=== PATIENT | male | born 1965 | race Caucasian/White ===

== ENCOUNTER 2019-11-02 19:34 | Inpatient (IN) ==
[2019-11-02] MEDS ORDERED: D50W SYRINGE IV PRN (21:13)
[2019-11-02] MEDS ORDERED: POTASSIUM CHLORIDE 20% LIQUID PO PRN (21:13)
[2019-11-02] MEDS ORDERED: POTASSIUM CHLORIDE 40 MEQ/SWI 40 MEQ/100 ML IVPB IV PRN (21:13)
[2019-11-02] MEDS ORDERED: HUMULIN R IV ONE (21:13)
[2019-11-02] MEDS ORDERED: D5 NS 1,000 ML IV PRN (21:13)
[2019-11-02] MEDS ORDERED: POTASSIUM CHLORIDE 20 MEQ/SWI 20 MEQ/100 ML IVPB IV PRN (21:13)
[2019-11-02] MEDS ORDERED: TYLENOL PO PRN (21:13)
[2019-11-02] MEDS ORDERED: MAGNESIUM SULFATE 2 GM/S.W.I. 2 GM/50 ML IVPB IV PRN (21:13)
[2019-11-02] MEDS ORDERED: HUMULIN R 100 UNIT in NS 100 ML IV SCH (21:15)
[2019-11-02] MEDS: NS 1,000 ML IV SCH ×2 (21:42)
[2019-11-02 22:00] LABS: HEMATOCRIT 44.1 % (42.0-52.0); HEMOGLOBIN 14.9 g/dL (14.0-18.0); MCH 27.4 PG (27-31); MCHC 33.8 g/dL (33-37); MCV 81.2 FL (81-99); RBC 5.43 XMIL (4.7-6.1); RDW 13.2 % (11.5-14.5); WBC 18.73 X1000 (4.8-10.8)
[2019-11-02] MEDS ORDERED: VANCOMYCIN IV PER PHARMACY MISC SCH (22:00)
--- NOTE | 2019-11-02 22:21 | HISTORY AND PHYSICAL ---
PRIMARY CARE PHYSICIAN: None. CHIEF COMPLAINT: Nausea and vomiting x3 days. HISTORY OF PRESENTING ILLNESS: A 54-year-old male with a history of diabetes mellitus type 2 and hepatitis C, initially presented to [facility] with complaint of nausea and vomiting for the past 3 days. He states that he was feeling weak. He was evaluated there. He was found to be in DKA and it was thought that he would need admission; however, due to lack of ICU beds he was transferred to [facility] for further evaluation and management. At the time of my examination the patient denied any headache, fever, chills, chest pain or any weight changes, but complained of nausea, vomiting, having some shortness of breath and not feeling well. The patient also admitted to IV drug use with methamphetamine. PAST MEDICAL HISTORY: Includes diabetes mellitus type 2, hepatitis C. PAST SURGICAL HISTORY: None. ALLERGIES: No known drug allergies. MEDICATIONS: Current medications include Novolin 70/30. SOCIAL HISTORY: A [id number] history of smoking, history of alcohol use, history of injecting IV methamphetamine. FAMILY HISTORY: No history of coronary disease. REVIEW OF SYSTEMS: Fourteen-point review of systems is as in HPI. Other systems negative. PHYSICAL EXAMINATION: GENERAL: The patient is resting comfortably, but he is somewhat tremulous. VITAL SIGNS: Temperature 98.1 degrees, pulse 116, respiration 19, blood pressure 148/104. HEENT: Atraumatic, normocephalic. Extraocular movements intact. PERRLA. NECK: No masses. CHEST: Clear to auscultation. CARDIOVASCULAR: Regular rate and rhythm. ABDOMEN: Soft. Positive bowel sounds. EXTREMITIES: No edema. NEUROLOGIC: He is awake, alert and oriented x2. GENITOURINARY: No bladder distention. SKIN: Warm. LABORATORY DATA: WBC 21.6, hemoglobin 13.8, hematocrit 42.5, platelets 523,000. Sodium 118, potassium 5.9, chloride 76, CO2 is 4, BUN is 73, creatinine is 2.6, glucose is 859. ASSESSMENT: This is a 54-year-old male with a history of diabetes mellitus type 2, who initially presented to [facility] with complaint of nausea and vomiting for the past 3 days. He was evaluated there and he was found to be in diabetic ketoacidosis; however, due to lack of intensive care unit beds he was transferred to [facility] for further evaluation and management. 1. Diabetic ketoacidosis. 2. Leukocytosis. 3. Intravenous drug use with methamphetamine. 4. Acute kidney injury. PLAN: 1. We will admit the patient to ICU. 2. We will continue with insulin drip per DKA protocol. 3. We will check blood cultures, urine culture and start the patient on IV antibiotics. 4. We will continue with IV fluids and monitor his renal function. 5. Put patient on DVT prophylaxis with SCDs. 6. We will continue to follow and reassess, and make further recommendations based on the patient's clinical course. cc: Tunde Madrid MD
[2019-11-02 22:26] LABS: ALLEN TEST YES; BE -17.9 mmoll (-3.0-3.0); BLOOD TYPE ARTERIAL; METHB 1.4 % (0.0-1.5); O2(CT) 18.7 mL/dL (15.0-23.0); O2HB 95.7 % (95.0-99.0); PCO2(98.6) 23 mmHg (35-45); PO2(98.6) 97 mmHg (60-100); SAMPLE BLOOD; SAO2 98.7 % (95.0-100.0); THB 13.8 g/dL (11.5-17.4)
[2019-11-02 22:27] LABS: ACETONE SERUM MODERATE (NEGATIVE)
[2019-11-02 22:27] LABS: pH(98.6) 7.18 (7.35-7.45)
[2019-11-02 22:28] LABS: HCO3-(ACT) 10.9 mmoll (20.0-26.0); MODALITY ROOM AIR
[2019-11-02 22:49] LABS: CREATININE 2.3 mg/dL (0.7-1.2); MAGNESIUM 2.5 mg/dL (1.5-2.7); PHOSPHORUS 5.8 mg/dL (2.7-4.5); POTASSIUM 5.9 mmol/L (3.5-5.1)
[2019-11-02 23:08] LABS: HEMOGLOBIN A1C 11.5 % (4.8-6.0)
[2019-11-02 23:28] LABS: AMYLASE 211 U/L (20-200); LIPASE 956 U/L (13-60)
[2019-11-03] MEDS: NS 1,000 ML IV SCH ×4 (00:09→12:25)
[2019-11-03] MEDS: ZOSYN 3.375 GM in NS 50 ML IV SCH ×5 (00:09→23:03)
[2019-11-03 00:56] LABS: UR AMPHETAMINES QUAL NONE DETECTED (NONE DETECT); UR BARBITUATES QUAL NONE DETECTED (NONE DETECT); UR BENZODIAZEPIN QUAL NONE DETECTED (NONE DETECT); UR CANNABINOIDS QUAL NONE DETECTED (NONE DETECT); UR COCAINE QUAL NONE DETECTED (NONE DETECT); UR METHADONE QUAL NONE DETECTED (NONE DETECT); UR OPIATES QUAL NONE DETECTED (NONE DETECT); UR OXYCODONE QUAL NONE DETECTED (NONE DETECT); UR PCP QUAL NONE DETECTED (NONE DETECT)
[2019-11-03] MEDS ORDERED: VANCOMYCIN 1,650 MG in NS 250 ML IV ONE (01:00)
[2019-11-03 01:39] LABS: CALCIUM 7.7 mg/dL (8.8-10.2); CREATININE 1.9 mg/dL (0.7-1.2); MAGNESIUM 2.2 mg/dL (1.5-2.7); PHOSPHORUS 2.4 mg/dL (2.7-4.5); POTASSIUM 5.1 mmol/L (3.5-5.1)
[2019-11-03] MEDS ORDERED: APRESOLINE IV PRN (04:28)
[2019-11-03 05:00] LABS: ALLEN TEST YES; BE -9.9 mmoll (-3.0-3.0); BLOOD TYPE ARTERIAL; HCO3-(ACT) 17.1 mmoll (20.0-26.0); METHB 1.4 % (0.0-1.5); O2(CT) 19.1 mL/dL (15.0-23.0); O2HB 94.1 % (95.0-99.0); PCO2(98.6) 35 mmHg (35-45); PO2(98.6) 78 mmHg (60-100); SAMPLE BLOOD; SAO2 97.3 % (95.0-100.0); THB 14.4 g/dL (11.5-17.4); pH(98.6) 7.27 (7.35-7.45)
[2019-11-03 05:01] LABS: MODALITY ROOM AIR
[2019-11-03 06:46] LABS: URINE SOURCE CATH
[2019-11-03 06:49] LABS: BILIRUBIN URINE NEGATIVE (NEGATIVE); BLOOD URINE MODERATE (NEGATIVE); COLOR YELLOW; GLUCOSE URINE >1000 mg/dL (NEGATIVE); KETONE URINE 40 mg/dL (NEGATIVE); LEUKOCYTES URINE NEGATIVE (NEGATIVE); NITRITE URINE NEGATIVE (NEGATIVE); PROTEIN URINE 50 mg/dL (NEGATIVE); SP GRAVITY URINE 1.022; TURBIDITY URINE CLEAR (CLEAR); UR EPITHELIAL CELLS <10 /HPF (<10); URINE BACTERIA NEGATIVE /HPF; URINE RBC TNTC /HPF (<10); URINE WBC <10 /HPF (<10); UROBILINOGEN URINE NORMAL (NORMAL)
[2019-11-03 07:11] LABS: CALCIUM 7.7 mg/dL (8.8-10.2); CREATININE 1.6 mg/dL (0.7-1.2); MAGNESIUM 2.1 mg/dL (1.5-2.7); PHOSPHORUS 2.1 mg/dL (2.7-4.5); POTASSIUM 4.6 mmol/L (3.5-5.1)
[2019-11-03] MEDS ORDERED: TORADOL IV PRN (09:27)
[2019-11-03] MEDS: APRESOLINE IV PRN ×2 (09:34→16:24)
--- NOTE | 2019-11-03 09:46 | PROGRESS NOTE ---
DATE: 11/03/2019 Mr. Wallace just came in yesterday with nausea and vomiting, came in with DKA. A 54-year-old with a history of diabetes mellitus type 2, hepatitis C. Initially presented to [facility] with a history of nausea and vomiting for the past 3 days, feeling weak. He was found to be in DKA and so was sent here to [facility] for admission. He admits to IV drug use with methamphetamines. PAST MEDICAL HISTORY: Hepatitis C, diabetes mellitus type 2. SOCIAL HISTORY: Thirty year pack history, history of alcohol use, and history of IV methamphetamine. Today, still feels pretty rough. He is on a DKA protocol. PHYSICAL EXAMINATION: Temperature 97.9 degrees, pulse 100, respirations 15, blood pressure 199/104. Pupils are equal and round. Lungs are clear in all lung magallanes. No distended neck veins. Cardiovascular Examination: Regular rhythm and rate without murmur or S3. Urine output was 4700 mL. LABORATORY DATA: On review of his labs from yesterday, white count was elevated at 18,730, hematocrit 44, platelet count 398,000. Sodium 129, potassium 4.6, chloride 99, BUN 52, creatinine 1.6. When he presented, it was 2.3 so it has improved. Blood sugar is still running in the 300s. They are starting to go down below 300 today. Continue DKA protocol. We can give him clear liquids. Renal function is improving. We probably ought to check his transaminases at some point. His lipase was elevated and amylase a little elevated, so he may have a little bit of pancreatitis going on as well. cc: Edvin Shields MD
[2019-11-03 09:53] LABS: CALCIUM 7.6 mg/dL (8.8-10.2); CREATININE 1.4 mg/dL (0.7-1.2); MAGNESIUM 2.1 mg/dL (1.5-2.7); POTASSIUM 3.9 mmol/L (3.5-5.1)
--- NOTE | 2019-11-03 10:36 | EKG Report ---
Test Performed on : 11/03/2019 08:24:33 AM Test Reason : CP Blood Pressure : / mmHG Vent. Rate : 101 BPM Atrial Rate : 101 BPM P-R Int : 130 ms QRS Dur : 088 ms QT Int : 330 ms P-R-T Axes : 066 045 065 degrees QTc Int : 427 ms Sinus tachycardia. Minimal voltage criteria for LVH, may be normal variant Borderline ECG No previous ECGs available Confirmed by Bishnu HECK, Festus Wright ([id number]) on 11/07/2019 9:25:07 AM
[2019-11-03 13:52] LABS: ESTIMATED GFR > 60
[2019-11-03 13:53] LABS: AGAP 12; BUN 37 mg/dL (8-22); CALCIUM 7.4 mg/dL (8.8-10.2); CHLORIDE 99 mmol/L (98-107); COSMO 269; CREATININE 1.1 mg/dL (0.7-1.2); GLUCOSE 230 mg/dL (70-104); MAGNESIUM 2.1 mg/dL (1.5-2.7); PHOSPHORUS 1.2 mg/dL (2.7-4.5); POTASSIUM 3.8 mmol/L (3.5-5.1); SODIUM 126 mmol/L (136-145); TCO2 15 mmol/L (25-35)
[2019-11-03] MEDS ORDERED: POTASSIUM CHLORIDE 10% LIQUID PO PRN (15:42)
[2019-11-03] MEDS: LANTUS INSULIN SUBQ SCH (17:03)
[2019-11-03] MEDS: TORADOL IV PRN ×2 (17:03→23:03)
[2019-11-03 18:06] LABS: ESTIMATED GFR > 60
[2019-11-03 18:11] LABS: AGAP 14; BUN 30 mg/dL (8-22); CALCIUM 7.9 mg/dL (8.8-10.2); CHLORIDE 99 mmol/L (98-107); COSMO 271; CREATININE 1.1 mg/dL (0.7-1.2); GLUCOSE 200 mg/dL (70-104); POTASSIUM 4.1 mmol/L (3.5-5.1); SODIUM 129 mmol/L (136-145); TCO2 16 mmol/L (25-35)
[2019-11-03] MEDS ORDERED: POTASSIUM PHOSPHATE 40 MEQ in NS 250 ML IV ONE (18:16)
[2019-11-03] MEDS: HUMULIN R SUBQ SCH (20:17)
[2019-11-04] MEDS: VANCOMYCIN 1,350 MG in NS 250 ML IV SCH (00:03)
[2019-11-04] MEDS: ZOFRAN IV PRN (04:44)
[2019-11-04] MEDS: ZOSYN 3.375 GM in NS 50 ML IV SCH ×3 (05:09→17:29)
[2019-11-04 06:07] LABS: AGAP 12; ALB/GLOB RATIO 0.8; ALBUMIN 2.4 g/dL (3.5-5.0); ALKALINE PHOSPHATASE 95 U/L (32-122); AMYLASE 64 U/L (20-200); BUN 24 mg/dL (8-22); CALCIUM 7.4 mg/dL (8.8-10.2); CHLORIDE 98 mmol/L (98-107); COSMO 270; ESTIMATED GFR > 60; GLUCOSE 219 mg/dL (70-104); GOT 13 U/L (10-34); GPT 10 U/L (10-44); LIPASE 51 U/L (13-60); POTASSIUM 3.7 mmol/L (3.5-5.1); SODIUM 129 mmol/L (136-145); TCO2 19 mmol/L (25-35); TOTAL BILIRUBIN 0.28 mg/dL (0.20-1.00); TOTAL PROTEIN 5.6 g/dL (6.3-8.3)
[2019-11-04] MEDS: HUMULIN R SUBQ SCH ×4 (06:24→20:22)
[2019-11-04] MEDS: LANTUS INSULIN SUBQ SCH (08:29)
--- NOTE | 2019-11-04 13:50 | PROGRESS NOTE ---
DATE: 11/04/2019 Mr. Wallace says he still do not feel very good and complained of some pain in the left upper quadrant. See if we can advance into maybe some soft food. Temperature 98.1 degrees, pulse 87, respirations 12, blood pressure 159/80. Pupils are equal and round. Lungs are clear in all lung magallanes. Cardiovascular exam regular rhythm, rate without murmur or S3. Abdomen is soft, is tenderness in the left upper quadrant. Positive bowel sounds though. No pedal edema. Urine output was 8200 mL. ASSESSMENT AND PLAN: Diabetic ketoacidosis. It appears he has some pancreatitis as well. He does have a history of hepatitis C and I believe his hepatitis C not sure his status and whether he has been treated or not. Blood sugars doing better. He is on subcu insulin and giving him some long-acting Lantus insulin and we have him on vancomycin and piperacillin. He is on a diabetic diet at this time. We will check some electrolytes tomorrow, phosphorus again tomorrow and a CBC, if white count is back to normal will stop his antibiotics. Also we checked amylase and lipase and they were unremarkable so does not appear he has any active pancreatic irritation. When he presented he did have lipase of 956. cc: Edvin Shields MD
[2019-11-04 15:26] LABS: AGAP 12; ALB/GLOB RATIO 0.9; ALBUMIN 2.5 g/dL (3.5-5.0); ALKALINE PHOSPHATASE 95 U/L (32-122); BUN 20 mg/dL (8-22); CALCIUM 7.3 mg/dL (8.8-10.2); CHLORIDE 96 mmol/L (98-107); COSMO 273; CREATININE 0.9 mg/dL (0.7-1.2); ESTIMATED GFR > 60; GLUCOSE 237 mg/dL (70-104); GOT 14 U/L (10-34); GPT 10 U/L (10-44); MAGNESIUM 2.1 mg/dL (1.5-2.7); PHOSPHORUS 2.2 mg/dL (2.7-4.5); POTASSIUM 3.7 mmol/L (3.5-5.1); SODIUM 131 mmol/L (136-145); TCO2 23 mmol/L (25-35); TOTAL BILIRUBIN 0.22 mg/dL (0.20-1.00); TOTAL PROTEIN 5.3 g/dL (6.3-8.3)
[2019-11-04] MEDS: TORADOL IV PRN (20:09)
[2019-11-05] MEDS: ZOSYN 3.375 GM in NS 50 ML IV SCH ×3 (00:34→12:14)
[2019-11-05] MEDS: VANCOMYCIN 1,350 MG in NS 250 ML IV SCH (01:14)
[2019-11-05] MEDS: HUMULIN R SUBQ SCH ×4 (06:11→20:50)
[2019-11-05 07:09] LABS: AGAP 13; BUN 15 mg/dL (8-22); CALCIUM 8.1 mg/dL (8.8-10.2); CHLORIDE 96 mmol/L (98-107); COSMO 269; CREATININE 0.8 mg/dL (0.7-1.2); ESTIMATED GFR > 60; GLUCOSE 135 mg/dL (70-104); MAGNESIUM 2.3 mg/dL (1.5-2.7); PHOSPHORUS 2.3 mg/dL (2.7-4.5); POTASSIUM 4.1 mmol/L (3.5-5.1); SODIUM 133 mmol/L (136-145); TCO2 24 mmol/L (25-35)
[2019-11-05] MEDS: LANTUS INSULIN SUBQ SCH (09:17)
--- NOTE | 2019-11-05 12:02 | PROGRESS NOTE ---
DATE: 11/05/2019 SUBJECTIVE: Mr. Alen Wallace is doing better. He remains afebrile. We will let him move to regular floor. OBJECTIVE: Vital Signs: Temperature 98.5 degrees, pulse 94, respirations 16, blood pressure 152/84. Eyes: Pupils are equal and round. Lungs: Lungs are clear in all lung magallanes. Cardiovascular exam: Regular rhythm and rate without murmur or S3. : Urine output is 9200 mL. Blood sugar 290, 204 and 284. ASSESSMENT AND PLAN: Diabetic ketoacidosis. Maybe some mild pancreatitis when he first presented, which is improving. Advanced him to a diabetic diet. Does have a history of hepatitis C; not sure whether he has had treatment or not. He is on sliding scale. His electrolytes look like they are doing well. We will check another complete blood count tomorrow, but electrolytes this morning are sodium 133, potassium 4.1, chloride 96, BUN 15, creatinine 0.8. Blood sugars down to 280, 204, 295 and 284, his last several ones, so we will move him to the floor. Hopefully can be discharged home soon. cc: Edvin Shields MD
[2019-11-05] MEDS: ZOFRAN IV PRN (21:50)
[2019-11-06] MEDS: TORADOL IV PRN ×2 (01:36→14:48)
[2019-11-06] MEDS: HUMULIN R SUBQ SCH ×5 (07:02→21:55)
[2019-11-06] MEDS: LANTUS INSULIN SUBQ SCH (08:40)
--- NOTE | 2019-11-06 16:01 | PROGRESS NOTE ---
DATE: 11/06/2019 SUBJECTIVE: Mr. Wallace was sleeping. Appeared to be comfortable. He was easy to arouse. He remains afebrile. OBJECTIVE: Temperature 97.9 degrees, pulse 109, respirations 18, blood pressure 158/92. Pupils are equal and round. Lungs are clear in all lung magallanes. Cardiovascular Examination: Regular rhythm and rate without murmur or S3. Urine output was about 1150 mL. Blood sugars 204, 209, 329, and 463. ASSESSMENT/PLAN: Diabetic ketoacidosis on presentation. He is doing better. He is tolerating his diabetic diet. LABORATORY DATA: Blood sugars have been down, still up in the 400 range, so I am going to add 70/30 to his regimen twice a day at 12 units and I will recheck his electrolytes and CBC in the morning. cc: Edvin Shields MD
[2019-11-06] MEDS: NOVOLOG MIX 70/30 SUBQ SCH (17:10)
[2019-11-07 04:44] VITALS: BP 156/87
[2019-11-07] MEDS: NOVOLOG MIX 70/30 SUBQ SCH (06:29)
[2019-11-07] MEDS: HUMULIN R SUBQ SCH (06:30)
[2019-11-07] MEDS ORDERED: INSULIN PEN NEEDLES ONE (06:30)
[2019-11-07 08:13] LABS: BASO# 0.02 X1000 (0.0-0.2); BASO% 0.2 % (0.0-0.8); EOS# 0.23 X1000 (0.0-0.7); EOS% 1.8 % (0.0-10.0); HEMATOCRIT 36.5 % (42.0-52.0); HEMOGLOBIN 12.4 g/dL (14.0-18.0); IMM GRAN# 0.07 X1000 (0.0-0.04); IMM GRAN% 0.5 % (0.0-0.5); LYMPH# 1.23 X1000 (1.2-3.4); LYMPH% 9.6 % (20.5-51.1); MCH 27.3 PG (27-31); MCV 80.2 FL (81-99); MONO# 0.54 X1000 (0.11-0.59); MONO% 4.2 % (1.7-9.3); MPV 9.2 FL (7.4-10.4); NEUT# 10.66 X1000 (1.4-6.5); NEUT% 83.7 % (42.2-75.2); PLT 305 X1000 (130-400); RBC 4.55 XMIL (4.7-6.1); RDW 12.9 % (11.5-14.5); WBC 12.75 X1000 (4.8-10.8)
[2019-11-07 08:29] LABS: AGAP 9; BUN 17 mg/dL (8-22); CALCIUM 7.9 mg/dL (8.8-10.2); CHLORIDE 96 mmol/L (98-107); COSMO 268; CREATININE 0.8 mg/dL (0.7-1.2); ESTIMATED GFR > 60; GLUCOSE 202 mg/dL (70-104); MAGNESIUM 2.1 mg/dL (1.5-2.7); PHOSPHORUS 2.6 mg/dL (2.7-4.5); POTASSIUM 4.1 mmol/L (3.5-5.1); SODIUM 130 mmol/L (136-145); TCO2 25 mmol/L (25-35)
--- NOTE | 2019-11-07 08:29 | DISCHARGE SUMMARY ---
ADMISSION DATE: 11/02/2019 DISCHARGE DATE: 11/07/2019 PRIMARY CARE PHYSICIAN: He has no primary care physician. HISTORY OF PRESENT ILLNESS: He presented on 11/02/2019 with nausea and vomiting for 3 days. A 54- year-old with a history of diabetes mellitus type 2 and hepatitis C. Initially presented to [facility]. Complained of nausea and vomiting. States that he was feeling weak. On evaluation there, found to be in diabetic ketoacidosis and was sent over here to the ICU. HOSPITAL COURSE: He was put on the diabetic protocol. Given fluids. Thought initially he might have some pancreatitis but his enzymes cleared pretty quickly. He showed steady progress. His acidosis diminished and we were able to advance his diet and put him on sliding scale. PHYSICAL EXAMINATION: On 11/07/2019, afebrile, temperature 98 degrees, pulse has been below 100, blood pressures 140-156/75-87. His pupils are equal and round. Lungs are clear in all lung magallanes. Cardiovascular Examination: Regular rhythm and rate without murmur or S3. Abdomen is soft. Skin is warm and dry. PLAN: He will be discharged. He is supposed to get Novolin 70/30 which he gets 25 units twice a day. We will put him back on that regimen. He was getting his Suboxone and he will need to go back and get Suboxone from the clinic. That will be all of his medications. cc: Edvin Shields MD
[2019-11-07] MEDS: LANTUS INSULIN SUBQ SCH (08:41)
[2019-11-07] MEDS ORDERED: FLU VACCINE IM ONE (08:43)
[2019-11-07] MEDS ORDERED: PNEUMOVAX 23 IM ONE (08:44)
== END 2019-11-07 11:08 | disposition home or self-care (01) | DRG 638 ==
LOC: ICU 19:34 → SUATTDRO 19:34 → 3N 11-05 15:22
PROVIDERS: ATTEND Emergency Medicine

== ENCOUNTER 2019-11-28 13:22 | Inpatient (IN) ==
--- NOTE | 2019-11-28 13:45 | EKG Report ---
Test Performed on : 11/28/2019 1:43:20 PM Test Reason : hyperglycemia Blood Pressure : / mmHG Vent. Rate : 096 BPM Atrial Rate : 096 BPM P-R Int : 138 ms QRS Dur : 076 ms QT Int : 356 ms P-R-T Axes : 063 057 060 degrees QTc Int : 449 ms Normal sinus rhythm. Minimal voltage criteria for LVH, may be normal variant Borderline ECG When compared with ECG of 03-NOV-2019 08:24, No significant change was found Unconfirmed Result
[2019-11-28 14:34] LABS: URINE SOURCE CLEAN CATCH
[2019-11-28] MEDS ORDERED: ZOFRAN ODT PO ONE (14:34)
[2019-11-28] MEDS ORDERED: NS 1,000 ML IV ONE ×2 (14:35→15:31)
[2019-11-28] MEDS ORDERED: HUMULIN R SUBQ ONE (14:35)
[2019-11-28 14:42] LABS: BILIRUBIN URINE NEGATIVE (NEGATIVE); BLOOD URINE NEGATIVE (NEGATIVE); COLOR STRAW; GLUCOSE URINE >1000 mg/dL (NEGATIVE); KETONE URINE NEGATIVE (NEGATIVE); LEUKOCYTES URINE NEGATIVE (NEGATIVE); NITRITE URINE NEGATIVE (NEGATIVE); PROTEIN URINE TRACE mg/dL (NEGATIVE); TURBIDITY URINE CLEAR (CLEAR); UROBILINOGEN URINE NORMAL (NORMAL)
[2019-11-28 14:43] LABS: UR EPITHELIAL CELLS <10 /HPF (<10); URINE BACTERIA NEGATIVE /HPF; URINE RBC <10 /HPF (<10); URINE WBC <10 /HPF (<10)
[2019-11-28] MEDS ORDERED: REGLAN IV ONE (15:03)
[2019-11-28 15:11] LABS: ALLEN TEST YES; BE 1.9 mmoll (-3.0-3.0); BLOOD TYPE ARTERIAL; HCO3-(ACT) 26.3 mmoll (20.0-26.0); METHB 1.2 % (0.0-1.5); O2(CT) 20.6 mL/dL (15.0-23.0); O2HB 94.9 % (95.0-99.0); PCO2(98.6) 29 mmHg (35-45); PO2(98.6) 100 mmHg (60-100); SAMPLE BLOOD; SAO2 98.5 % (95.0-100.0); THB 15.4 g/dL (11.5-17.4); pH(98.6) 7.52 (7.35-7.45)
[2019-11-28 15:13] LABS: BASO# 0.02 X1000 (0.0-0.2); BASO% 0.3 % (0.0-0.8); EOS# 0.02 X1000 (0.0-0.7); EOS% 0.3 % (0.0-10.0); HEMATOCRIT 30.1 % (42.0-52.0); HEMOGLOBIN 9.7 g/dL (14.0-18.0); IMM GRAN# 0.03 X1000 (0.0-0.04); IMM GRAN% 0.4 % (0.0-0.5); LYMPH# 1.31 X1000 (1.2-3.4); LYMPH% 19.4 % (20.5-51.1); MCH 27.3 PG (27-31); MCHC 32.2 g/dL (33-37); MCV 84.8 FL (81-99); MONO% 7.4 % (1.7-9.3); MPV 8.6 FL (7.4-10.4); NEUT# 4.89 X1000 (1.4-6.5); NEUT% 72.2 % (42.2-75.2); PLT 350 X1000 (130-400); RBC 3.55 XMIL (4.7-6.1); RDW 15.6 % (11.5-14.5); WBC 6.77 X1000 (4.8-10.8)
[2019-11-28 15:13] LABS: MODALITY ROOM AIR
[2019-11-28] MEDS ORDERED: TYLENOL PO ONE (15:13)
[2019-11-28] MEDS ORDERED: MAXIPIME 2 GM/NS 2 GM/100 ML IVPB IV ONE (15:31)
[2019-11-28 15:42] LABS: ACETONE SERUM NEGATIVE (NEGATIVE)
--- NOTE | 2019-11-28 15:52 | Diag Imaging Result Doc PS360 ---
EXAM: CHEST-PORTABLE 11/28/2019 HISTORY: nausea and vomiting TECHNIQUE: AP portable upright at 1540 COMMENT: There is no evidence of acute cardiac or pulmonary disease. Compared to 08/19/2014 there has been no significant change in the appearance the chest. IMPRESSION: No evidence of acute disease. Electronically signed by Anil Gilliam 11/28/2019 3:49 PM
[2019-11-28 16:12] LABS: AGAP 10; ALB/GLOB RATIO 0.8; ALBUMIN 2.8 g/dL (3.5-5.0); ALKALINE PHOSPHATASE 109 U/L (32-122); BUN 18 mg/dL (8-22); CALCIUM 8.6 mg/dL (8.8-10.2); CHLORIDE 91 mmol/L (98-107); COSMO 283; CREATININE 1.1 mg/dL (0.7-1.2); ESTIMATED GFR > 60; GLUCOSE 512 mg/dL (70-104); GOT 18 U/L (10-34); GPT 16 U/L (10-44); LIPASE 77 U/L (13-60); POTASSIUM 4.5 mmol/L (3.5-5.1); SODIUM 129 mmol/L (136-145); TCO2 28 mmol/L (25-35); TOTAL BILIRUBIN < 0.15 mg/dL (0.20-1.00); TOTAL PROTEIN 6.4 g/dL (6.3-8.3)
[2019-11-28] MEDS ORDERED: ZOFRAN IV PRN (16:36)
[2019-11-28] MEDS ORDERED: TYLENOL PO PRN (16:36)
--- NOTE | 2019-11-28 16:55 | PROVIDER DOCUMENTATION ---
HPI-Abdominal Pain/GI Problem - General Chief Complaint: Vomiting Stated Complaint: CHOKING Time Seen by Provider: 11/28/19 14:18 Source: patient Allergies/Adverse Reactions: Patient Allergies Allergy/AdvReac Type Severity Reaction Status Date / Time No Known Allergies Allergy Verified 08/15/14 12:04 Home Medications: Home Medication List Medication Instructions Recorded Confirmed Last Taken Type Buprenorphine/Naloxone S.l. 1 each SL BID 11/12/18 11/28/19 Unknown History [Suboxone 8 mg/2 mg Film] Insulin Novolog 70/30 [Novolog Mix 25 unit SUBQ BID AC 30 Days #1 11/07/19 11/28/19 Unknown Rx 70/30] [email or web address].pen - History of Present Illness-ABD Nature of Presenting Problems: 54 yo male presents to [facility] ED c/o trouble swallowing with nausea and vomiting everytime he tries to eat x 2 days. He has more problems with solids versus liquids. He states he chokes while eating. He has no PCP and denies current drug use. he has noted substance abuse history on suboxone currently. No drugs. Smoker. Denies alcohol use. He has type 2 diabetes mellitus on insulin. No abdominal pain. No fevers. No constipation or diarrhea. No dysuria. Quality of Pain: reports: none Severity in ED: reports: moderate Onset/Duration: reports: abrupt Timing: reports: still present Activities at Onset: reports: none Exposure to sick contacts?: No Modifying Factors: worse with: coughing, eating Associated Symptoms: reports: loss of appetite. denies: constipation, fatigue, fever/chills, genitourinary problems Dark Stools Present?: reports: none noticed Rectal Bleeding: reports: none Rectal Pain: reports: none # of Vomiting Episodes: 5 Emesis Description: reports: other (food contents) Bruising or Bleeding Gums?: No Similar Symptoms Previously?: No Recently seen or treated by another doctor?: Yes (last admission for DKA months ago) Review of Systems - Adult - REVIEW OF SYSTEMS - ADULT Constitutional: reports: no symptoms reported. denies: fever Eyes: reports: no symptoms reported Ears, Nose, Mouth & Throat: reports: no symptoms reported Cardiovascular: reports: no symptoms reported Respiratory: reports: no symptoms reported Gastrointestinal: reports: difficulty swallowing, nausea, vomiting. denies: abdominal pain, diarrhea, frequent heartburn, rectal bleeding Genitourinary: reports: no symptoms reported. denies: dysuria, discharge, frequency, flank pain, frequent UTI's, hematuria Musculoskeletal: reports: no symptoms reported Integumentary: reports: no symptoms reported Neurological: reports: no symptoms reported. denies: dizziness/vertigo, loss of balance Psychiatric: reports: no symptoms reported Endocrine: reports: no symptoms reported. denies: goiter, increased thirst, polyuria Hematologic/Lymphatic: reports: no symptoms reported Allergic/Immunologic: reports: no symptoms reported All Other Systems: Reviewed and Negative Past History - Adult - PAST MEDICAL HISTORY-ADULT Review of Records: reports: Old Records Reviewed Major Childhood Illnesses: reports: denies history Cardiovascular: reports: denies history Respiratory: reports: sleep apnea Gastrointestinal: reports: GERD Obstetrical/Gynecological: reports: denies history Genitourinary: reports: kidney disease (renal failure) Musculoskeletal: reports: denies history Neurological: reports: denies history Psychiatric: reports: denies history Endocrine/Immune: reports: Diabetes, other (hx of hepatitis C) Other Conditions: reports: denies history - PRIOR SURGERIES/PROCEDURES Surgical/Procedure History: reports: tonsillectomy - IMMUNIZATION STATUS Childhood Immunizations: See Nurse Assessment Flu Vaccine: See Nurse Assessment - FAMILY HISTORY Family History: reviewed, not pertinent - SOCIAL HISTORY Smoking: greater than 1 pack/day Substance Use: none presently/history of abuse (on suboxone) Alcohol Use Frequency: never Living Situation: alone Physical Exam-General - PHYSICAL EXAM-ADULT Initial Vital Signs Reviewed: Yes - CONSTITUTIONAL General Appearance: alert - EYES Eyes: PERRL/EOMI - HEAD, EARS, NOSE, MOUTH & THROAT HENMT: normocephalic/atraumatic - NECK Neck: non-tender - RESPIRATORY Respiratory: chest non-tender, lungs clear, normal breath sounds - CARDIOVASCULAR Cardiovascular: normal peripheral pulses, no edema, tachycardia - GASTROINTESTINAL (ABDOMEN) Abdominal Exam: non tender - LYMPHATIC Lymphatic: no adenopathy - MUSCULOSKELETAL Back Exam: normal inspection Extremity: normal range of motion Peripheral Pulses: radial (R): 2+, radial (L): 2+ - SKIN Integumentary: normal color - NEUROLOGIC Neurologic: check embosser II-XII nml as tested, grossly normal - PSYCHIATRIC Psych/Mental Status: normal mood/affect Progress - PLAN OF CARE/RESULTS Progress/Plan/Lab Results: Vital Signs - 8 hr 11/28/19 13:25 11/28/19 14:47 Temperature 98 F 98.3 F Pulse Rate 105 H 114 H Respiratory Rate 20 18 Blood Pressure 150/83 137/115 O2 Sat by Pulse Oximetry 100 100 Laboratory Results - last 24 hr 11/28/19 11/28/19 11/28/19 13:35 14:16 15:00 WBC 6.77 RBC 3.55 L Hgb 9.7 L Hct 30.1 L MCV 84.8 MCH 27.3 MCHC 32.2 L RDW Std Deviation 15.6 H Plt Count 350 MPV 8.6 Immature Gran % (Auto) 0.4 Neut % (Auto) 72.2 Lymph % (Auto) 19.4 L [place] % (Auto) 7.4 Eos % (Auto) 0.3 Baso % (Auto) 0.3 Immature Gran # (Auto) 0.03 Neut # (Auto) 4.89 Lymph # (Auto) 1.31 [place] # (Auto) 0.50 Eos # (Auto) 0.02 Baso # (Auto) 0.02 Specimen Type Sample Site pH pCO2 pO2 HCO3 Base Excess Oxyhemoglobin ABG O2 Sat (Calculated) ABG O2 Saturation ABG Carboxyhemoglobin ABG Methemoglobin Edvin Test A-a O2 Difference Total Hemoglobin Lactate Blood Gas Modality FiO2 % Sodium Potassium Chloride Carbon Dioxide Anion Gap BUN Creatinine Estimated GFR/1.73 m2 BUN/Creatinine Ratio Glucose POC Glucose 489 H D Calculated Osmolality Calcium Total Bilirubin AST ALT Alkaline Phosphatase Total Protein Albumin Globulin Albumin/Globulin Ratio Lipase Urine Source CLEAN CATCH Urine Color STRAW Urine Turbidity CLEAR Urine pH 7.0 Ur Specific [place] 1.030 Urine Protein TRACE A Ur Glucose (Stick) >1000 A Ur Ketones (Stick) NEGATIVE Urine Blood NEGATIVE Urine Nitrite NEGATIVE Urine Bilirubin NEGATIVE Urobilinogen Dipstick NORMAL Urine Leukocytes NEGATIVE Urine WBC (Auto) <10 Urine RBC (Auto) <10 U Epithel Cells (Auto) <10 Urine Bacteria (Auto) NEGATIVE Acetone Level 11/28/19 11/28/19 15:00 15:02 WBC RBC Hgb Hct MCV MCH MCHC RDW Std Deviation Plt Count MPV Immature Gran % (Auto) Neut % (Auto) Lymph % (Auto) [place] % (Auto) Eos % (Auto) Baso % (Auto) Immature Gran # (Auto) Neut # (Auto) Lymph # (Auto) [place] # (Auto) Eos # (Auto) Baso # (Auto) Specimen Type ARTERIAL Sample Site L RADIAL pH 7.52 H pCO2 29 L pO2 100 HCO3 26.3 H Base Excess 1.9 Oxyhemoglobin 94.9 L ABG O2 Sat (Calculated) 20.6 ABG O2 Saturation 98.5 ABG Carboxyhemoglobin 2.50 ABG Methemoglobin 1.2 Edvin Test YES A-a O2 Difference 13.0 Total Hemoglobin 15.4 Lactate 2.50 H Blood Gas Modality ROOM AIR FiO2 % 21.0 Sodium 129 L Potassium 4.5 Chloride 91 L Carbon Dioxide 28 Anion Gap 10 BUN 18 Creatinine 1.1 Estimated GFR/1.73 m2 > 60 BUN/Creatinine Ratio 16 Glucose 512 H* POC Glucose Calculated Osmolality 283 Calcium 8.6 L Total Bilirubin < 0.15 L AST 18 ALT 16 Alkaline Phosphatase 109 Total Protein 6.4 Albumin 2.8 L Globulin 3.6 Albumin/Globulin Ratio 0.8 Lipase 77 H Urine Source Urine Color Urine Turbidity Urine pH Ur Specific [place] Urine Protein Ur Glucose (Stick) Ur Ketones (Stick) Urine Blood Urine Nitrite Urine Bilirubin Urobilinogen Dipstick Urine Leukocytes Urine WBC (Auto) Urine RBC (Auto) U Epithel Cells (Auto) Urine Bacteria (Auto) Acetone Level NEGATIVE Orders Category Date Time Status Admit - [facility] Routine AdmDCTranf 11/28/19 16:36 Active Activity - Up with Assistance ORDERED Care 11/28/19 16:36 Active FSBS/Accucheck Result AC + HS Care 11/28/19 16:36 Active Diabetic Diet Diet 11/28/19 16:36 Active CHEST-PORTABLE [RAD] Stat Exams 11/28/19 15:31 Completed ABG [RESP] Routine Lab 11/28/19 15:02 Completed BLOOD CULTURE [BLDCUL] Stat Lab 11/28/19 15:32 Ordered CBC WITH ELECTRONIC DIFF [HEME] Stat Lab 11/28/19 15:00 Completed COMPREHENSIVE METABOLIC PANEL [CHEM] Stat Lab 11/28/19 15:00 Completed Ketone [ACETONE SERUM] [CHEM] Stat Lab 11/28/19 15:00 Completed LACTATE, PLASMA [CHEM] Stat Lab 11/28/19 15:00 Received LIPASE [CHEM] Stat Lab 11/28/19 15:00 Completed URINALYSIS [URINALYSIS] Stat Lab 11/28/19 14:16 Completed 0.9% Sodium Chloride Inj [Ns] 1,000 ml Med 11/28/19 16:45 Active IV 125 mls/hr 0.9% Sodium Chloride Inj [Ns] 1,000 ml Med 11/28/19 14:35 Discontinued IV 999 mls/hr 0.9% Sodium Chloride Inj [Ns] 1,000 ml Med 11/28/19 15:31 Discontinued IV 999 mls/hr Acetaminophen [Tylenol] Med 11/28/19 15:13 Discontinued 1,000 mg PO NOW ONE Acetaminophen [Tylenol] Med 11/28/19 16:36 Active 650 mg PO Q6H PRN PRN Buprenorphine/Naloxone S.l. [Suboxone 8 mg/2 mg Film] Med 11/28/19 21:00 Ordered 1 each SL BID CefEPIME 2 GM/NS [Maxipime 2 gm/Ns] Med 11/28/19 15:31 Discontinued 2 gm in 100 ml IV NOW Insulin Human Regular [Humulin R] Med 11/28/19 14:35 Discontinued 10 unit SUBQ NOW ONE Insulin Human Regular [Humulin R] Med 11/28/19 21:00 Active See Protocol SUBQ 0700,1100,1600,2100 Metoclopramide [Reglan] Med 11/28/19 15:03 Discontinued 10 mg IV NOW ONE Omeprazole [Prilosec] Med 11/28/19 21:00 Active 40 mg PO BID Ondansetron Odt [Zofran Odt] Med 11/28/19 14:34 Discontinued 4 mg PO NOW ONE Ondansetron [Zofran] Med 11/28/19 16:36 Active 4 mg IV Q4H PRN PRN Generalized Adult Illness >60 Stat Oth 11/28/19 13:35 Ordered EKG [EKG] Stat Ther 11/28/19 13:37 Draft Transfer/Admit Order [TRANSFER] Routine Transfer 11/28/19 16:32 Ordered No evidence of DKA currently. Given regular insulin. Also given zofran and reglan due to intractable nausea and vomiting. Noted elevated lactic acid and given cefepime and IV fluids x 3 L with normal saline. Patient HD stable. Admit to Dr. Shivani banks for IDDM with hyperglycemia. Patient aware and agrees with plan of care. No PCP. No infectious source at this time. Result Diagrams: 11/28/19 15:00 11/28/19 15:00 - XRAY 1 XRAY Study: Chest Impression: Normal, See EMR Report (EXAM: CHEST-PORTABLE 11/28/2019 HISTORY: nausea and vomiting TECHNIQUE: AP portable upright at 1540 COMMENT: There is no evidence of acute cardiac or pulmonary disease. Compared to 08/19/2014 there has been no significant change in the appearance the chest. IMPRESSION: No evidence of acute disease. Electronically signed by Anil Gilliam 11/28/2019 3:49 PM) Departure - Departure Date of Disposition Decision: 11/28/19 Time of Disposition Decision: 17:09 DIAGNOSIS: Diabetes mellitus, insulin dependent (IDDM), uncontrolled, Nausea and vomiting, Lactic acidosis Disposition: HOME 01 Certified Medical Emergency: Emergent Condition: Fair - Critical Care Note This patient required my direct & personal management of CC.: No Attestation - Physician/ SUSI Attestation Patient care was provided by Advanced Practice Provider:: No The physician spent face to face time with patient:: Yes Advanced Practice Provider documentation review:: Supervising physician onsite and consulted in the evaluation and care of this patient. The physician did have a face to face encounter with the patient.
[2019-11-28] MEDS ORDERED: SODIUM CHLORIDE 0.9% INJ PRN (17:31)
[2019-11-28] MEDS ORDERED: PHENERGAN IV PRN (17:31)
[2019-11-28 18:20] LABS: UR AMPHETAMINES QUAL NONE DETECTED (NONE DETECT); UR BARBITUATES QUAL NONE DETECTED (NONE DETECT); UR BENZODIAZEPIN QUAL NONE DETECTED (NONE DETECT); UR CANNABINOIDS QUAL NONE DETECTED (NONE DETECT); UR COCAINE QUAL NONE DETECTED (NONE DETECT); UR METHADONE QUAL NONE DETECTED (NONE DETECT); UR OPIATES QUAL NONE DETECTED (NONE DETECT); UR OXYCODONE QUAL NONE DETECTED (NONE DETECT); UR PCP QUAL NONE DETECTED (NONE DETECT)
--- NOTE | 2019-11-28 18:38 | ED EKG INTERP ---
This chart was entered by Rebekah Spence Scribe, acting as scribe for Ariadna Shelton MD. EKG Interpretation - EKG Time of EKG reading by physician:: 13:47 EKG Read and Signed by:: Ariadna Shelton EKG Interpretation (*Must complete 3 of following elements*): Abnormal Rate: 96 Rhythm: nsr [place]: normal QRS: LVH (minimal voltage criteria, may be normal variant) [place] Interval: normal ST Wave: normal Attestation - Physician/ SUSI Attestation Patient care was provided by Advanced Practice Provider:: No The physician spent face to face time with patient:: No Advanced Practice Provider documentation review:: Supervising physician onsite and consulted in the evaluation and care of this patient. The physician did not have a face to face encounter with the patient. This chart was documented by the indicated scribe, (Rebekah Spence Scribe) and accurately reflects the services I performed and decisions made by me, Ariadna Shelton MD, as attested by the provider's signature.
[2019-11-28] MEDS: PROTONIX IV SCH (18:47)
--- NOTE | 2019-11-28 18:55 | HISTORY AND PHYSICAL ---
ADDENDUM: This is a diabetic gentleman who is here fairly frequently unfortunately for hyperglycemia, but he has not been taking his regular insulin for the last 24 hours because he has not been eating. I think he has issues with compliance but he has had intractable nausea, vomiting, he got a diabetic tray when I examined him around 5 and he started throwing that up after just eating everything almost on the plate. In any case patient was admitted. He did qualify for sepsis but there is no clear source. He did not have a white count. He did not have evidence of end-organ damage so I am not entirely sure this is truly sepsis. His lactate was elevated but that could be related to multiple things, his lactate was 3.1 but then the blood gas shows it is only 2.5. I do not think he has sepsis. I am going to hold off on other antibiotics. I do believe possibly he has gastroparesis so will get a gastric emptying study on him tomorrow. DISPOSITION: Pending his clinical status and tolerance of p.o. medicines. Diabetes. He has got uncontrolled diabetes with a sugar over 500 and hyponatremia is likely pseudo. He is not acidotic if anything he is alkalotic which may be a contraction alkalosis. He has no gap and his acetone is normal so we will continue with a tight sliding scale and follow. This is a face-to- face encounter note with Amy Mahoney. His abdominal exam, lung exam is clear, did not appreciate any significant issues there. cc: Felix Parrish MD
--- NOTE | 2019-11-28 19:36 | HISTORY AND PHYSICAL ---
PRIMARY CARE PROVIDER: No one. CHIEF COMPLAINT: Difficulty swallowing with vomiting. HISTORY OF PRESENT ILLNESS: Mr. Alen Wallace is a 54-year-old male with a medical history of uncontrolled diabetes mellitus type 2, who was recently admitted for DKA earlier this month, also with history of hepatitis C and CKD. He states that pretty much since his discharge he started having issues with swallowing, easily choked and easily vomits. He is hyperglycemic as well. He states that there is nausea but mostly because of swallowing. His white count is normal. He is little hyponatremic. Albumin is low, dehydrated with an elevated lactate. No signs or symptoms of infection at this time. PAST MEDICAL HISTORY: 1. Diabetes mellitus type 2 uncontrolled. 2. Hepatitis C. 3. CKD stage 2, but this looks like it has resolved. SURGICAL HISTORY: He thinks he has had an EGD done before. SOCIAL HISTORY: He is a 1-pack per day smoker, started at the age of 18 but unable to smoke very much for the past month. He quit drinking alcohol about a year ago, prior to that was a weekend drinker. He smokes marijuana about once a month and last time was 1 month ago. He uses IV methamphetamines. Last time was about a month ago. He states that is about every 2 months that he does that. He does have 3 daughters. He has a common-law . He is currently not working. FAMILY HISTORY: Mother of COPD. His father when the patient was young. ALLERGIES: No known drug allergies. HOME MEDICATIONS: 1. He is on Suboxone 8 mg sublingual twice a day. 2. Insulin 70/30, 25 units subcutaneous b.i.d. before meals REVIEW OF SYSTEMS: Fourteen-point review of systems are complete, and all were negative except for those mentioned above in HPI. PHYSICAL EXAMINATION: VITAL SIGNS: Temperature 98.3 degrees, heart rate 114, respiratory rate 18, blood pressure 150/83, O2 saturation 100% on room air. GENERAL: Mr. Alen Wallace is a 54-year-old male. He is in no acute distress, but he is very anxious, and he is having some emesis episodes. He is able to answer questions appropriately. HEENT: Atraumatic, normocephalic. Pupils equal, round, reactive to light. Extraocular movements intact. Mucous membranes are moist. NECK: Trachea midline. CARDIOVASCULAR: S1, S2. Tachycardic rate and rhythm. No rubs, gallops, murmurs. No lower extremity edema. +2 dorsalis and radial pulses. Negative for JVD or carotid bruits. PULMONARY: Clear to auscultate bilateral breath sounds. No accessory muscle use or work of breathing noted. GASTROINTESTINAL: Soft, nontender. Hypoactive bowel sounds. Positive bowel sounds x4. EXTREMITIES: Moves all extremities equally. Full range of motion. NEUROLOGIC: A and O x3. Follows commands. Sensory is intact. SKIN: Warm, dry, intact. LABORATORY DATA: White blood cells 6000, hemoglobin 9, hematocrit 30, platelet count 350,000. ABGs on room air: pH 7.52, pCO2 29, pO2 100, bicarb 26, base excess 1.9, saturation 95%. Lactate 2.5. Sodium 129, potassium 4.5, BUN 18, creatinine is 1.1, glucose 512, calcium 8.6, bilirubin is less than 0.15, AST 18, ALT 16, albumin is 2.8. Lipase is 77. Serum lactate is 3.1. Urinalysis: Trace protein, over a 1000 glucose. Acetone negative. IMAGING: Chest x-ray: No acute disease. EKG: Sinus rhythm, rate 96. QTc was 449. ASSESSMENT AND PLAN: 1. Diabetes mellitus type 2, currently uncontrolled with hyperglycemia. We will start him on a sliding scale insulin, pattern blood glucoses, diabetic diet. 2. Intractable nausea and vomiting with complaints of dysphagia. We will get a swallow evaluation, and we can do Phenergan and Zofran p.r.n. We can even add Ativan to help with the nausea and the anxiety. 3. Anxiety. P.r.n. Ativan IV, which can have a secondary assistance with anxiety. 4. Polysubstance abuse. We will get a urine drug screen. He admits to marijuana and intravenous methamphetamines. 5. History of hepatitis C. Liver enzymes are good. 6. Reported chronic kidney disease, but it looks like he had some acute kidney injury earlier this month, and that is resolved. 7. Tobacco abuse. Cessation discussed. 8. Protein calorie malnutrition. He has been started on diabetic diet. It may be an issue that he is not swallowing well so swallow will be tested. May have to consult Nutrition if we need to. 9. Deep venous thrombosis prophylaxis. Lovenox. Dictated by COURTNEY Hassan for Felix Parrish MD cc: COURTNEY Hassan MD
[2019-11-28] MEDS ORDERED: PRILOSEC PO SCH (21:00)
[2019-11-28] MEDS: NS 1,000 ML IV SCH (21:58)
[2019-11-28] MEDS: SUBOXONE 8 MG/2 MG FILM SL SCH (21:59)
[2019-11-28] MEDS: ATIVAN IV PRN (22:21)
[2019-11-28] MEDS: HUMULIN R SUBQ SCH (23:42)
[2019-11-29] MEDS ORDERED: D50W SYRINGE IV STA (06:57)
[2019-11-29] MEDS: PROTONIX IV SCH ×2 (07:15→17:02)
[2019-11-29] MEDS: HUMULIN R SUBQ SCH ×4 (07:17→18:18)
[2019-11-29 07:49] LABS: AGAP 10; ALBUMIN 2.6 g/dL (3.5-5.0); ALKALINE PHOSPHATASE 91 U/L (32-122); BUN 13 mg/dL (8-22); CALCIUM 7.9 mg/dL (8.8-10.2); CHLORIDE 104 mmol/L (98-107); COSMO 269; CREATININE 0.9 mg/dL (0.7-1.2); ESTIMATED GFR > 60; GLUCOSE 48 mg/dL (70-104); GOT 16 U/L (10-34); GPT 13 U/L (10-44); MAGNESIUM 1.6 mg/dL (1.5-2.7); POTASSIUM 4.1 mmol/L (3.5-5.1); SODIUM 136 mmol/L (136-145); TCO2 22 mmol/L (25-35); TOTAL BILIRUBIN < 0.15 mg/dL (0.20-1.00); TOTAL PROTEIN 5.2 g/dL (6.3-8.3)
[2019-11-29 08:51] LABS: BASO# 0.05 X1000 (0.0-0.2); BASO% 1.1 % (0.0-0.8); EOS# 0.08 X1000 (0.0-0.7); EOS% 1.8 % (0.0-10.0); HEMATOCRIT 25.6 % (42.0-52.0); HEMOGLOBIN 8.1 g/dL (14.0-18.0); IMM GRAN# 0.02 X1000 (0.0-0.04); IMM GRAN% 0.4 % (0.0-0.5); LYMPH# 1.15 X1000 (1.2-3.4); LYMPH% 25.3 % (20.5-51.1); MCH 27.4 PG (27-31); MCHC 31.6 g/dL (33-37); MCV 86.5 FL (81-99); MONO# 0.39 X1000 (0.11-0.59); MONO% 8.6 % (1.7-9.3); MPV 8.4 FL (7.4-10.4); NEUT# 2.85 X1000 (1.4-6.5); NEUT% 62.8 % (42.2-75.2); PLT 259 X1000 (130-400); RBC 2.96 XMIL (4.7-6.1); RDW 16.1 % (11.5-14.5); WBC 4.54 X1000 (4.8-10.8)
[2019-11-29] MEDS: NS 1,000 ML IV SCH ×3 (08:53→15:50)
[2019-11-29] MEDS: ATIVAN IV PRN ×2 (11:51→16:40)
[2019-11-29] MEDS: SUBOXONE 8 MG/2 MG FILM SL SCH ×2 (12:12→22:22)
--- NOTE | 2019-11-29 12:20 | Diag Imaging Result Doc PS360 ---
GASTRIC EMPTYING - 11/29/2019 INDICATION: nausea/emesis in a diabetic TECHNIQUE: 630 uCi of labeled solid food was ingested COMPARISON: None FINDINGS: The T1 half of gastric emptying is 54 minutes. This is a normal value. IMPRESSION: Negative exam. Electronically signed by Alejandro Izquierdo 11/29/2019 12:18 PM
[2019-11-29] MEDS: SODIUM CHLORIDE 0.9% INJ SCH (17:02)
[2019-11-29] MEDS ORDERED: D50W SYRINGE IV ONE (23:50)
[2019-11-30] MEDS: HUMULIN R SUBQ SCH ×5 (01:56→22:10)
[2019-11-30] MEDS: NS 1,000 ML IV SCH ×5 (02:01→17:39)
[2019-11-30] MEDS: PROTONIX IV SCH ×2 (06:13→18:30)
[2019-11-30] MEDS ORDERED: HUMULIN R SUBQ SCH (07:00)
[2019-11-30 07:06] LABS: BASO# 0.02 X1000 (0.0-0.2); BASO% 0.3 % (0.0-0.8); EOS# 0.12 X1000 (0.0-0.7); HEMATOCRIT 26.9 % (42.0-52.0); HEMOGLOBIN 8.6 g/dL (14.0-18.0); LYMPH# 1.04 X1000 (1.2-3.4); LYMPH% 17.7 % (20.5-51.1); MCH 27.7 PG (27-31); MCV 86.8 FL (81-99); MONO# 0.57 X1000 (0.11-0.59); MONO% 9.7 % (1.7-9.3); MPV 8.8 FL (7.4-10.4); NEUT# 4.11 X1000 (1.4-6.5); NEUT% 70.3 % (42.2-75.2); PLT 245 X1000 (130-400); RDW 15.6 % (11.5-14.5); WBC 5.86 X1000 (4.8-10.8)
[2019-11-30] MEDS: ATIVAN IV PRN ×2 (07:18→22:11)
[2019-11-30 07:35] LABS: AGAP 11; ALB/GLOB RATIO 0.7; ALBUMIN 2.2 g/dL (3.5-5.0); ALKALINE PHOSPHATASE 91 U/L (32-122); BUN 11 mg/dL (8-22); CALCIUM 7.7 mg/dL (8.8-10.2); CHLORIDE 98 mmol/L (98-107); COSMO 276; CREATININE 0.8 mg/dL (0.7-1.2); ESTIMATED GFR > 60; GLUCOSE 385 mg/dL (70-104); GOT 15 U/L (10-34); GPT 11 U/L (10-44); MAGNESIUM 1.7 mg/dL (1.5-2.7); SODIUM 130 mmol/L (136-145); TCO2 21 mmol/L (25-35); TOTAL BILIRUBIN 0.22 mg/dL (0.20-1.00); TOTAL PROTEIN 5.4 g/dL (6.3-8.3)
[2019-11-30 07:38] LABS: POTASSIUM 5.2 mmol/L (3.5-5.1)
[2019-11-30] MEDS: SUBOXONE 8 MG/2 MG FILM SL SCH ×2 (10:04→22:32)
--- NOTE | 2019-11-30 13:44 | Diag Imaging Result Doc PS360 ---
EXAM: GI SERIES WITH BA SWALLOW INDICATION: odynophagia TECHNIQUE: Oral barium contrast was administered and the bolus was followed under fluoroscopy. Spot images were obtained. COMPARISON: None. FINDINGS: The mucosa of the esophagus exhibits vague granularity or a reticular pattern that is more prominent distally. This can be seen with reflux esophagitis. Upon swallowing, there is very poor dilation of the mid and distal esophagus which remains fairly narrow throughout the swallowing over a long segment. Lam's esophagus should be considered. No focal masslike filling defect can be identified. There was a mild delay delay of barium passage through the gastroesophageal junction and into the stomach. Reflux was witnessed during the study. There are thickened mucosal folds seen at the greater curvature of the stomach suggesting gastritis. There is some mild barium pooling in the same region which could represent small ulcerations. Barium passes through the pylorus and into the small bowel. The visualized portion of the duodenal sweep is grossly unremarkable. IMPRESSION: 1.Slight granular appearing esophageal mucosa, which can often be associated with reflux esophagitis as well as poor dilation of a long segment of the mid and distal esophagus upon swallowing. Lam's esophagus should be considered. An EGD would probably be helpful. 2.Thickened gastric folds at the greater curvature of the stomach suggesting gastritis with possible small ulcerations in the same region. Electronically signed by Sedrick Neil 11/30/2019 1:42 PM
[2019-11-30] MEDS: LANTUS INSULIN SUBQ SCH (18:29)
[2019-11-30] MEDS: SODIUM CHLORIDE 0.9% INJ SCH (18:30)
--- NOTE | 2019-11-30 21:06 | GASTROENTEROLOGY CONSULTATION ---
DATE: 11/30/2019 REASON FOR CONSULTATION: Dysphagia, nausea, vomiting and uncontrolled diabetes, with recent DKA. HISTORY OF PRESENT ILLNESS: This is a 54-year-old male who reports problems with swallowing, getting choked and having episodes of vomiting after he eats. He also has a history of diabetes and DKA, and has uncontrolled diabetes. The patient does report some abdominal pain. He is sleepy during the time of my evaluation, and kept falling asleep so I was not fully able to get the review of systems. During his admission he has had some workup including gastric emptying study. Some of his symptoms seem consistent with possible gastroparesis, but his gastric emptying study was normal. He then had an upper GI barium swallow study this morning that showed slight granular-appearing esophageal mucosa, possibly related to reflux esophagitis. There was dilation of a long segment of the mid and distal esophagus upon swallowing. Lam esophagus should be considered, and also noted thickened gastric folds at the greater curvature of the stomach, suggesting gastritis with possible ulcers. The patient does report alcohol use. He has not been drinking as much as he had. He states he had 1 shot of whiskey about a week ago. He does have a history of IV drug use with amphetamines, reported last use a month ago. The patient reports abdominal pain and tenderness, and then dysphagia along with nausea and vomiting. PAST MEDICAL HISTORY: 1. Diabetes type 2, uncontrolled. 2. Hepatitis C. I am not sure of his treatment status. In 2013 he had a positive viral load. 3. Chronic kidney disease stage 2. PAST SURGICAL HISTORY: EGD reported. ALLERGIES: No known drug allergies. HOME MEDICATIONS: Suboxone twice daily, NovoLog 70/30 subcutaneous twice daily. SOCIAL HISTORY: Positive for tobacco use. History of alcohol use. He still drinks on occasion. Positive for marijuana use and IV drug use. He has 3 daughters. REVIEW OF SYSTEMS: Per history of present illness. PHYSICAL EXAMINATION: Vital signs: Temperature 98.4 degrees, pulse 104, respirations 16, blood pressure 160/86. Generally the patient was asleep at the time of my evaluation. He did wake up but he kept falling asleep during my review of systems, so I was not fully able to get full details of information.Respiratory: Lung sounds essentially clear. Cardiovascular: Regular rate and rhythm. Abdomen: Soft. Some mild tenderness with palpation. Extremities: No lower extremity edema noted. Neurologic: The patient did wake up and was alert, but he kept falling asleep during my visit. He states he did not sleep well last night. LABORATORY DATA: Hematology: WBC 5.86, hemoglobin 8.6, hematocrit 26.9, MCV 86.8, platelets 245,000. Chemistry: Sodium 130, potassium 5.2, chloride 98, CO2 is 21, BUN 11, creatinine 0.8, glucose 385. Calcium 7.7, magnesium 1.7. Total bilirubin 0.22, AST 15, ALT 11, alkaline phosphatase 91, lipase 77. DIAGNOSTIC DATA: Gastric emptying study and upper GI barium swallow results as dictated above. ASSESSMENT AND PLAN: 1. Dysphagia. 2. Nausea and vomiting. 3. Anemia. 4. Diabetes, uncontrolled. 5. History of hepatitis C. Unsure of treatment status. I will order HCV RNA while in the hospital. Due to his gastrointestinal complaints of dysphagia, nausea, vomiting and findings on upper gastrointestinal series, we will proceed with an esophagogastroduodenoscopy on . I have discussed the procedure along with benefits and risks with the patient, and he wishes to proceed. Further plans will be made according to findings. I have strongly encouraged smoking cessation, alcohol cessation and cessation of IV drug use. I have discussed this case with Dr. Joseph. Thank you for this consultation. Dictated by COURTNEY Hahn for Cristian Joseph MD cc: COURTNEY Campos MD [facility]
[2019-12-01] MEDS: NS 1,000 ML IV SCH ×2 (01:22→09:44)
[2019-12-01] MEDS: PROTONIX IV SCH (06:43)
[2019-12-01] MEDS: SODIUM CHLORIDE 0.9% INJ SCH (06:44)
[2019-12-01] MEDS ORDERED: D50W SYRINGE IV ONE (07:03)
[2019-12-01] MEDS: HUMULIN R SUBQ SCH ×4 (07:04→21:56)
[2019-12-01 07:40] LABS: BASO# 0.02 X1000 (0.0-0.2); BASO% 0.3 % (0.0-0.8); EOS# 0.31 X1000 (0.0-0.7); EOS% 4.1 % (0.0-10.0); HEMATOCRIT 26.7 % (42.0-52.0); HEMOGLOBIN 8.3 g/dL (14.0-18.0); IMM GRAN# 0.02 X1000 (0.0-0.04); IMM GRAN% 0.3 % (0.0-0.5); LYMPH# 1.43 X1000 (1.2-3.4); LYMPH% 18.9 % (20.5-51.1); MCH 26.9 PG (27-31); MCHC 31.1 g/dL (33-37); MCV 86.7 FL (81-99); MONO# 0.61 X1000 (0.11-0.59); MONO% 8.1 % (1.7-9.3); MPV 8.5 FL (7.4-10.4); NEUT# 5.16 X1000 (1.4-6.5); NEUT% 68.3 % (42.2-75.2); PLT 263 X1000 (130-400); RBC 3.08 XMIL (4.7-6.1); RDW 15.6 % (11.5-14.5); WBC 7.55 X1000 (4.8-10.8)
[2019-12-01 07:42] LABS: AGAP 7; ALB/GLOB RATIO 0.7; ALBUMIN 2.2 g/dL (3.5-5.0); ALKALINE PHOSPHATASE 84 U/L (32-122); BUN 6 mg/dL (8-22); CALCIUM 8.1 mg/dL (8.8-10.2); CHLORIDE 101 mmol/L (98-107); COSMO 265; CREATININE 0.7 mg/dL (0.7-1.2); ESTIMATED GFR > 60; GLUCOSE 48 mg/dL (70-104); GOT 12 U/L (10-34); GPT 10 U/L (10-44); MAGNESIUM 1.7 mg/dL (1.5-2.7); POTASSIUM 3.7 mmol/L (3.5-5.1); SODIUM 135 mmol/L (136-145); TCO2 27 mmol/L (25-35); TOTAL BILIRUBIN 0.21 mg/dL (0.20-1.00); TOTAL PROTEIN 5.3 g/dL (6.3-8.3)
[2019-12-01] MEDS: LANTUS INSULIN SUBQ SCH (09:31)
[2019-12-01] MEDS: ATIVAN IV PRN ×2 (09:42→22:10)
[2019-12-01] MEDS ORDERED: SUBOXONE 8 MG/2 MG SL ONE (09:45)
[2019-12-01] MEDS ORDERED: XYLOCAINE-MPF 2% ONE (12:21)
[2019-12-01] MEDS ORDERED: DIPRIVAN 1% ONE ×2 (12:21→13:11)
--- NOTE | 2019-12-01 13:36 | ENDOSCOPY OPERATIVE NOTE ---
[facility] ENDOSCOPY OPERATIVE NOTE , EGD PROCEDURE REPORT PATIENT: Alen Wallace ADMISSION DATE: 12/01/2019 MR#: [id number] : 1965 PROCEDURE DATE: 12/01/2019 SURGEON: Cristian Joseph MD STATUS: inpatient RESIDENT DOCTOR: Gia Tucker and Jean Fernandez PREOPERATIVE DIAGNOSIS: The patient is a 54 yr old male here for an EGD due to dysphagia, pharyngeal -esophageal . PROCEDURE PERFORMED: EGD w/ dilation of esophagus via guidewire EGD w/ biopsy MEDICATIONS: Per Anesthesia TOPICAL ANESTHETIC: none CONSENT: The patient understands the risks and benefits of the procedure and understands that these r isks include, but are not limited to: sedation, allergic reaction, infection, perforation and/or bleeding. Alternative means of evaluation and treatment include, among others: physical exam, x-rays, and/or surgical intervention. The patient elects to proceed with this endoscopic procedure. HISORY AND PHYSICAL: 12/01/2019 DESCRIPTION OF PROCEDURE: During intra-op preparation period all mechanical and medical equipment was checked for proper function. Hand hygiene and appropriate measures for infection prevention was taken. After the risks, benefits and alternatives of the procedure were thoroughly explained, Informed consent was verified, confirmed and timeout was successfully executed by the treatment team. The patient was anesthetized with topical anesthesia and the CA21-m04 ([id number]) endoscope was introduced through the mouth and advanced to the second portion of the duoden um. Retroflexion was performed in the stomach and revealed no abnormalities. The gastroscope was then slowly withdraw n and removed. ESOPHAGUS: There was a long fibrotic, ulcerated, peptic and severe stricture in the distal esophagus. The stricture was not traversable. The stricture was dilated using a 11mm (33Fr) savary dilator over guidewire. Follo wing this dilation, there was a medium sized mucosal rent. Dilation was performed under fluoroscopy. Severe reflux esophagitis was found in the entire esophagus. Esophagitis was LA Class D: Mucosal breaks involving more than 75 % of esophageal circumference. Multiple biopsies were performed using cold forceps. Sample sent for histology. STOMACH: The mucosa of the stomach appeared normal. DUODENUM: A single non-bleeding, round, deep and clean-based ulcer measuring 12 x 15mm in size was fo und in the duodenal bulb. Biopsies were taken at edge of the ulcer. Mild duodenal inflammation was found in the 2nd pa rt of the duodenum. A medium sized diverticulum was found in the 2nd part of the duodenum. SPECIMENS REMOVED: No ADVERSE EVENTS: There were no complications. POSTOPERATIVE DIAGNOSIS: 1. There was a long stricture in the distal esophagus; The stricture wa s dilated using a 11mm (33Fr) savary dilator over guidewire.; Following this dilation, there was a medium sized mucosal rent 2. Reflux esophagitis in the entire esophagus; multiple biopsies were performed 3. The mucosa of the stomach appeared normal 4. Single ulcer measuring 12 x 15mm in size was found in the duodenal bulb; biopsies were taken 5. Duodenal inflammation was found in the 2nd part of the duodenum RECOMMENDATIONS: 1. Start taking the following medications as prescribed: Carafate. 2. Start Proton pump inhibitor twice daily - 30 minutes before a meal 3. Follow-up biopsy results in 2 weeks 4. Start Full liquid diet for 1 Week(s) 5. Return to floor when standard parameters are met REPEAT EXAM: Cristian Joseph MD eSigned: Cristian Joseph MD 12/01/2019 1:35 PM cc: Alvarez Parrish MD PATIENT NAME: Alen Wallace MR#: [id number]
[2019-12-01] MEDS: CARAFATE LIQUID PO SCH ×2 (13:57→20:08)
[2019-12-01] MEDS ORDERED: NS 1,000 ML IV SCH (17:29)
[2019-12-01] MEDS ORDERED: LABETALOL IV ONE (18:22)
[2019-12-01] MEDS ORDERED: OFIRMEV 1000 MG/ISOTONIC SOLN 1,000 MG/100 ML BOTTLE IV ONE (18:24)
--- NOTE | 2019-12-01 18:51 | Diag Imaging Result Doc PS360 ---
EXAM: CHEST-PORTABLE - 12/01/2019 HISTORY: tachycardia TECHNIQUE: Portable chest COMPARISON: 11/28/2019 FINDINGS: Heart size appears within normal limits. There has been development of ill-defined infiltrates at bilateral lung bases. There is no substantial pleural effusion or pneumothorax identified. IMPRESSION: Ill-defined infiltrates at bilateral lung bases. Electronically signed by Shawn Lopez 12/01/2019 6:48 PM
[2019-12-01 18:52] LABS: URINE SOURCE CLEAN CATCH
[2019-12-01 18:55] LABS: BILIRUBIN URINE NEGATIVE (NEGATIVE); BLOOD URINE NEGATIVE (NEGATIVE); COLOR STRAW; GLUCOSE URINE 70 mg/dL (NEGATIVE); KETONE URINE NEGATIVE (NEGATIVE); LEUKOCYTES URINE NEGATIVE (NEGATIVE); NITRITE URINE NEGATIVE (NEGATIVE); PH URINE 6.5; PROTEIN URINE 30 mg/dL (NEGATIVE); TURBIDITY URINE CLEAR (CLEAR); UROBILINOGEN URINE NORMAL (NORMAL)
[2019-12-01 18:56] LABS: UR EPITHELIAL CELLS <10 /HPF (<10); URINE BACTERIA NEGATIVE /HPF; URINE RBC <10 /HPF (<10); URINE WBC <10 /HPF (<10)
[2019-12-01 19:59] LABS: BASO# 0.02 X1000 (0.0-0.2); BASO% 0.3 % (0.0-0.8); EOS# 0.15 X1000 (0.0-0.7); EOS% 1.9 % (0.0-10.0); HEMOGLOBIN 8.6 g/dL (14.0-18.0); LYMPH% 7.8 % (20.5-51.1); MCH 27.3 PG (27-31); MCHC 31.9 g/dL (33-37); MCV 85.7 FL (81-99); MONO% 6.5 % (1.7-9.3); MPV 8.8 FL (7.4-10.4); NEUT# 6.47 X1000 (1.4-6.5); NEUT% 83.5 % (42.2-75.2); PLT 233 X1000 (130-400); RBC 3.15 XMIL (4.7-6.1); RDW 14.9 % (11.5-14.5); WBC 7.74 X1000 (4.8-10.8)
[2019-12-01] MEDS: ZOSYN 3.375 GM in NS 50 ML IV SCH (20:06)
[2019-12-01] MEDS ORDERED: NS 1,000 ML IV ONE (21:36)
[2019-12-01] MEDS: SUBOXONE 8 MG/2 MG SL SCH (21:55)
[2019-12-01] MEDS: PRILOSEC PO SCH (21:56)
[2019-12-02] MEDS: CARAFATE LIQUID PO SCH ×4 (01:16→19:44)
[2019-12-02] MEDS: ZOSYN 3.375 GM in NS 50 ML IV SCH ×4 (01:16→17:59)
[2019-12-02] MEDS: HUMULIN R SUBQ SCH ×4 (06:31→20:31)
[2019-12-02] MEDS: PRILOSEC PO SCH ×3 (06:31→21:35)
--- NOTE | 2019-12-02 07:04 | EKG Report ---
Test Performed on : 12/01/2019 6:23:31 PM Test Reason : TACHYCARDIC Blood Pressure : / mmHG Vent. Rate : 136 BPM Atrial Rate : 136 BPM P-R Int : 124 ms QRS Dur : 068 ms QT Int : 278 ms P-R-T Axes : 057 039 050 degrees QTc Int : 418 ms Sinus tachycardia. Nonspecific ST and T wave abnormality Abnormal ECG When compared with ECG of 28-NOV-2019 13:43, (Unconfirmed) ST no longer elevated in Lateral leads Nonspecific T wave abnormality now evident in Lateral leads Confirmed by Bishnu HECK, Festus Wright ([id number]) on 12/04/2019 9:22:28 AM
[2019-12-02 07:07] LABS: BASO# 0.01 X1000 (0.0-0.2); BASO% 0.1 % (0.0-0.8); EOS# 0.15 X1000 (0.0-0.7); EOS% 1.6 % (0.0-10.0); HEMATOCRIT 27.3 % (42.0-52.0); HEMOGLOBIN 8.5 g/dL (14.0-18.0); IMM GRAN# 0.02 X1000 (0.0-0.04); IMM GRAN% 0.2 % (0.0-0.5); LYMPH# 1.09 X1000 (1.2-3.4); LYMPH% 11.6 % (20.5-51.1); MCH 26.9 PG (27-31); MCHC 31.1 g/dL (33-37); MCV 86.4 FL (81-99); MONO# 0.57 X1000 (0.11-0.59); MONO% 6.1 % (1.7-9.3); NEUT# 7.58 X1000 (1.4-6.5); NEUT% 80.4 % (42.2-75.2); PLT 227 X1000 (130-400); RBC 3.16 XMIL (4.7-6.1); WBC 9.42 X1000 (4.8-10.8)
[2019-12-02] MEDS: ATIVAN IV PRN ×3 (07:55→19:46)
[2019-12-02] MEDS: SUBOXONE 8 MG/2 MG SL SCH ×3 (08:24→21:35)
[2019-12-02] MEDS: LANTUS INSULIN SUBQ SCH (08:25)
[2019-12-02 08:49] LABS: AGAP 11; ALB/GLOB RATIO 0.9; ALBUMIN 2.3 g/dL (3.5-5.0); ALKALINE PHOSPHATASE 89 U/L (32-122); BUN 7 mg/dL (8-22); CALCIUM 7.6 mg/dL (8.8-10.2); CHLORIDE 101 mmol/L (98-107); COSMO 274; CREATININE 0.9 mg/dL (0.7-1.2); ESTIMATED GFR > 60; GLUCOSE 276 mg/dL (70-104); GOT 13 U/L (10-34); GPT 9 U/L (10-44); MAGNESIUM 1.7 mg/dL (1.5-2.7); SODIUM 133 mmol/L (136-145); TCO2 21 mmol/L (25-35); TOTAL BILIRUBIN 0.29 mg/dL (0.20-1.00)
[2019-12-02 08:50] LABS: POTASSIUM 5.2 mmol/L (3.5-5.1)
--- NOTE | 2019-12-02 14:22 | PROGRESS NOTE ---
DATE: 12/02/2019 SUBJECTIVE: The patient has no major complaints. OBJECTIVE: Vital Signs: Blood pressure 156/82, heart rate 94, respiratory rate 20, temperature afebrile since last night Cardiovascular: Regular rate and rhythm. Pulmonary: Bilateral breath sounds clear to auscultation. GI: Soft, nontender, nondistended. Bowel sounds are positive. LABORATORY DATA: White count 9, hemoglobin and hematocrit 8 and 27, platelets 227,000, platelets normal. Blood sugar is 323, potassium 5.2, sodium 133. PROBLEM LIST: 1. Esophageal stricture. He has had dilation. Continue proton pump inhibitor. Appreciate Gastroenterology input. He will be on full liquids for a week. 2. Type 2 diabetes. We will adjust his insulin. 3. New onset fever, really unclear etiology. We started Zosyn empirically for pneumonia, but his blood cultures and urine, all of that is negative. He just kind of had a transient fever. It is possible it was just related to the surgery or atelectasis. We will continue to monitor. Decide about antibiotics at discharge, but I anticipate discharge tomorrow if he is afebrile. cc: Felix Parrish MD [facility]
--- NOTE | 2019-12-02 17:41 | Diag Imaging Result Doc PS360 ---
EXAM: CT THORAX W/CONTRAST - 12/02/2019 HISTORY: pneumonia TECHNIQUE: CT thorax with intravenous contrast COMPARISON: 12/01/2019 chest radiograph FINDINGS: There are mild emphysematous changes. There is a right midlung calcified granuloma from old granulomatous disease. There are ill-defined infiltrates which are most prominent at the right middle lobe, perihilar left upper lobe, and bilateral inferior lower lobes. There are small bilateral pleural effusions. There is no evidence of pneumothorax. There are small to borderline mediastinal lymph nodes. Although this does not represent a dedicated CT angiographic pulmonary arteries, there are apparent filling defects into pulmonary branches at the right lower lobe. There are no other pulmonary artery filling defects identified. There maria of the esophagus appear diffusely thickened, particularly at the mid and distal esophagus. This is suspicious for esophagitis. IMPRESSION: Mild emphysematous changes. Ill-defined bilateral infiltrates which are suspicious for pneumonia or atypical infection/inflammation. Small bilateral pleural effusions. Two apparent small pulmonary emboli at right lower lobe pulmonary artery branches. Diffuse thickening of maria of the esophagus, particularly at the mid and distal esophagus. This is suspicious for esophagitis. This exam was performed using automated exposure control, adjustment of mA or kV according to patient size, and/or use of iterative reconstruction technique. Electronically signed by Shawn Lopez 12/02/2019 5:39 PM
[2019-12-02] MEDS ORDERED: HEPARIN 25,000 UNIT in NS 250 ML IV SCH ×2 (18:00→23:29)
--- NOTE | 2019-12-02 18:23 | GASTROENTEROLOGY PROGRESS NOTE ---
DATE: 12/02/2019 SUBJECTIVE: Patient was awake and alert. He is feeling better. He has tolerated a full liquid diet. He had an EGD on 12/01/2019 for dysphagia. Findings showed a long fibrotic ulcerated peptic and severe stricture in the distal esophagus. Stricture was dilated. Also noted severe esophagitis in the entire esophagus, normal stomach. A single nonbleeding deep clean based ulcer measuring 12 x 15 mm in the duodenal bulb was noted. Biopsies were taken. Inflammation was noted and a medium sized diverticulum in the second portion of the duodenum was noted. Pathology is pending. OBJECTIVE: Vital Signs: Temperature 98 degrees, pulse 94, respirations 20, blood pressure 156/82. General: Patient was awake and alert in no acute distress. LABORATORY: Hematology WBC 9.42, hemoglobin 8.5, hematocrit 27.3, MCV 86.4. Chemistry: Sodium 133, potassium 5.2, chloride 101, CO2 21, BUN 7, creatinine 0.9, glucose 276. ASSESSMENT AND PLAN: 1. Dysphagia. 2. Esophageal stricture and duodenal ulcer. Continue PPI twice daily and Carafate. Awaiting biopsy results. History of hepatitis C waiting on hepatitis C quantitative results. 1. Diabetes type 2, uncontrolled. Patient is currently on medication. He states during his last hospitalization he was sent home with a NovoLog pen instead of injection and he does not know how to use the pen. I have asked the nurse to help with training. PLAN: Continue PPI and Carafate. Awaiting biopsy results and waiting on HCV quantitative result. Recommend patient follow up with us as an outpatient. Will continue to follow during this hospital course and further plans to be made as needed. I have discussed this case with Dr. Joseph. Dictated by COURTNEY Hahn for Cristian Joseph MD cc: COURTNEY Campos MD
[2019-12-02] MEDS: SUBOXONE 2 MG/0.5 MG SL SCH (20:04)
[2019-12-02 21:37] LABS: INR 1.06; PROTIME 13.9 Seconds (11.0-16.0)
[2019-12-02 21:48] LABS: PTT HEPARIN PROTOCOL 25.7 Seconds
[2019-12-02] MEDS ORDERED: HEPARIN IV ONE (22:53)
[2019-12-02] MEDS ORDERED: HEPARIN 25,000 UNITS/D5W 25,000 UNIT/250 ML IV.SOLN IV SCH (23:15)
[2019-12-03] MEDS ORDERED: HEPARIN 25,000 UNITS/1/2NS 25,000 UNIT/250 ML IV.SOLN IV SCH (02:15)
[2019-12-03] MEDS: CARAFATE LIQUID PO SCH ×4 (02:34→21:20)
[2019-12-03] MEDS: ZOSYN 3.375 GM in NS 50 ML IV SCH ×4 (03:28→17:58)
[2019-12-03] MEDS ORDERED: HEPARIN 25,000 UNIT in NS 250 ML IV SCH (05:30)
[2019-12-03] MEDS: PRILOSEC PO SCH ×2 (06:34→21:20)
[2019-12-03] MEDS: HUMULIN R SUBQ SCH ×4 (06:35→21:21)
[2019-12-03] MEDS: HEPARIN 25,000 UNITS/1/2NS 25,000 UNIT/250 ML IV.SOLN IV SCH (06:49)
[2019-12-03 07:20] LABS: BASO# 0.01 X1000 (0.0-0.2); BASO% 0.2 % (0.0-0.8); EOS# 0.42 X1000 (0.0-0.7); EOS% 7.1 % (0.0-10.0); HEMATOCRIT 28.7 % (42.0-52.0); HEMOGLOBIN 9.1 g/dL (14.0-18.0); LYMPH% 18.7 % (20.5-51.1); MCHC 31.7 g/dL (33-37); MCV 85.2 FL (81-99); MONO# 0.44 X1000 (0.11-0.59); MONO% 7.5 % (1.7-9.3); NEUT# 3.91 X1000 (1.4-6.5); NEUT% 66.5 % (42.2-75.2); PLT 244 X1000 (130-400); RBC 3.37 XMIL (4.7-6.1); RDW 14.8 % (11.5-14.5); WBC 5.88 X1000 (4.8-10.8)
[2019-12-03 08:26] LABS: AGAP 9; ALB/GLOB RATIO 0.7; ALBUMIN 2.5 g/dL (3.5-5.0); ALKALINE PHOSPHATASE 100 U/L (32-122); BUN 4 mg/dL (8-22); CALCIUM 8.1 mg/dL (8.8-10.2); CHLORIDE 99 mmol/L (98-107); COSMO 264; CREATININE 0.8 mg/dL (0.7-1.2); ESTIMATED GFR > 60; GLUCOSE 103 mg/dL (70-104); GOT 15 U/L (10-34); GPT 10 U/L (10-44); MAGNESIUM 1.6 mg/dL (1.5-2.7); POTASSIUM 4.1 mmol/L (3.5-5.1); SODIUM 133 mmol/L (136-145); TCO2 25 mmol/L (25-35); TOTAL BILIRUBIN 0.21 mg/dL (0.20-1.00); TOTAL PROTEIN 6.1 g/dL (6.3-8.3)
[2019-12-03] MEDS: LANTUS INSULIN SUBQ SCH (08:49)
[2019-12-03] MEDS: SUBOXONE 2 MG/0.5 MG SL SCH (08:49)
[2019-12-03] MEDS: ATIVAN IV PRN ×3 (08:49→21:28)
[2019-12-03] MEDS: HEPARIN IV PRN ×2 (09:23→16:00)
[2019-12-03] MEDS ORDERED: HALDOL IM ONE (12:00)
[2019-12-03] MEDS ORDERED: NS 250 ML ONE (13:16)
[2019-12-03] MEDS ORDERED: NICODERM PATCH TD PRN (14:43)
[2019-12-03] MEDS ORDERED: ZYPREXA ZYDIS PO PRN (14:43)
[2019-12-03] MEDS ORDERED: ZYPREXA ZYDIS PO ONE (14:43)
[2019-12-03 14:55] LABS: UR AMPHETAMINES QUAL NONE DETECTED (NONE DETECT); UR BARBITUATES QUAL NONE DETECTED (NONE DETECT); UR BENZODIAZEPIN QUAL NONE DETECTED (NONE DETECT); UR CANNABINOIDS QUAL NONE DETECTED (NONE DETECT); UR COCAINE QUAL NONE DETECTED (NONE DETECT); UR METHADONE QUAL NONE DETECTED (NONE DETECT); UR OPIATES QUAL NONE DETECTED (NONE DETECT); UR OXYCODONE QUAL NONE DETECTED (NONE DETECT); UR PCP QUAL NONE DETECTED (NONE DETECT)
[2019-12-03 15:28] LABS: ALLEN TEST NO; BE 1.1 mmoll (-3.0-3.0); BLOOD TYPE ARTERIAL; HCO3-(ACT) 25.8 mmoll (20.0-26.0); METHB 1.2 % (0.0-1.5); MODALITY ROOM AIR; O2(CT) 13.1 mL/dL (15.0-23.0); PCO2(98.6) 36 mmHg (35-45); PO2(98.6) 81 mmHg (60-100); SAMPLE BLOOD; SAO2 98.2 % (95.0-100.0); THB 9.7 g/dL (11.5-17.4); pH(98.6) 7.45 (7.35-7.45)
--- NOTE | 2019-12-03 15:29 | PROGRESS NOTE ---
DATE: 12/03/2019 SUBJECTIVE: The patient has no major complaints. He is very altered today, much more than usual. He is very confused. He has tried Aleve numerous times. He has taken his IV out. He really wants to dip or smoke a cigarette and does not want a NicoDerm patch, but he is confused. He is asking to go to the store, but I think he is asking because he truly wants tobacco, but does not realize that there is a major issue with him at this point. OBJECTIVE: Blood pressure is 151/71, heart rate 113, respiratory rate 12, temperature 98.1 degrees.Cardiovascular: Regular rate and rhythm. Pulmonary: Bilateral breath sounds clear to auscultation. GI: Soft, nontender, nondistended. Bowel sounds are positive. LABORATORY DATA: 5.8, hemoglobin and hematocrit 9 and 28, platelets 244,000. Sodium 133, glucose 403, albumin 2.5. PROBLEM LIST: 1. Esophageal stricture status post dilation. He is still on clear liquids, PPI, and we will continue to follow. 2. Type 2 diabetes relatively under control, although his glucose is starting to trend upwards again but I think he has been refusing some of his medications. 3. Small PEs that have appeared suddenly. I am still waiting on his venous Dopplers. He is on anticoagulation for the time being. I am not sure if this is something that has developed, although he had an acute event a couple days ago so it is certainly possible. We have not been able to anticoagulate him because of the concern over GI bleed initially and then the subsequent dilation, which is still tenuous, but we will anticoagulate him and Lovenox may be an option. I have used heparin just in case there is any bleeding associated with it. 4. Encephalopathy, unclear source. He does have a history of drug use. I did decrease his Suboxone yesterday. It is possible he may be hallucinating from that. We will check an ammonia level, head CT, and follow closely. He is not ready for discharge at this point. cc: Felix Parrish MD
--- NOTE | 2019-12-03 16:15 | Diag Imaging Result Doc PS360 ---
EXAM: CT HEAD W/O CONTRAST INDICATION: encephalopathy TECHNIQUE: This exam was performed using automated exposure control, adjustment of mA or kV according to patient size, and/or use of iterative reconstruction technique. COMPARISON: None. FINDINGS: There is no definite acute infarct given the limited sensitivity of CT versus MRI. There is no discrete intracranial mass, mass effect, or intracranial hemorrhage. There is mild left maxillary sinus mucosal disease. Surrounding soft tissues and bony structures are essentially unremarkable, otherwise. IMPRESSION: No evidence of acute intracranial pathology. Electronically signed by Sedrick Neil 12/03/2019 4:12 PM
[2019-12-03] MEDS ORDERED: HALDOL IV PRN (16:47)
[2019-12-03] MEDS: SUBOXONE 8 MG/2 MG FILM SL SCH (21:21)
[2019-12-04] MEDS: CARAFATE LIQUID PO SCH ×4 (01:03→19:34)
[2019-12-04] MEDS: ZOSYN 3.375 GM in NS 50 ML IV SCH ×5 (01:04→23:32)
[2019-12-04] MEDS: HUMULIN R SUBQ SCH ×4 (06:16→21:31)
[2019-12-04] MEDS: PRILOSEC PO SCH ×2 (06:17→21:35)
[2019-12-04 06:37] LABS: BASO# 0.01 X1000 (0.0-0.2); BASO% 0.1 % (0.0-0.8); EOS# 0.28 X1000 (0.0-0.7); EOS% 3.5 % (0.0-10.0); HEMATOCRIT 29.6 % (42.0-52.0); HEMOGLOBIN 9.4 g/dL (14.0-18.0); LYMPH# 0.92 X1000 (1.2-3.4); LYMPH% 11.5 % (20.5-51.1); MCH 26.6 PG (27-31); MCHC 31.8 g/dL (33-37); MCV 83.6 FL (81-99); MONO# 0.55 X1000 (0.11-0.59); MONO% 6.8 % (1.7-9.3); MPV 8.7 FL (7.4-10.4); NEUT# 6.27 X1000 (1.4-6.5); NEUT% 78.1 % (42.2-75.2); PLT 287 X1000 (130-400); RBC 3.54 XMIL (4.7-6.1); WBC 8.03 X1000 (4.8-10.8)
[2019-12-04 07:06] LABS: AGAP 10; ALB/GLOB RATIO 0.6; ALBUMIN 2.4 g/dL (3.5-5.0); ALKALINE PHOSPHATASE 109 U/L (32-122); BUN 4 mg/dL (8-22); CALCIUM 8.6 mg/dL (8.8-10.2); CHLORIDE 100 mmol/L (98-107); COSMO 268; CREATININE 0.9 mg/dL (0.7-1.2); ESTIMATED GFR > 60; GLUCOSE 125 mg/dL (70-104); GOT 17 U/L (10-34); GPT 10 U/L (10-44); MAGNESIUM 1.8 mg/dL (1.5-2.7); POTASSIUM 4.5 mmol/L (3.5-5.1); SODIUM 135 mmol/L (136-145); TCO2 25 mmol/L (25-35); TOTAL BILIRUBIN 0.25 mg/dL (0.20-1.00); TOTAL PROTEIN 6.2 g/dL (6.3-8.3)
[2019-12-04] MEDS: SUBOXONE 8 MG/2 MG FILM SL SCH ×2 (08:07→21:35)
[2019-12-04] MEDS: LANTUS INSULIN SUBQ SCH (08:09)
[2019-12-04] MEDS: HEPARIN 25,000 UNITS/1/2NS 25,000 UNIT/250 ML IV.SOLN IV SCH (11:38)
--- NOTE | 2019-12-04 14:22 | GASTROENTEROLOGY PROGRESS NOTE ---
DATE: 12/04/2019 SUBJECTIVE: At the time of my visit the patient was awake and alert. He was having a venous Doppler study done at the time of my visit. Patient states he has tolerated a full liquid diet. Per nurse report, he has had some confusion and irritation over the last several days. His ammonia level was normal. OBJECTIVE: Vital Signs: Temperature 100.1 degrees, pulse 109, respirations 17, blood pressure 160/78. LABORATORY: Hematology. WBC 8.03, hemoglobin 9.4, hematocrit 29.6, MCV 83.6. Chemistry. Sodium 135, potassium 4.5, chloride 100, CO2 25, BUN 4, creatinine 0.9, glucose 125. ASSESSMENT AND PLAN: 1. Esophageal stricture status post dilation. Biopsies are pending. Continue PPI and continue Carafate. Continue full liquid diet for now. Have added some mashed potatoes to be sent with his lunch tray. We will see how he does with that and possibly advance his diet later. 2. Apparent small pulmonary embolus. The patient has just had Doppler studies. Per tech report there was no evidence of lower extremity blood clots. 3. Confusion/encephalopathy. Patient has history of drug use. Patient has had workup including CT scan of the head. His ammonia level was actually low. 4. Continue to follow. We will slowly advance his diet. Allow mashed potatoes today with his lunch and see how he does. Further plans to be made as needed. I have discussed this case with Dr. Joseph. Dictated by COURTNEY Hahn for Cristian Joseph MD cc: COURTNEY Campos MD
--- NOTE | 2019-12-04 16:11 | PROGRESS NOTE ---
DATE: 12/04/2019 SUBJECTIVE: Patient has no major complaints. OBJECTIVE: Blood pressure is 120/66, heart rate 92, respiratory 17, temperature 97.2 degrees, 98% on room air. He had a temperature of 100.1 degrees.Cardiovascular: Regular rate and rhythm. Pulmonary: Bilateral breath sounds clear to auscultation. GI: Soft, nontender, nondistended. Bowel sounds were positive. LABORATORY DATA: White count is 8, hemoglobin and hematocrit 9, 29, platelets 287,000. PTT therapeutic. Basic was normal. UDS was normal. Hepatitis C RNA is positive. Head CT was negative. Ammonia level was low. PROBLEM LIST: 1. Esophageal stricture status post dilation. He is still on clears, PPI. Will continue to monitor closely. 2. Type 2 diabetes. He is stable currently. Sugars have been doing okay. 3. Small pulmonary embolisms. I am not sure how clinically relevant they are. He did have this acute episode of tachycardia and fever and hypertension. His venous Dopplers are negative. I am going to get a V/Q scan kind of get a sense if these are symptomatic ones, he is on heparin, I will switch him to Lovenox and will see how he does. 4. Encephalopathy in the setting of drug use. I am not sure if it is related to the medications he is getting versus something else very difficult but today he is much less confused but he is much more somnolent so I am going to try to lighten up a little bit. The Suboxone is something he has been taking previously so this should not be a new medication but I cannot tell if it is something he has been on before. 5. Fever, possible pneumonia. Will repeat his chest x-ray tomorrow and follow, anticipate discharge soon. His initial issues were hyperglycemia and esophageal stricture and those seem to have resolved. cc: Felix Parrish MD
[2019-12-04] MEDS: ZYPREXA ZYDIS PO SCH (21:35)
[2019-12-04] MEDS: LOVENOX SUBQ SCH (21:35)
[2019-12-05] MEDS: CARAFATE LIQUID PO SCH ×4 (02:54→21:02)
[2019-12-05] MEDS: PRILOSEC PO SCH ×2 (06:06→21:01)
[2019-12-05] MEDS: ZOSYN 3.375 GM in NS 50 ML IV SCH ×3 (06:06→17:39)
[2019-12-05] MEDS: HUMULIN R SUBQ SCH ×4 (06:46→22:30)
[2019-12-05 07:18] LABS: BASO# 0.01 X1000 (0.0-0.2); BASO% 0.3 % (0.0-0.8); EOS% 5.9 % (0.0-10.0); HEMATOCRIT 29.7 % (42.0-52.0); HEMOGLOBIN 9.2 g/dL (14.0-18.0); LYMPH# 1.07 X1000 (1.2-3.4); LYMPH% 31.7 % (20.5-51.1); MCH 26.2 PG (27-31); MCV 84.6 FL (81-99); MONO# 0.16 X1000 (0.11-0.59); MONO% 4.7 % (1.7-9.3); NEUT# 1.94 X1000 (1.4-6.5); NEUT% 57.4 % (42.2-75.2); PLT 249 X1000 (130-400); RBC 3.51 XMIL (4.7-6.1); RDW 15.5 % (11.5-14.5); WBC 3.38 X1000 (4.8-10.8)
[2019-12-05 07:49] LABS: AGAP 12; ALB/GLOB RATIO 0.5; ALKALINE PHOSPHATASE 101 U/L (32-122); BUN 4 mg/dL (8-22); CALCIUM 8.5 mg/dL (8.8-10.2); CHLORIDE 103 mmol/L (98-107); COSMO 276; ESTIMATED GFR > 60; GLUCOSE 96 mg/dL (70-104); GOT 12 U/L (10-34); GPT 9 U/L (10-44); MAGNESIUM 1.8 mg/dL (1.5-2.7); POTASSIUM 4.3 mmol/L (3.5-5.1); SODIUM 140 mmol/L (136-145); TCO2 25 mmol/L (25-35); TOTAL BILIRUBIN 0.18 mg/dL (0.20-1.00); TOTAL PROTEIN 5.7 g/dL (6.3-8.3)
--- NOTE | 2019-12-05 07:52 | Diag Imaging Result Doc PS360 ---
EXAM: CHEST-2 VIEWS 12/05/2019 HISTORY: hypoxia TECHNIQUE: PA and lateral chest COMMENT: Compared to 12/01/2019 there has been near complete resolution of the bibasilar alveolar opacities present previously. The heart size and primary vascularity are within normal limits. There is a PICC line on the left with its tip just above the right atrium. IMPRESSION: Improved pulmonary edema and/or pneumonia. Electronically signed by Anil Gilliam 12/05/2019 7:50 AM
--- NOTE | 2019-12-05 08:47 | Diag Imaging Result Doc PS360 ---
EXAM: LUNG SCAN / VQ HISTORY: hypoxia TECHNIQUE: Nuclear medicine ventilation/perfusion lung scan COMPARISON: Chest X-ray taken earlier in the morning FINDINGS: 14.5 mCi DTPA used for the ventilation images. 6.1 mCi MAA given intravenously for the perfusion images. Ventilation perfusion images obtained in multiple projections. There are faint matching ventilation and perfusion defects. No large wedged shaped perfusion defects. No ventilation perfusion mismatches. IMPRESSION: Low probability for pulmonary embolus. Electronically signed by Antonio Acevedo 12/05/2019 8:45 AM
[2019-12-05] MEDS: LANTUS INSULIN SUBQ SCH (09:27)
[2019-12-05] MEDS: LOVENOX SUBQ SCH ×2 (09:28→21:01)
[2019-12-05] MEDS: SUBOXONE 8 MG/2 MG FILM SL SCH ×2 (09:28→21:01)
--- NOTE | 2019-12-05 14:08 | PROGRESS NOTE ---
DATE: 12/05/2019 SUBJECTIVE: The patient has no major complaints. He seems much better today, not confused and not sedated. We will continue to monitor in any case. OBJECTIVE: Vital Signs: Blood pressure 160/76, heart rate of 117, respiratory rate of 14, temperature 99.1 degrees, saturating 97% on room air. I do not think he has had any more fever. He had 100.1 yesterday morning, but since then none. Cardiovascular: Regular rate and rhythm. Pulmonary: He has got some rales at the bases. GI: Soft, nontender, nondistended. Bowel sounds are positive. IMAGING AND LABORATORY DATA: White count is 3, hemoglobin and hematocrit 9 and 29, platelets 249,000. Glucose up to 342. His V/Q scan did not show any perfusion defects. PROBLEM LIST: 1. Esophageal stricture, status post dilation. We will continue proton pump inhibitor. He is on clears. Advance to gastrointestinal soft diet per Gastroenterology. 2. Type 2 diabetes, overall stable currently. 3. Very small pulmonary embolisms, almost a coincidental finding. V/Q is negative. I am really not sure, I guess we are obligated to treat, but will get a Pulmonary opinion to see what they think about treating this for a shorter course, and we will follow closely, but I anticipate we should be able to get discharged soon. Anticoagulation will be difficult because he is uninsured, but [facility]. Will start Coumadin, and monitor. 4. Active hepatitis C. He has chronic active hepatitis C. He will need treatment once he stabilizes and gets out of here. I think he is stable enough for the floor at this point. cc: Felix Parrish MD
--- NOTE | 2019-12-05 14:14 | GASTROENTEROLOGY PROGRESS NOTE ---
DATE: 12/05/2019 SUBJECTIVE: The patient still reports some trouble swallowing. He is wanting to try solid foods. At the time of my visit, I noticed that the patient was using oral tobacco. I recommended he stop that. Patient did spit the oral tobacco out while I was in the room. OBJECTIVE: Vital Signs: Temperature 99.1 degrees, pulse 117, respirations 14, blood pressure 168/76. General: Patient is awake and alert. He is sitting up on the side of the bed. He is in no acute distress. LABORATORY: Hematology: WBC 3.38, hemoglobin 9.2, hematocrit 29.7, MCV 84.6, platelet 249,000. Chemistry: Sodium 140, potassium 4.3, chloride 103, CO2 25, BUN 4, creatinine 1.0, glucose 96. ASSESSMENT AND PLAN: 1. Dysphagia with esophagogastroduodenoscopy showing esophageal stricture with dilation performed and findings of duodenal ulcer. Continue proton pump inhibitors. 2. Oral tobacco use. The patient was instructed to stop all tobacco use. 3. Questionable pulmonary embolus with recent V/Q lung scan showing low probability for pulmonary embolus. 4. Confusion has improved. Patient is awake and alert today. 5. We will advance to a GI soft diet. Continue proton pump inhibitors and Carafate. Instructed patient to stopped using oral tobacco. Further plans to be made as needed. I have given patient contact card to make a followup appointment after discharge. His pathology from his esophagogastroduodenoscopy is pending. I have discussed this case with Dr. Joseph. Dictated by COURTNEY Hahn for Cristian Joseph MD cc: COURTNEY Campos MD [facility]
[2019-12-05] MEDS: ATIVAN PO PRN ×2 (14:19→21:01)
[2019-12-05] MEDS ORDERED: COUMADIN PO SCH (21:00)
[2019-12-05] MEDS: ZYPREXA ZYDIS PO SCH (21:01)
[2019-12-06] MEDS: ZOSYN 3.375 GM in NS 50 ML IV SCH ×5 (00:59→22:02)
[2019-12-06] MEDS: CARAFATE LIQUID PO SCH ×4 (04:00→22:02)
[2019-12-06] MEDS: HUMULIN R SUBQ SCH ×3 (06:41→16:50)
[2019-12-06] MEDS: PRILOSEC PO SCH ×2 (06:41→22:03)
[2019-12-06 08:27] LABS: BASO# 0.02 X1000 (0.0-0.2); BASO% 0.6 % (0.0-0.8); EOS# 0.15 X1000 (0.0-0.7); EOS% 4.4 % (0.0-10.0); HEMATOCRIT 26.2 % (42.0-52.0); HEMOGLOBIN 8.1 g/dL (14.0-18.0); LYMPH# 0.85 X1000 (1.2-3.4); LYMPH% 25.1 % (20.5-51.1); MCH 25.9 PG (27-31); MCHC 30.9 g/dL (33-37); MCV 83.7 FL (81-99); MONO# 0.16 X1000 (0.11-0.59); MONO% 4.7 % (1.7-9.3); MPV 9.1 FL (7.4-10.4); NEUT% 65.2 % (42.2-75.2); PLT 233 X1000 (130-400); RBC 3.13 XMIL (4.7-6.1); RDW 15.1 % (11.5-14.5); WBC 3.38 X1000 (4.8-10.8)
[2019-12-06 08:33] LABS: AGAP 7; BUN 8 mg/dL (8-22); CHLORIDE 100 mmol/L (98-107); COSMO 269; ESTIMATED GFR > 60; GLUCOSE 180 mg/dL (70-104); POTASSIUM 3.8 mmol/L (3.5-5.1); SODIUM 133 mmol/L (136-145); TCO2 26 mmol/L (25-35)
[2019-12-06] MEDS: LOVENOX SUBQ SCH ×2 (09:30→22:02)
[2019-12-06] MEDS: SUBOXONE 8 MG/2 MG FILM SL SCH ×2 (09:30→22:03)
[2019-12-06] MEDS: LANTUS INSULIN SUBQ SCH (09:32)
[2019-12-06] MEDS: ATIVAN PO PRN ×3 (09:39→22:02)
--- NOTE | 2019-12-06 12:59 | GASTROENTEROLOGY PROGRESS NOTE ---
DATE: 12/06/2019 SUBJECTIVE: The patient was moved to a regular floor. He is awake and alert. No acute distress. He has tolerated his diet. Hepatitis C viral load came back detectable, 5,090,000. Patient states he has never been treated for hepatitis C. OBJECTIVE: Vital Signs: Temperature 98.4 degrees, pulse 104, respirations 18, blood pressure 146/73. General: The patient is awake and alert, in no acute distress. His dysphagia has improved. He had findings of small pulmonary embolisms. I believe they will be starting the patient on anticoagulation. Laboratory: Hematology: WBC 3.38, hemoglobin 8.1, hematocrit 26.2, MCV 83.7, platelets 233,000. Coagulation: Prothrombin time 13.9, INR 1.06. Chemistry: Sodium 133, potassium 3.8, chloride 100, CO2 of 26, BUN 8, creatinine 1.0, glucose 180. ASSESSMENT AND PLAN: 1. Dysphagia with esophagogastroduodenoscopy showing esophageal stricture, with dilation performed, and duodenal ulcer. Continue proton pump inhibitor. 2. Pulmonary embolism with V/Q scan showing low probability for pulmonary embolus. Continue recommendations per hospitalists regarding anticoagulation. 3. Oral tobacco use. The patient was counseled regarding tobacco cessation. 4. Hepatitis C with reactive viral load. Patient has never been treated for hepatitis C. I have given him contact information to follow up with us in the office for possible treatment. We will have to try and get patient assistance for hepatitis C medication due to his lack of insurance. 5. Further plans to be made as needed. Again, I have given patient information to make an office visit for further evaluation regarding hepatitis C treatment. I have discussed this case with Dr. Joseph. Dictated by COURTNEY Hahn for Cristian Joseph MD cc: COURTNEY Campos MD
[2019-12-06] MEDS ORDERED: COUMADIN PO ONE (18:44)
--- NOTE | 2019-12-06 19:14 | PROVIDER PROGRESS NOTE ---
Progress Note Patient has been seen and examined. A full dictation to follow.
--- NOTE | 2019-12-06 20:37 | PROGRESS NOTE ---
DATE: 12/06/2019 SUBJECTIVE: Patient has no major complaints. OBJECTIVE: Vital signs: Blood pressure is fairly stable 146/68, heart rate of 105, respiratory rate of 18, temperature 98.5 degrees. Cardiovascular: Regular rate and rhythm. Pulmonary: Bilateral breath sounds clear to auscultation. Gastrointestinal: Soft, nontender, nondistended. Bowel sounds are positive. PROBLEM LIST: 1. We will start off from why he was admitted, which was uncontrolled sugars. That has improved, and he seems to be doing okay. 2. Dysphagia, which was related to esophageal stricture, which has since been dilated, and he is tolerating a soft diet somewhat. 3. Pulmonary embolus, very small pulmonary emboli. They did not even show up on V/Q. Pulmonary, however, is recommending 3 months of anticoagulation. He is self-pay so we will have to do Coumadin and follow from that standpoint. His INR is subtherapeutic unless we can somehow secure anticoagulation and with Lovenox either by donation from the hospital or setting up a outpatient scholarship dosing, he will need some to go home with as well to bridge him until therapeutic on the coumadin. 4. Altered mental status that may have been related to his drug use. 5. Hepatitis C. He has got chronic active hepatitis C, so he will need follow up and treatment for that. DISPOSITION: At this point is pending therapeutic INR, and we will continue to follow. cc: Felix Parrish MD MTDD
--- NOTE | 2019-12-06 20:37 | PULMONOLOGY CONSULTATION ---
DATE: 12/06/2019 REQUESTING PROVIDER: Dr. Alvarez Parrish. REASON FOR CONSULTATION: Small pulmonary embolism. HISTORY OF PRESENT ILLNESS: This is a 54-year-old male with a medical history of diabetes mellitus type 2, hepatitis C, chronic kidney disease stage 2, dysphagia, probable left side DVT and IV drug abuse, daily tobacco abuse. He has been admitted since 11/28/2019 with uncontrolled diabetes mellitus type 2, with hypoglycemia, intractable nausea and vomiting, with complaints of dysphagia. He did undergo EGD with dilation of esophagus with guidewire and biopsy on 12/01/2019. CT thorax with contrast on 12/02/2019 revealed mild emphysematous change, ill- defined bilateral infiltrates which are suspicious for pneumonia or atypical infection or inflammation, small bilateral pleural effusions, two apparent small pulmonary emboli at right lower lobe pulmonary artery branch, diffuse thickening of maria of the esophagus, particularly at the mid and distal esophagus, suspicious for esophagitis. However, lung scan VQ on 12/05/2019 initially showed low probability for pulmonary embolus, with no ventilation and perfusion defects, No large wedge shaped perfusion defects and no ventilation perfusion mismatch. Patient currently is sitting in bed with no acute distress noted. He is on room air and tolerates well with no acute respiratory distress or shortness of breath with any activities noted. He got some agitated when his bedside phone kept ringing. He also is complaining that so far he still cannot swallow very well. He reports no family history of blood clot. He does smoke, although he has been cutting down significantly recently. He did smoke regularly before with about 1 pack per day for a long time. He reports that he had right leg pain recently, but he does not remember how long it had already been, which has been resolved at this time. He denies any recent long drive or flying. He denied any recent trauma or surgical procedure. He has no chest pain or palpitation, bowel habit change, urination discomfort, pedal edema. PAST MEDICAL AND SURGICAL HISTORY: 1. Diabetes mellitus type 2, uncontrolled. 2. Hepatitis C. 3. Chronic kidney disease, stage II. 4. Dysphagia with esophageal stricture and esophagitis, status post EGD with dilation of esophagus over a guidewire and biopsy on 12/01/2019. He had another EGD done on 08/18/2014. 5. History of probable left side DVT in August 2014. 6. IV drug abuse. 7. Tobacco abuse, ongoing. SOCIAL HISTORY: Patient smokes 1 pack per day since age of 18, and has been cutting significantly in last month secondary to severe illness. He has history of alcohol use and quit drinking about a year ago. He smokes marijuana once a month and last time was 1 month ago. He uses IV methamphetamines and last use was about a month ago. He has 3 daughters. He lives at home with a common-law . Currently, he is jobless. FAMILY HISTORY: Positive for COPD, diabetes mellitus, and coronary artery disease. ALLERGIES: No known drug allergies. REVIEW OF SYSTEMS: A 10-point review of systems was conducted and the pertinents are listed within the HPI, otherwise noncontributory. PHYSICAL EXAMINATION: Vital Signs: Temperature 98.4 degrees, blood pressure 146/73, pulse 104, respiratory rate 18, oxygen saturation 97 on room air. General: Chronically ill appearing, easy to get agitated, sitting in bed with no acute cardiac or pulmonary distress noted. HEENT: Atraumatic, normocephalic. Trachea midline. Mucosa pink and moist. Respiratory: Even and unlabored. Symmetrical excursion. Clear to auscultation bilaterally. Cardiovascular: Regular rate and rhythm with S1, S2 appreciated. Gastrointestinal: Soft, nontender, nondistended. Bowel sounds present in all 4 quadrants. Extremities: No pedal edema. No cyanosis. No clubbing. Neurologic: Alert and oriented x3. Speech fluent. Follows commands. Mildly anxious currently. LAB DATA: White blood cells 3.38, hemoglobin 8.1, hematocrit 26.2, platelet 233,000. Sodium 133, potassium 3.8, chloride 100, carbon dioxide 26, BUN 8, creatinine 1.0, glucose 180. IMAGING DATA: See [facility] for lung scan V/Q on 12/05/[address] on 12/02/2019. ASSESSMENT: This is a 54-year-old male with a medical history of uncontrolled diabetes mellitus type 2, hepatitis C, chronic kidney disease stage 2, dysphagia with esophageal stricture and esophagitis, probable left-sided deep venous thrombosis, intravenous drug abuse, and tobacco abuse. He has been admitted since 11/28/2019 with uncontrolled diabetes mellitus type 2 with hyperglycemia and intractable nausea and vomiting with dysphagia. Chest CT on 12/02/2019 revealed 2 apparent small pulmonary emboli at the right lower lobe pulmonary artery branches, and ill- defined bilateral infiltrates suspicious for pneumonia or atypical infection or inflammation, with small bilateral pleural effusions which is not shown on lung scan V/Q. 1. Two apparent small pulmonary emboli at right lower lobe pulmonary artery branches, identified by CT thorax with contrast on 12/02/2019, but not identified by lung scan V/Q. 2. Ill-defined bilateral infiltrates suspicious for pneumonia or atypical infection or inflammation, with small bilateral pleural effusions. 3. Dysphagia, with esophageal stricture and esophagitis, status post esophagogastroduodenoscopy with dilation of esophagus and biopsy on 12/01/2019, per Dr. Joseph. 4. Tobacco and marijuana use. PLAN: 1. Continue antibiotics. 2. Continue Lovenox and warfarin. Treat pulmonary embolism for 3 months. 3. Recommend Hematology followup outpatient. 4. Tobacco cessation education. 5. Further recommendations pending hospital course. Thank you for the courtesy of this consult. Dr. Camp did the evaluation, examination and management. Nurse practitioner did the scribing/dictation for Dr. Camp according to his directions. Dictated by COURTNEY Werner for Wong Camp MD cc: COURTNEY Werner MD [facility]
[2019-12-06] MEDS: ZYPREXA ZYDIS PO SCH (22:03)
[2019-12-07] MEDS: HUMULIN R SUBQ SCH ×5 (01:54→21:42)
[2019-12-07] MEDS: ZOSYN 3.375 GM in NS 50 ML IV SCH ×4 (01:54→17:40)
[2019-12-07] MEDS: CARAFATE LIQUID PO SCH ×4 (01:56→21:41)
[2019-12-07] MEDS: PRILOSEC PO SCH ×2 (06:21→21:41)
[2019-12-07 08:41] LABS: BASO# 0.01 X1000 (0.0-0.2); BASO% 0.2 % (0.0-0.8); EOS# 0.13 X1000 (0.0-0.7); EOS% 2.1 % (0.0-10.0); HEMATOCRIT 29.7 % (42.0-52.0); HEMOGLOBIN 9.2 g/dL (14.0-18.0); LYMPH# 1.01 X1000 (1.2-3.4); LYMPH% 16.6 % (20.5-51.1); MCH 25.6 PG (27-31); MCV 82.7 FL (81-99); MONO# 0.36 X1000 (0.11-0.59); MONO% 5.9 % (1.7-9.3); MPV 8.7 FL (7.4-10.4); NEUT# 4.59 X1000 (1.4-6.5); NEUT% 75.2 % (42.2-75.2); PLT 251 X1000 (130-400); RBC 3.59 XMIL (4.7-6.1); RDW 15.5 % (11.5-14.5)
[2019-12-07 08:46] LABS: INR 1.1; PROTIME 14.4 Seconds (11.0-16.0)
[2019-12-07 08:57] LABS: AGAP 8; ALB/GLOB RATIO 0.6; ALBUMIN 2.3 g/dL (3.5-5.0); ALKALINE PHOSPHATASE 96 U/L (32-122); BUN 8 mg/dL (8-22); CALCIUM 8.4 mg/dL (8.8-10.2); CHLORIDE 101 mmol/L (98-107); COSMO 273; ESTIMATED GFR > 60; GLUCOSE 147 mg/dL (70-104); GOT 25 U/L (10-34); GPT 12 U/L (10-44); POTASSIUM 3.8 mmol/L (3.5-5.1); SODIUM 136 mmol/L (136-145); TCO2 27 mmol/L (25-35); TOTAL BILIRUBIN 0.16 mg/dL (0.20-1.00); TOTAL PROTEIN 6.1 g/dL (6.3-8.3)
[2019-12-07] MEDS: SUBOXONE 8 MG/2 MG FILM SL SCH ×2 (10:19→21:42)
--- NOTE | 2019-12-07 11:10 | PROGRESS NOTE ---
DATE: 12/07/2019 SUBJECTIVE: The patient reports feeling okay. He is feeling very hungry. He is n.p.o. for an abdominal ultrasound. OBJECTIVE: Vital Signs: Temperature 98.7, heart rate 96, respiratory rate 18, blood pressure 158/79, O2 saturation 96% on room air. General: This is a 54-year-old, male, lying in bed in no acute distress. Cardiovascular: S1, S2 heard. No murmurs, gallops, or rubs. Regular rate and rhythm. Respiratory: Clear bilaterally to auscultation. No work of breathing or using accessory muscles. Abdomen: Soft, nontender to palpation. Bowel sounds present. No organomegaly. Extremities: No clubbing, cyanosis, or edema. Peripheral pulses present in both legs. Neurological: The patient is alert and oriented x3. Moves all 4 extremities. LABORATORY DATA: Reviewed. ASSESSMENT AND PLAN: 1. Uncontrolled diabetes mellitus, most likely related to dietary indiscretions, according to nursing staff. The patient's blood sugars are much better controlled. Will continue with the current management. He is receiving Lantus 20 units daily and a sliding scale, but considering that this patient is uninsured, we are going to switch to insulin 70/30, and will see how this patient does. Will continue current management, but at discharge, considering that he is uninsured, will use metformin and another antidiabetic agent oral, like glipizide or glyburide. 2. Dysphagia. The patient has an esophageal stricture that has been dilated. He is still complaining of some dysphagia. Will see what Gastroenterology has to say. 3. Pulmonary embolism. The patient has been evaluated by Pulmonary, and they recommend 3 months of anticoagulation. He is self-pay. At this point, he is receiving Lovenox and warfarin. I think that is the only thing that we have to fix. If we are able to provide Lovenox, I think this patient can be discharged, but the other problem will be followup because this patient will need to have his INR controlled at least twice to 3 times per month. We have talked with social media analyst to see what else we can do. 4. Altered mental status. Resolved. 5. Hepatitis C. The patient has some tests done to check viral load and genotype, and he is going to be seen in the office upon discharge. cc: Parker Beasley MD
--- NOTE | 2019-12-07 11:28 | Diag Imaging Result Doc PS360 ---
EXAM: US ABDOMEN-COMPLETE HISTORY: attn liver, hx Hep C TECHNIQUE: Abdominal ultrasound COMPARISON: None. FINDINGS: Normal pancreas. No abdominal aortic aneurysm. Normal inferior vena cava. No focal hepatic abnormality. The liver measures 17.2 cm in length. Normal gallbladder. No stones. The common bile that measures 5 mm. Normal spleen. No ascites. Normal kidneys. No hydronephrosis. IMPRESSION: Normal abdominal ultrasound. Electronically signed by Antonio Acevedo 12/07/2019 11:25 AM
[2019-12-07] MEDS: LANTUS INSULIN SUBQ SCH (11:35)
[2019-12-07] MEDS: LOVENOX SUBQ SCH ×2 (11:36→21:41)
[2019-12-07] MEDS: ATIVAN PO PRN ×3 (11:40→22:00)
--- NOTE | 2019-12-07 14:09 | PROVIDER PROGRESS NOTE ---
Progress Note We are signing off. Please reconsult if needed.
--- NOTE | 2019-12-07 19:53 | GASTROENTEROLOGY PROGRESS NOTE ---
DATE: 12/07/2019 SUBJECTIVE: The patient was sitting up in the bed. He has reported some dysphagia today. Ultrasound was ordered with attention to liver. There were no liver abnormalities noted, I have also ordered a hepatitis C genotype. Once the patient is discharged, I have recommend he follow up with us in the office for evaluation of hepatitis C treatment. Since he does not have insurance, we will have to get patient assistance through the pharmaceutical company, and we will work on that as an outpatient once the patient follows up in the office. OBJECTIVE: Vital signs: Temperature 98.8 degrees, pulse 110, respirations 17, blood pressure 148/71. Generally the patient is awake, alert, in no acute distress. LABORATORY DATA: Hematology: WBC 6.10, hemoglobin 9.2, hematocrit 29.7, MCV 82.7, platelets 251,000. Coagulation: Pro time 14.4, INR 1.10. Chemistry: Sodium 136, potassium 3.8, chloride 101, CO2 is 27, BUN 8, creatinine 1.0, glucose 147, total bilirubin 0.16, AST 25, ALT 12, alkaline phosphatase 96. ASSESSMENT AND PLAN: 1. Dysphagia. Esophagogastroduodenoscopy showing severe esophageal stricture, with dilation performed, and duodenal ulcer. Continue proton pump inhibitor twice daily and Carafate. 2. Pulmonary embolism, with VQ scan showing low probability for embolus. The patient is being started on anticoagulation. 3. Hepatitis C, with reactive viral load. Ultrasound of the abdomen today showed no abnormality to the liver. There was no evidence of cirrhosis of the liver. I am waiting on hepatitis C genotype. I have recommended followup with us as an outpatient to try and get patient assistance through the [employer], since the patient does not have insurance. 4. We will continue to follow during his hospital course. Further plans to be made according to his progress. Recommended to follow strict antireflux measures, and he needs to follow a soft diet. If he continues to have some dysphagia, we may have to go back over to a full liquid diet. Further plans to be made as needed. I have discussed this case with Dr. Joseph. Dictated by COURTNEY Hahn for Cristian Joseph MD cc: COURTNEY Campos MD
[2019-12-07] MEDS: ZYPREXA ZYDIS PO SCH (21:40)
[2019-12-07] MEDS: COUMADIN PO SCH (21:41)
[2019-12-08] MEDS: ZOSYN 3.375 GM in NS 50 ML IV SCH ×4 (00:46→19:32)
[2019-12-08] MEDS: CARAFATE LIQUID PO SCH ×4 (06:47→22:30)
[2019-12-08] MEDS: HUMULIN R SUBQ SCH ×4 (06:48→22:59)
[2019-12-08] MEDS: PRILOSEC PO SCH ×2 (06:48→22:31)
[2019-12-08 08:18] LABS: INR 1.89; PROTIME 22.1 Seconds (11.0-16.0)
[2019-12-08] MEDS: ATIVAN PO PRN ×3 (09:01→22:35)
[2019-12-08] MEDS ORDERED: COUMADIN PO ONE (09:12)
[2019-12-08] MEDS ORDERED: JANTOVEN PO ONE (09:12)
[2019-12-08] MEDS: LOVENOX SUBQ SCH ×2 (09:44→22:31)
[2019-12-08] MEDS: LANTUS INSULIN SUBQ SCH (09:45)
[2019-12-08] MEDS: SUBOXONE 8 MG/2 MG FILM SL SCH ×2 (09:45→22:31)
--- NOTE | 2019-12-08 10:09 | PROGRESS NOTE ---
DATE: 12/08/2019 SUBJECTIVE: Patient reports feeling fine. No problems with swallowing. OBJECTIVE: Vital Signs: Temperature 98.0 degrees, heart rate 84, respiratory rate 20, blood pressure 154/79, O2 saturation 96% on room air. General: This is a 54-year-old male, lying in bed, in no acute distress. Cardiovascular: S1, S2 heard. No murmurs, gallops, or rubs. Regular rate and rhythm. Respiratory: Clear bilaterally to auscultation. No work of breathing or using accessory muscles. Abdomen: Soft, nontender to palpation. Bowel sounds present. No organomegaly. Extremities: No clubbing, cyanosis, or edema. Peripheral pulses present in both legs. Neurological: Patient alert and oriented x3. Moves all 4 extremities. LABORATORY DATA: Reviewed. ASSESSMENT AND PLAN: 1. Uncontrolled diabetes mellitus. Blood sugars are better. We will continue current management and as we mentioned before, at discharge we will start metformin and another diabetic oral agent like Glipizide or glyburide. At this point, we will continue with same management. 2. Dysphagia. Patient has an esophageal stricture that has been dilated. He is not complaining today of any dysphagia. Patient is on clear liquid diet. We will continue to monitor. 3. Pulmonary embolism. The patient is receiving warfarin and also Lovenox 1 mg/kg every 12 hours. His INR is 1.86. He is receiving warfarin 5 mg p.o. at bedtime. I think we are going to give him 1 more dose of warfarin 5 mg now and see. If INR tomorrow is within the range of 2 and 3, I think this patient can be discharged. 4. Altered mental status, resolved. 5. Hepatitis C. Abdominal ultrasound did not show any signs of cirrhosis. At this point, the patient will be seen as an outpatient by GI. cc: Parker Beasley MD
[2019-12-08 22:10] LABS: HEPATITIS C GENOTYPE SEE COMMENTS
[2019-12-08] MEDS: COUMADIN PO SCH (22:31)
[2019-12-08] MEDS: ZYPREXA ZYDIS PO SCH (22:32)
[2019-12-09] MEDS: ZOSYN 3.375 GM in NS 50 ML IV SCH ×2 (01:35→05:48)
[2019-12-09] MEDS: CARAFATE LIQUID PO SCH ×2 (01:36→08:08)
[2019-12-09] MEDS: PRILOSEC PO SCH ×2 (05:48→06:08)
[2019-12-09] MEDS: HUMULIN R SUBQ SCH (06:08)
[2019-12-09 08:24] LABS: INR 2.56; PROTIME 28.2 Seconds (11.0-16.0)
[2019-12-09] MEDS: SUBOXONE 8 MG/2 MG FILM SL SCH (09:13)
[2019-12-09] MEDS: LANTUS INSULIN SUBQ SCH (09:13)
[2019-12-09] MEDS: LOVENOX SUBQ SCH (09:13)
[2019-12-09 12:05] VITALS: BP 152/85
--- NOTE | 2019-12-10 00:08 | DISCHARGE SUMMARY ---
ADMISSION DATE: 11/28/2019 DISCHARGE DATE: 12/09/2019 PRIMARY CARE PROVIDER: None. PERTINENT PROCEDURES: Gastric emptying study, negative exam. Barium swallow reflux esophagitis, Lam's esophagus, thickened gastric folds at the greater curvature of the stomach suggesting gastritis with possible small ulcerations at the same region. EGD with dilatation of the esophagus performed by Dr. Joseph. Chest CT, mild emphysematous changes. Head CT, no evidence of acute intracranial pathology. V/Q scan low probability for PE. Abdominal ultrasound normal. CONSULTATIONS: 1. Dr. Joseph with Gastroenterology. 2. Dr. Camp with Pulmonology. DISCHARGE DIAGNOSES: 1. Uncontrolled diabetes. Blood sugars are now more controlled. Patient will be discharged on NovoLog 70/30. 2. Dysphagia. The patient had an esophageal stricture that was dilated. Currently tolerating a soft diabetic diet. He will need to follow strict anti-reflux measures. 3. PE. The patient has had a Lovenox to Coumadin bridge and will be discharged home on Coumadin and will need his INR checked every 2 weeks by primary care provider with the list that has been provided to him. If he is not able to find one, he will need to come to the hospital to have his PT and INR checked every 2 weeks. 4. Altered mental status, resolved. 5. Hepatitis C. Abdominal ultrasound did not show any signs of cirrhosis. The patient will be monitored outpatient by GI. They are awaiting assistance through the pharmaceutical company since the patient does not have any insurance. HOSPITAL COURSE: Briefly, Mr. Wallace is a 54-year-old gentleman with a past medical history of type 2 diabetes, hepatitis C, chronic kidney disease stage 2, dysphagia, PE, IV drug abuse, daily tobacco abuse who was admitted on 11/28/2019 with uncontrolled diabetes mellitus type 2 and hypoglycemia, intractable nausea and vomiting with complaints of dysphagia. He underwent an EGD with dilatation with Dr. Joseph. He was also treated for PE. His blood sugars have improved. His mentation has improved. I believe it is secondary to his IV drug use. His hepatitis C will have to be managed outpatient. They are in contact with pharmaceutical companies as he will need assistance with medication as he does not have any insurance. This will be treated on an outpatient basis. His PE will have to be treated with Coumadin, again secondary to no insurance. He will have to find a primary care provider to check his PT and INR every 2 weeks. He has been instructed if he cannot find a primary care provider, he will have to come to the hospital every 2 weeks to have his PT and INR checked and medication adjustments will have to be made. He is currently tolerating a soft diabetic diet with his dysphagia after his dilatation. He has been educated if he starts having issues with his swallowing again that he has to go back to a full liquid diet and maintain close follow up with Dr. Joseph. VITAL SIGNS: At time of discharge, temperature is 98.1 degrees, heart rate 87, respirations 22, blood pressure 150/82. O2 is 100% on room air. DISCHARGE DIET: Diabetic soft. DISCHARGE MEDICATIONS: 1. Suboxone 1 each sublingual b.i.d. 2. Coumadin 5 mg p.o. at bedtime. 3. Ativan 0.5 mg p.o. t.i.d. p.r.n. 4. Carafate liquid 1 g p.o. q. 6 hours. 5. NicoDerm patch 21 mg TD daily p.r.n. 6. NovoLog mix 70/30, 25 units subcutaneously b.i.d. 7. Prilosec 40 mg p.o. b.i.d. FOLLOWUP: Mr. Wallace is being discharged back home with self care. He has been instructed to have his INR checked every 2 weeks, find a primary care provider from the list that has been provided to him. If he cannot find a primary care provider, he will need to come to the hospital to get his INR checked every 2 weeks. He is to follow up with Dr. Joseph secondary to his hepatitis C as well as dysphagia. They are in contact with pharmaceutical companies given his hepatitis C as he will need assistance secondary to no insurance. Rn Maternity has given him and the daughter information on cost of Lovenox and his Coumadin. [facility] assistance and Coumadin is 4 dollars a month at [facility]. Daughter does report they can help the family and the patient with the cost of the Lovenox. They have also been provided with the number of the [facility]. He can return to the ED or call 911 for any worsening of symptoms. Dictated by COURTNEY Morris for Parker Beasley MD Addendum: Patient seen and examined by myself. Agree with INPATIENT CODER note. It reflects my assessment and plan. Patient is being discharged in stable condition. Will be seen at [facility] as scheduled. cc: Parker Beasley MD MTDD
--- NOTE | 2019-12-12 10:26 | Extremity Venous Study ---
PROCEDURE NAME: Venous U/S Bilateral Legs - 12/03/2019 STUDY: Bilateral lower extremity venous duplex and color flow imaging study using the [employer] vivid E9 Ultrasound System with a 9 L-D transducer. REFERRING PHYSICIAN: Dr. Parrish. IDENTIFICATION: A 54-year-old male. SCIENCE EDUCATION PROFESSOR: Rafaela Fraire RVT. INDICATION: Bilateral lower extremity pain and edema, suggestive of deep venous thrombosis. FINDINGS: The right common femoral vein and its branches, deep and superficial femoral veins were satisfactorily imaged. They had flow through them and were compressible. Right popliteal vein and deep veins below the right knee were all compressible and had flow through them. The superficial veins of the right lower extremity were compressible throughout their length. The left common femoral vein and its branches, deep and superficial femoral veins were also satisfactorily imaged. They had flow through them and were compressible. Left popliteal vein and deep veins below the left knee were all compressible and had flow through them. The superficial veins of the left lower extremity were compressible throughout their length. INTERPRETATION: No evidence of acute deep or superficial venous thrombosis of the bilateral lower extremities. cc: MD Felix Dominguez MD
== END 2019-12-09 12:08 | disposition home or self-care (01) | DRG 391 ==
LOC: ED 13:22 → EDIPHOLD 16:50 → SUATTDRO 16:50 → 4N 19:06 → 2N 12-01 21:32 → 3N 12-05 16:51
PROVIDERS: ATTEND Internal Medicine

== ENCOUNTER 2020-01-04 13:51 | Inpatient (IN) ==
[2020-01-04] MEDS ORDERED: SODIUM BICARBONATE 8.4% 100 MEQ in STERILE WATER INJ. 500 ML IV PRN (14:05)
[2020-01-04] MEDS ORDERED: NS 1,000 ML IV ONE ×4 (14:05→17:36)
[2020-01-04] MEDS ORDERED: POTASSIUM CHLORIDE 20% LIQUID PO PRN (14:05)
[2020-01-04] MEDS ORDERED: HUMULIN R IV ONE (14:05)
[2020-01-04] MEDS ORDERED: POTASSIUM CHLORIDE 20 MEQ/SWI 20 MEQ/100 ML IVPB IV PRN ×2 (14:05)
[2020-01-04] MEDS ORDERED: MAGNESIUM SULFATE 2 GM/S.W.I. 2 GM/50 ML IVPB IV PRN (14:05)
[2020-01-04] MEDS ORDERED: SODIUM PHOSPHATE 30 MMOL in D5W 250 ML IV PRN (14:05)
[2020-01-04] MEDS ORDERED: POTASSIUM CHLORIDE 10% LIQUID PO PRN (14:05)
--- NOTE | 2020-01-04 14:11 | PROVIDER DOCUMENTATION ---
HPI-General Adult - General Chief Complaint: DKA ALERT Stated Complaint: DKA Time Seen by Provider: 01/04/20 14:05 Source: patient Allergies/Adverse Reactions: Patient Allergies Allergy/AdvReac Type Severity Reaction Status Date / Time No Known Allergies Allergy Verified 08/15/14 12:04 Home Medications: Home Medication List Medication Instructions Recorded Confirmed Last Taken Type Buprenorphine/Naloxone S.l. 1 each SL BID 11/12/18 11/28/19 Unknown History [Suboxone 8 mg/2 mg Film] Insulin Novolog 70/30 [Novolog Mix 25 unit SUBQ BID AC #9 insuln.pen 12/09/19 Unknown Rx 70/30] Lorazepam [Ativan] 0.5 mg PO TID PRN PRN #60 tab 12/09/19 Unknown Rx Nicotine Patch [Nicoderm Patch] 21 mg TD DAILY PRN PRN patch.td24 12/09/19 Unknown Rx Omeprazole 40 mg PO BID #60 capsule.dr 12/09/19 Unknown Rx Sucralfate [Carafate Liquid] 1 gm PO Q6H #120 udc 12/09/19 Unknown Rx Warfarin [Coumadin] 5 mg PO QHS #90 tab 12/09/19 Unknown Rx - History of Present Illness -Gen Adult Nature of Presenting Problems: This is a 54 yowm who presnts to the ED via EMS with c/o SOB, increased blood sugar, and swallowing problem. He states that he had an esophagus procedure done a couple of weeks ago and has not eaten or drank anything in 3 days. Location of Pain/Injury: reports: generalized Pain Radiation: reports: no radiation Quality of Pain: reports: other (cannot describe) Severity: reports: moderate. denies: mild, severe Onset/Duration: reports: unsure Timing: reports: still present. denies: improving, gone now Context/Activities at Onset: reports: none Modifying Factors: improves with: nothing Associated Symptoms: reports: other (trouble swallowing, high blood sugar, feels horrible.) Similar Symptoms Previously?: Yes Recently seen or treated by another doctor?: No Review of Systems - Adult - REVIEW OF SYSTEMS - ADULT Constitutional: reports: see HPI Eyes: reports: no symptoms reported Ears, Nose, Mouth & Throat: reports: other (mouth/throat dryness) Cardiovascular: reports: no symptoms reported Respiratory: reports: see HPI, shortness of breath Gastrointestinal: reports: difficulty swallowing, other (states he had procedure on his throat a couple of weeks ago and has trouble swallowing. States something about throat cancer but cannot explain further.) Genitourinary: reports: no symptoms reported Musculoskeletal: reports: muscle aches (generalized) Integumentary: reports: no symptoms reported Neurological: reports: no symptoms reported Psychiatric: reports: no symptoms reported Past History - Adult - PAST MEDICAL HISTORY-ADULT Review of Records: reports: Old Records Reviewed, Nursing Assessment Review, Medications Reviewed, Social history reviewed & non-contributory. Major Childhood Illnesses: reports: denies history Cardiovascular: reports: denies history Respiratory: reports: sleep apnea Gastrointestinal: reports: GERD Obstetrical/Gynecological: reports: denies history Genitourinary: reports: kidney disease (renal failure) Musculoskeletal: reports: denies history Neurological: reports: denies history Psychiatric: reports: denies history Endocrine/Immune: reports: Diabetes, other (hx of hepatitis C) Other Conditions: reports: denies history - PRIOR SURGERIES/PROCEDURES Surgical/Procedure History: reports: tonsillectomy - IMMUNIZATION STATUS Childhood Immunizations: See Nurse Assessment Flu Vaccine: See Nurse Assessment - FAMILY HISTORY Family History: reviewed, not pertinent - SOCIAL HISTORY Smoking: other (will not answer.) Physical Exam-General - PHYSICAL EXAM-ADULT Initial Vital Signs Reviewed: Yes - CONSTITUTIONAL General Appearance: alert, moderate distress, thin (extremely), anxious, other (Difficulty answering questions appropriately. A/O X 2. Aware to person and place. Patient jumped out of bed and was attempting to get water out of the sink. Cursing at staff.). negative: appears well, no apparent distress, mild distress - EYES Eyes: PERRL/EOMI, pink conjunctivae - HEAD, EARS, NOSE, MOUTH & THROAT HENMT: normocephalic/atraumatic, dental decay, other (mucous membranes extremtly dry.). negative: moist mucous membranes, normal ENT inspection - NECK Neck: non-tender, full range of motion, supple, normal inspection - RESPIRATORY Respiratory: chest non-tender, lungs clear, accessory muscle use, increased rate (increased WOB (Kussmaul's respirations)) - CARDIOVASCULAR Cardiovascular: normal peripheral pulses, no edema, no gallop - GASTROINTESTINAL (ABDOMEN) Abdominal Exam: normal bowel sounds, non tender, soft, hepatomegaly - LYMPHATIC Lymphatic: no adenopathy - MUSCULOSKELETAL Back Exam: normal inspection, no CVA tenderness, no vertebral tenderness Extremity: normal range of motion, non-tender, normal gait, normal inspection, no pedal edema Peripheral Pulses: radial (R): 2+, radial (L): 2+ - SKIN Integumentary: normal color, normal turgor, warm/dry, ecchymosis (left knee, mild to right knee) - NEUROLOGIC Neurologic: grossly normal - PSYCHIATRIC Psych/Mental Status: anxious, disheveled, other (Alert, oriented to self and place. Unable to answer most questions with coherent answers.). negative: normal mood/affect, normal thought content, normal thought process, oriented x 3 Progress - PLAN OF CARE/RESULTS Progress/Plan/Lab Results: Vital Signs - 8 hr 01/04/20 14:01 Pulse Rate 127 H Respiratory Rate 24 Blood Pressure 130/83 O2 Sat by Pulse Oximetry 100 Bedside Urine ED: Urine Bedside Start: 01/04/20 14:05 Freq: NOW Status: Cancelled Protocol: Activity Type Activity Date Activity User E-Sign Co-Sign Detail Recorded Client Recorded Date Recorded By Edit Status 01/04/20 14:10 [id number] Active=>Cancelled [id number] 01/04/20 14:10 [id number] Orders Category Date Time Status Cardiac Monitoring DIRECTED Care 01/04/20 14:05 Active FSBS/Accucheck Result Q15M Care 01/04/20 14:06 Active FSBS/Accucheck Result Q1H Care 01/04/20 14:05 Active Hypoglycemia/FSBS <50 or Range of 50-70 PRN Care 01/04/20 14:06 Active Notify Physician ORDERED Care 01/04/20 14:06 Active Nursing- Obtain EKG ONCE Care 01/04/20 13:53 Active Saline Loc DIRECTED Care 01/04/20 14:06 Active Saline Loc NOW Care 01/04/20 14:05 Active Vital Signs Order Q1H Care 01/04/20 14:05 Active CHEST-1 VIEW [RAD] Stat Exams 01/04/20 13:53 Ordered ABG [RESP] Routine Lab 01/04/20 13:53 Ordered ACETONE SERUM [CHEM] Stat Lab 01/04/20 14:05 Uncollected CBC WITH NO DIFF [HEME] Stat Lab 01/04/20 14:05 Uncollected CK PROFILE [SP CHEM] Stat Lab 01/04/20 14:05 Uncollected COMPREHENSIVE METABOLIC PANEL [CHEM] Stat Lab 01/04/20 14:05 Uncollected LACTATE, PLASMA [CHEM] Stat Lab 01/04/20 14:05 Uncollected MAGNESIUM [CHEM] Stat Lab 01/04/20 14:05 Uncollected PHOSPHORUS [CHEM] Stat Lab 01/04/20 14:05 Uncollected POTASSIUM [CHEM] Timed Lab 01/04/20 14:05 Uncollected TROPONIN T HIGH SENSITIVITY Stat Lab 01/04/20 14:05 Uncollected URINALYSIS [URINALYSIS] Stat Lab 01/04/20 14:05 Uncollected URINE DRUG SCREEN PL Stat Lab 01/04/20 14:05 Uncollected URINE DRUG SCREEN Stat Lab 01/04/20 14:05 Uncollected 0.9% Sodium Chloride Inj [Ns] 1,000 ml Med 01/04/20 14:15 Ordered IV 500 mls/hr 0.9% Sodium Chloride Inj [Ns] 1,000 ml Med 01/04/20 14:05 Active IV 999 mls/hr 0.9% Sodium Chloride Inj [Ns] 100 ml Med 01/04/20 14:15 Ordered Insulin Human Regular [Humulin R] 100 unit IV Per Protocol mls/hr Dextrose 50% Syringe [D50w Syringe] Med 01/04/20 14:05 Ordered 25 ml IV PRN PRN Dextrose 50% Syringe [D50w Syringe] Med 01/04/20 14:05 Ordered 50 ml IV PRN PRN Insulin Human Regular [Humulin R] Med 01/04/20 14:05 Discontinued 10 unit IV ONCE ONE Magnesium Sulfate 2 gm/S.w.i. Med 01/04/20 14:05 Ordered 2 gm in 50 ml IV ONCE PRN Potassium Chloride 10% Liquid Med 01/04/20 14:05 Ordered 20 meq PO ONCE PRN PRN Potassium Chloride 20 Meq/Swi Med 01/04/20 14:05 Ordered 20 meq in 100 ml IV ONCE PRN Potassium Chloride 20 Meq/Swi Med 01/04/20 14:05 Ordered 20 meq in 100 ml IV ONCE PRN Potassium Chloride 20% Liquid Med 01/04/20 14:05 Ordered 40 meq PO ONCE PRN PRN Sodium Bicarbonate 8.4% 100 meq Med 01/04/20 14:05 Ordered Water, Sterile Inj [Sterile Water Inj] 500 ml IV ONCE PRN Sodium Phosphate 30 mmol Med 01/04/20 14:05 Ordered Dextrose 5%-Water Inj [D5w] 250 ml IV ONCE PRN Hypoglycemia Stat Oth 01/04/20 14:05 Ordered EKG [EKG] Stat Ther 01/04/20 13:[address] Matute at bedside for evaluation. After ABG results, I discussed with Dr. Matute the need to intubate due to sev ere metabolic acidosis with AMS and inability to protect his airway. Dr. Matute agreed and patient was intubated. See intubation notes. Laboratory Tests 01/04/20 01/04/20 01/04/20 14:33 15:15 16:32 Specimen Type ARTERIAL Sample Site R BRACHIAL pH 7.13 L* pCO2 11 L* pO2 122 H HCO3 6.9 L Base Excess -23.1 L Oxyhemoglobin 96.5 ABG O2 Sat (Calculated) 17.8 ABG O2 Saturation 99.4 ABG Carboxyhemoglobin 1.80 ABG Methemoglobin 1.1 Edvin Test NO A-a O2 Difference 14.0 Total Hemoglobin 13.0 Lactate 3.00 H Liter Flow 0.0 Blood Gas Modality ROOM AIR FiO2 % 21.0 POC Glucose 500 H D 500 H - EKG 1 Time of EKG reading by physician:: 14:28 EKG Read and Signed by:: Tk Matute EKG Interpretation (*Must complete 3 of following elements*): Abnormal Rate: 119 Rhythm: ST [place]: normal QRS: normal [place] Interval: normal ST Wave: normal - CONSULTS/PCP/HOSPITALIST Notification #1 *Consult/PCP/Hospitalist*: Corinna Shabazz Time Discussed: 16:43 Reason/Comments: Admission Consult Disposition: Will see in ED, Admit Procedures - INTUBATION Time of Intubation: 15:35 Airway Evaluation: Large/Loose Teeth Mallampati Class: 2 Intubation Method: orotracheal Equipment: ETT Tube Size (cm): 7.5 Pretreated with 100% Oxygen?: Yes Breath Sounds after Intubation: equal ETT Primary Tube Confirmation: Capnometry CO2 Change, Direct Visualization, Chest Rise and Fall, Tube placement verified on XRAY Intubation Complications: no complications Vent Settings: See Respiratory Therapy Notes Procedure Comment: Pt. intubated due to extreme metabolic acidosis with AMS. Departure - Departure Date of Disposition Decision: 01/04/20 Time of Disposition Decision: 15:21 DIAGNOSIS: Diabetes mellitus, insulin dependent (IDDM), uncontrolled DKA (diabetic ketoacidoses) Qualifiers: Diabetes mellitus type: type 1 Diabetes mellitus complication detail: without coma Qualified Code(s): E10.10 - Type 1 diabetes mellitus with ketoacidosis without coma Disposition: ADMITTED INPATIENT 09 Certified Medical Emergency: Emergent Condition: Serious Referrals and Follow-Ups: None,PCP [Primary Care Provider] - - Critical Care Note This patient required my direct & personal management of CC.: Yes Total Time (mins): 45 Critical Care Statement: This patient required my direct personal management to treat or rule out processes, the absence of which, could potentiallly result in sudden, clinically significant life or limb threatening deterioration. Attestation - Physician/ SUSI Attestation Patient care was provided by Advanced Practice Provider:: Yes Advanced Practice Provider:: Alexandra Pardo Advanced Practice Provider documentation review:: The Mid-level provider documentation, treatment plan and medical decision making was reviewed by the physician who agrees with all treatment and medical decision making by the MLP. The physician spent face to face time with patient:: Yes Advanced Practice Provider documentation review:: Supervising physician onsite a nd consulted in the evaluation and care of this patient. The physician did have a face to face encounter with the patient.
--- NOTE | 2020-01-04 14:20 | EKG Report ---
Test Performed on : 01/04/2020 2:10:52 PM Test Reason : SOB Blood Pressure : / mmHG Vent. Rate : 119 BPM Atrial Rate : 119 BPM P-R Int : 122 ms QRS Dur : 084 ms QT Int : 314 ms P-R-T Axes : 080 076 082 degrees QTc Int : 441 ms Sinus tachycardia. Biatrial enlargement Abnormal ECG When compared with ECG of 01-DEC-2019 18:23, T wave amplitude has increased in Inferior leads Nonspecific T wave abnormality no longer evident in Lateral leads Unconfirmed Result
[2020-01-04 15:18] LABS: ALLEN TEST NO; BE -23.1 mmoll (-3.0-3.0); BLOOD TYPE ARTERIAL; HCO3-(ACT) 6.9 mmoll (20.0-26.0); METHB 1.1 % (0.0-1.5); O2(CT) 17.8 mL/dL (15.0-23.0); O2HB 96.5 % (95.0-99.0); PO2(98.6) 122 mmHg (60-100); SAMPLE BLOOD; SAO2 99.4 % (95.0-100.0)
[2020-01-04 15:20] LABS: MODALITY ROOM AIR
[2020-01-04 15:21] LABS: PCO2(98.6) 11 mmHg (35-45); pH(98.6) 7.13 (7.35-7.45)
[2020-01-04] MEDS ORDERED: AMIDATE IV ONE ×2 (15:28→15:29)
[2020-01-04] MEDS ORDERED: QUELICIN IV ONE (15:28)
[2020-01-04] MEDS ORDERED: AMIDATE ONE (15:32)
[2020-01-04] MEDS ORDERED: QUELICIN ONE (15:32)
[2020-01-04] MEDS ORDERED: DIPRIVAN 1% 1,000 MG/100 ML BOTTLE ONE (15:44)
[2020-01-04] MEDS: DIPRIVAN 1% 1,000 MG/100 ML BOTTLE IV SCH ×3 (15:48→22:29)
[2020-01-04 16:42] LABS: URINE SOURCE CATH
--- NOTE | 2020-01-04 16:46 | Diag Imaging Result Doc PS360 ---
EXAM: CHEST-1 VIEW HISTORY: SOB TECHNIQUE: Single view. COMPARISON: 12/05/2019 FINDINGS: The cardiomediastinal silhouette is within normal limits. Left-sided PICC catheter has been removed. There prominent markings right hemithorax which may be related to technical factors or developing right lung infiltrate. Consider follow-up with PA and lateral patient is able. Left lung is clear. No effusions. IMPRESSION: Prominent right lung markings new from prior. There is may indicate developing unilateral infiltrate versus technical artifact. Consider follow-up with PA and lateral. Electronically signed by Xochitl Gandhi 01/04/2020 4:44 PM
[2020-01-04 16:56] LABS: HEMOGLOBIN 12.6 g/dL (14.0-18.0); MCH 24.1 PG (27-31); MCV 80.3 FL (81-99); MPV 12.7 FL (7.4-10.4); RBC 5.23 XMIL (4.7-6.1); WBC 24.41 X1000 (4.8-10.8)
[2020-01-04] MEDS: HUMULIN R 100 UNIT in NS 100 ML IV SCH (16:58)
[2020-01-04 17:00] LABS: BILIRUBIN URINE NEGATIVE (NEGATIVE); BLOOD URINE NEGATIVE (NEGATIVE); COLOR YELLOW; GLUCOSE URINE >1000 mg/dL (NEGATIVE); KETONE URINE 100 mg/dL (NEGATIVE); LEUKOCYTES URINE NEGATIVE (NEGATIVE); NITRITE URINE NEGATIVE (NEGATIVE); PROTEIN URINE 30 mg/dL (NEGATIVE); SP GRAVITY URINE 1.024; TURBIDITY URINE CLEAR (CLEAR); UROBILINOGEN URINE NORMAL (NORMAL)
[2020-01-04 17:03] LABS: UR EPITHELIAL CELLS <10 /HPF (<10); URINE BACTERIA NEGATIVE /HPF; URINE RBC <10 /HPF (<10); URINE WBC <10 /HPF (<10)
[2020-01-04 17:06] LABS: UR AMPHETAMINES QUAL PRESUMPTIVE POSITIVE (NONE DETECT); UR BARBITUATES QUAL NONE DETECTED (NONE DETECT); UR BENZODIAZEPIN QUAL NONE DETECTED (NONE DETECT); UR CANNABINOIDS QUAL NONE DETECTED (NONE DETECT); UR COCAINE QUAL NONE DETECTED (NONE DETECT); UR METHADONE QUAL NONE DETECTED (NONE DETECT); UR OPIATES QUAL NONE DETECTED (NONE DETECT); UR OXYCODONE QUAL NONE DETECTED (NONE DETECT); UR PCP QUAL NONE DETECTED (NONE DETECT)
--- NOTE | 2020-01-04 17:17 | Diag Imaging Result Doc PS360 ---
EXAM: CHEST-PORTABLE HISTORY: ETT placement TECHNIQUE: Single view of the chest was performed portably. COMPARISON: 01/04/2020 FINDINGS: There is an endotracheal tube in appropriate position. Mildly increased markings right lung persists. The cardiomediastinal silhouette is within normal limits. The pulmonary vasculature is not congested. IMPRESSION: Satisfactory endotracheal tube placement. Mildly increased right lung markings. Electronically signed by Xochitl Gandhi 01/04/2020 5:15 PM
[2020-01-04 17:18] LABS: ACETONE SERUM MODERATE (NEGATIVE)
[2020-01-04 17:21] LABS: AGAP 38; ALBUMIN 3.4 g/dL (3.5-5.0); ALKALINE PHOSPHATASE 116 U/L (32-122); BUN 34 mg/dL (8-22); CALCIUM 9.2 mg/dL (8.8-10.2); CHLORIDE 89 mmol/L (98-107); COSMO 312; CREATININE 2.1 mg/dL (0.7-1.2); ESTIMATED GFR 33; GOT 25 U/L (10-34); GPT 18 U/L (10-44); MAGNESIUM 2.5 mg/dL (1.5-2.7); PHOSPHORUS 8.6 mg/dL (2.7-4.5); SODIUM 134 mmol/L (136-145); TCO2 7 mmol/L (25-35); TOTAL BILIRUBIN 0.18 mg/dL (0.20-1.00); TOTAL PROTEIN 6.8 g/dL (6.3-8.3)
[2020-01-04 17:22] LABS: GLUCOSE 738 mg/dL (70-104); POTASSIUM 7.8 mmol/L (3.5-5.1)
[2020-01-04] MEDS ORDERED: CALCIUM GLUCONATE 4.65 MEQ in NS 50 ML IV ONE (17:32)
[2020-01-04] MEDS ORDERED: ALBUTEROL 0.5% INH CONC FOR HYPERKALEMIA INH ONE (17:36)
[2020-01-04] MEDS ORDERED: KAYEXALATE PR ONE (17:36)
[2020-01-04] MEDS ORDERED: ZOFRAN IV PRN (18:03)
[2020-01-04] MEDS ORDERED: TYLENOL PR PRN (18:04)
[2020-01-04 19:30] LABS: ALLEN TEST YES; BLOOD TYPE ARTERIAL; HCO3-(ACT) 11.7 mmoll (20.0-26.0); METHB 0.9 % (0.0-1.5); O2(CT) 15.7 mL/dL (15.0-23.0); O2HB 97.7 % (95.0-99.0); PCO2(98.6) 29 mmHg (35-45); PO2(98.6) 195 mmHg (60-100); SAMPLE BLOOD; SAO2 99.9 % (95.0-100.0); SRATE 12 BPM; THB 11.1 g/dL (11.5-17.4); TVOL 400 mL
[2020-01-04 19:33] LABS: MODALITY VENTILATOR; pH(98.6) 7.16 (7.35-7.45)
--- NOTE | 2020-01-04 19:53 | HISTORY AND PHYSICAL ---
CHIEF COMPLAINT: Dysphagia, shortness of breath, altered mental status. HISTORY OF PRESENT ILLNESS: A 54-year-old male with a past medical history of uncontrolled diabetes, dysphagia, status post EGD with dilation of the esophagus via [*] with biopsy on 12/01/2019, history of hepatitis C, previously. Also, hospitalized due to dysphagia, also previous DKA, acute kidney injury. He was discharged from this hospital on 12/09/2019, and as per the discharge summary, this patient also probably has a pulmonary embolism. At this time, he was brought but EMS. I am not quite sure if he called the service or somebody else did. When he presented to the emergency department, he was complaining of shortness of breath, confusion and swallowing problems. He became agitated and more encephalopathic. Laboratory showed a severe acidosis with a low pH of 7.1, and bicarbonate level of 6.9. He was intubated in the emergency department and at the moment of my physical evaluation, he was already intubated and sedated, we received the rest of the lab work that showed a WBC of 24.4, pH of 7.1 with a pCO2 of 11, and bicarb level of 6.9. Sodium level is 134, potassium 7.8. He is hypochloremic as well. Glucose level was elevated at 738. Lactate level is 3.7. BUN and creatinine elevated at 34 and 21. On my physical exam, this patient seems to be cachectic. His BMI 16.2. We noticed that the left side of the body, especially the left upper extremity and left lower extremity was having some color changes, some bluish coloration and coldness, he was cyanotic on that side, but after fluid resuscitation he got better. At this moment, he only has some hand cyanosis, mostly at the fingers, but I believe he is getting better. We are concerned about dissection, but this patient is too unstable to do any kind of procedure, he is in DKA. Acetone level is moderate. Anion gap is 38, he will be transferred to the ICU. He seems to be remarkably sick. If this patient gets better, we will get the paper plate machine tender to see if we need to do an another procedure and another esophageal dilation since this patient was complaining of dysphagia and he was not been eating for 3 days, apparently. In the other hand, he is severely dehydrated. We will give him enough fluids. We will monitor his in the lab work constantly. Actually, he will be in the DKA protocol in the ICU, telemetry. No family members at the bedside. He is hyperkalemic, and we will treat it. Again, this patient is remarkably sick. He is intubated. Electrolyte abnormality, DKA. He will be transferred to the ICU. We will monitor this patient closely. Pulmonary Department has been consulted. OBJECTIVE: Vital Signs: Pulse 117, respiratory rate 23, oxygen saturation 99 on mechanical ventilation. HEENT: Head normocephalic, no trauma. Poor dentition. Neck: Supple. No JVD. No masses. Central trachea. Chest: Decreased breath sounds at the bases with some crepitus. Abdomen: Soft. Actually you can palpate the abdominal aorta easily. I do not hear any bruit. Extremities: No edema. No clubbing. He has some cyanosis at the level of the left hand. His left lower extremity is about the same compared with the right lower extremity and it is not cyanotic anymore. Neurological: The patient is on mechanical ventilation and sedated. LABORATORY: WBC 24.4, hemoglobin 12.6, hematocrit 42, platelets 294.. PH 7.1, pCO2 11, PO2 122, bicarb 6.9. Sodium 134, potassium 7.8, chloride 89, bicarbonate 7, BUN 34, creatinine 2.1, glucose 738, calcium 9.2, magnesium 2.5, phosphorus 8.6. Troponin 51, albumin 3.4, plasma lactate 3.7, and the urine toxicology showed the possibility of amphetamine. REVIEW OF SYSTEM: Unable to obtain. PAST MEDICAL HISTORY: DKA, uncontrolled diabetes, esophageal stricture status post dilation a few weeks ago, protein calorie malnutrition, possible PE, but I do not have any studies showing that. History of hepatitis C. FAMILY HISTORY: Per previous H P. Mother of chronic obstructive pulmonary disease. His father when he was young, but we do not know why. HOME MEDICATIONS: Unable to obtain, but it looks like he was discharged home Suboxone, Coumadin, Ativan, Carafate, NicoDerm, NovoLog, and Prilosec. ASSESSMENT AND PLAN: 1. Diabetic ketoacidosis. This patient will be placed on the diabetic ketoacidosis protocol. We will monitor this patient closely. Lab work continuously, at least every 4 hours. He will be transferred to the intensive care unit. Insulin drip, fluid resuscitation. 2. Encephalopathy. He has been placed on mechanical ventilation and sedated. We will continue with same management. 3. Hyperkalemia. We will treat it. He will receive calcium. He will receive calcium gluconate. He will receive also Kayexalate. He is on insulin drip and albuterol inhaler. 4. Metabolic acidosis likely due to diabetic ketoacidosis. We will continue to monitor this closely. 5. Severe dehydration. We are giving him some fluid resuscitation with normal saline. We will monitor this closely as well. 6. Acute kidney injury. Looks likely due to severe dehydration, hopefully the kidney function will recover after giving him enough fluids. 7. Positive urine toxicology that showed amphetamine. Aware. 8. Dysphagia. His esophagus was recently dilated and apparently, he has not been able to eat for the past 3 days. Once he is more stable, we will get gastroenterology department to evaluate this patient. 9. Uncontrolled diabetes. I will ask for a hemoglobin A1c in the morning, but for now we will continue with the insulin drip. He has been having uncontrolled diabetes before. 10. History of hepatitis C. Ultrasound done on 12/07/2019 is basically normal. We will continue to monitor this closely and follow up with gastroenterology department likely as an outpatient. 11. History of pulmonary embolism. I am not quite sure about this diagnosis. He will he has been on warfarin but the ultrasound and the V/Q scan done last month were negative for any clots. So, I will put him on heparin twice a day, renally dose and monitor. 12. Left-sided body discoloration/cyanosis. This is getting better after getting some fluid resuscitation. His left lower extremity is the same compared with the right lower extremity and is warm. His hand is a little bit cold, but getting better. He is really unstable to do any kind of procedure at this moment, so we will monitor. The patient seems to be really unstable. He is remarkably sick. No family members at the bedside. He will be transferred to the intensive care unit. Pulmonary Department will evaluate this patient and take care of the mechanical ventilation. We will monitor this patient closely. Continue with the diabetic ketoacidosis protocol. cc: Yury Zamora MD
[2020-01-04 20:09] LABS: CALCIUM 8.7 mg/dL (8.8-10.2); CREATININE 2.1 mg/dL (0.7-1.2); MAGNESIUM 2.5 mg/dL (1.5-2.7); PHOSPHORUS 5.3 mg/dL (2.7-4.5); POTASSIUM 5.8 mmol/L (3.5-5.1)
[2020-01-04] MEDS: PROTONIX IV SCH (20:30)
[2020-01-04] MEDS: ZYVOX 600 MG/D5W 600 MG/300 ML IVPB IV SCH (21:37)
[2020-01-04] MEDS: HEPARIN SUBQ SCH (21:43)
[2020-01-04 22:28] LABS: ALLEN TEST YES; BE -11.8 mmoll (-3.0-3.0); BLOOD TYPE ARTERIAL; HCO3-(ACT) 15.7 mmoll (20.0-26.0); METHB 1.3 % (0.0-1.5); O2(CT) 13.4 mL/dL (15.0-23.0); O2HB 96.5 % (95.0-99.0); PCO2(98.6) 28 mmHg (35-45); PO2(98.6) 168 mmHg (60-100); SAMPLE BLOOD; SAO2 99.8 % (95.0-100.0); SRATE 12 BPM; THB 9.6 g/dL (11.5-17.4); TVOL 400 mL; pH(98.6) 7.29 (7.35-7.45)
[2020-01-04 22:32] LABS: MODALITY VENTILATOR
[2020-01-04 22:32] LABS: CALCIUM 8.4 mg/dL (8.8-10.2); MAGNESIUM 2.2 mg/dL (1.5-2.7); PHOSPHORUS 2.4 mg/dL (2.7-4.5); POTASSIUM 3.6 mmol/L (3.5-5.1)
[2020-01-04] MEDS: MAXIPIME 2 GM/NS 2 GM/100 ML IVPB IV SCH (23:48)
[2020-01-04] MEDS: NS 1,000 ML IV SCH (23:49)
[2020-01-05] MEDS: HUMULIN R 100 UNIT in NS 100 ML IV SCH ×2 (00:30→04:23)
[2020-01-05] MEDS: DIPRIVAN 1% 1,000 MG/100 ML BOTTLE IV SCH ×7 (00:56→22:50)
[2020-01-05 01:59] LABS: ALLEN TEST YES; BE -8.8 mmoll (-3.0-3.0); BLOOD TYPE ARTERIAL; HCO3-(ACT) 18.1 mmoll (20.0-26.0); METHB 1.1 % (0.0-1.5); O2(CT) 14.4 mL/dL (15.0-23.0); O2HB 97.5 % (95.0-99.0); PCO2(98.6) 38 mmHg (35-45); PO2(98.6) 277 mmHg (60-100); SAMPLE BLOOD; SAO2 100.1 % (95.0-100.0); SRATE 12 BPM; TVOL 400 mL; pH(98.6) 7.27 (7.35-7.45)
[2020-01-05 02:01] LABS: MODALITY VENTILATOR
[2020-01-05 02:52] LABS: CREATININE 1.9 mg/dL (0.7-1.2); MAGNESIUM 1.9 mg/dL (1.5-2.7); POTASSIUM 3.5 mmol/L (3.5-5.1)
[2020-01-05 04:47] LABS: ALLEN TEST YES; BE -7.9 mmoll (-3.0-3.0); BLOOD TYPE ARTERIAL; HCO3-(ACT) 18.8 mmoll (20.0-26.0); METHB 0.9 % (0.0-1.5); O2(CT) 14.7 mL/dL (15.0-23.0); O2HB 97.7 % (95.0-99.0); PCO2(98.6) 35 mmHg (35-45); PO2(98.6) 195 mmHg (60-100); SAMPLE BLOOD; SRATE 12 BPM; THB 10.4 g/dL (11.5-17.4); TVOL 400 mL; pH(98.6) 7.31 (7.35-7.45)
[2020-01-05 04:48] LABS: MODALITY VENTILATOR
[2020-01-05] MEDS: NS 1,000 ML IV SCH (04:55)
[2020-01-05] MEDS: ZYVOX 600 MG/D5W 600 MG/300 ML IVPB IV SCH ×2 (05:30→17:37)
[2020-01-05] MEDS ORDERED: D5 NS 1,000 ML IV SCH (06:30)
[2020-01-05 06:53] LABS: AGAP 12; ALB/GLOB RATIO 0.9; ALBUMIN 2.4 g/dL (3.5-5.0); ALKALINE PHOSPHATASE 80 U/L (32-122); BUN 32 mg/dL (8-22); CHLORIDE 112 mmol/L (98-107); COSMO 298; CREATININE 1.7 mg/dL (0.7-1.2); ESTIMATED GFR 42; GLUCOSE 205 mg/dL (70-104); GOT 12 U/L (10-34); GPT 13 U/L (10-44); MAGNESIUM 1.9 mg/dL (1.5-2.7); POTASSIUM 3.2 mmol/L (3.5-5.1); SODIUM 143 mmol/L (136-145); TCO2 19 mmol/L (25-35); TOTAL BILIRUBIN < 0.15 mg/dL (0.20-1.00); TOTAL PROTEIN 5.1 g/dL (6.3-8.3)
[2020-01-05 06:57] LABS: EOS# 0.01 X1000 (0.0-0.7); EOS% 0.2 % (0.0-10.0); HEMATOCRIT 32.3 % (42.0-52.0); LYMPH# 0.34 X1000 (1.2-3.4); MCH 24.2 PG (27-31); MONO# 0.37 X1000 (0.11-0.59); MONO% 8.7 % (1.7-9.3); NEUT# 3.53 X1000 (1.4-6.5); NEUT% 83.1 % (42.2-75.2); PLT 176 X1000 (130-400); RBC 4.14 XMIL (4.7-6.1); RDW 16.2 % (11.5-14.5); WBC 4.25 X1000 (4.8-10.8)
[2020-01-05 07:12] LABS: HEMOGLOBIN A1C 9.8 % (4.8-6.0)
--- NOTE | 2020-01-05 07:21 | Diag Imaging Result Doc PS360 ---
EXAM: CHEST-PORTABLE 01/05/2020 HISTORY: Resp Failure TECHNIQUE: AP portable at 0512 COMMENT: There is an endotracheal tube with its tip slightly below the thoracic inlet. There is ill-defined opacity in the perihilar portion of the right lung which was also present on 01/04/2020. IMPRESSION: Mild right bronchopneumonia. Electronically signed by Anil Gilliam 01/05/2020 7:18 AM
[2020-01-05 07:52] LABS: INR 1.27; PROTIME 16.1 Seconds (11.0-16.0)
--- NOTE | 2020-01-05 08:22 | EKG Report ---
Test Performed on : 01/05/2020 07:38:12 AM Test Reason : dka Blood Pressure : / mmHG Vent. Rate : 085 BPM Atrial Rate : 085 BPM P-R Int : 110 ms QRS Dur : 096 ms QT Int : 372 ms P-R-T Axes : 068 067 056 degrees QTc Int : 442 ms Sinus rhythm. with short CO Nonspecific ST and T wave abnormality Abnormal ECG When compared with ECG of 04-JAN-2020 14:10, (Unconfirmed) Non-specific change in ST segment in Inferior leads Non-specific change in ST segment in Lateral leads Nonspecific T wave abnormality now evident in Inferior leads Confirmed by Harley Fernandez MD ([id number]) on 01/05/2020 8:20:32 PM
--- NOTE | 2020-01-05 08:42 | PROGRESS NOTE ---
DATE: 01/05/2020 SUBJECTIVE: The patient is still on mechanical ventilation and sedated. Vital signs seem to be more stable. Laboratory seems to be improving, and actually the gap is closed, but he is still acidotic, and he is still on mechanical ventilation. This patient is not able to eat because of his severe dysphagia, so I will keep him 1 more day with the insulin drip, and monitor this patient closely in the ICU. His BUN and creatinine are getting better as well. Urine output for the past 8 hours is around 450 mL, which is around 50 mL/h, so I will continue with the same management for now. OBJECTIVE: Vital Signs: Temperature 97.5 degrees, pulse 86, respiratory rate 17, blood pressure 115/64, oxygen saturation 100% on mechanical ventilation. HEENT: Head normocephalic. No trauma. PERRLA. Neck: Supple. No JVD. No masses. Central trachea. Chest: Clear to auscultation. Some crepitus and rhonchi at the right base. Abdomen: Soft, nontender, nondistended. No hepatosplenomegaly. Extremities: His hands are cold, especially the left hand, with a little bit of cyanotic changes, but better compared with yesterday definitely. Lower extremities with no edema, no clubbing, no cyanosis at all. Neurological: The patient is on mechanical ventilation and sedated. LABORATORY DATA: WBC 4.2, hemoglobin 10, hematocrit 32.3, platelets 176,000. Sodium 143, potassium 3.2, chloride 112, bicarbonate 19, BUN 32, creatinine 1.7, glucose 205, calcium 8. Phosphorus 2.4. Hemoglobin A1c 9.8. Albumin 2.4. ASSESSMENT AND PLAN: 1. Diabetic ketoacidosis. This is much better. I will continue with the protocol because he is still on mechanical ventilation, he is still acidotic, and he is not able to eat. I will continue taking care of this patient in the intensive care unit. Continue with fluid resuscitation. 2. Encephalopathy. He is on mechanical ventilation. Continue with the same management. 3. Hyperkalemia, resolved. 4. Severe dehydration. He seems to be more euvolemic at this moment. Continue with intravenous fluids. 5. Acute kidney injury, likely due to severe dehydration. Kidney function is getting better slowly. He has adequate urine output so far. 6. Positive urine toxicology that showed amphetamine. Aware. 7. Dysphagia. His esophagus was recently dilated, and apparently he has not been able to eat for at least 3 days. Once he is more stable and extubated, we will get Gastroenterology Department to evaluate this patient. 8. Severe protein calorie malnutrition. I will put this patient on Clinimix and some lipids for now. 9. Uncontrolled diabetes. Hemoglobin A1c is 9.8, and actually dropped from his previous hospitalization, previously was 11.5. 10. History of hepatitis C. Ultrasound done on 12/07/2019 is basically normal. Continue to monitor this closely, and follow up with Gastroenterology Department as an outpatient. 11. History of pulmonary embolism. I am not quite sure about this diagnosis. He has been on warfarin, but the ultrasound of the lower extremities and V/Q scan done last month were negative for any clots, so will continue with heparin twice a day, renally dosed to prevent a clot. 12. Left-sided body cyanosis. This is much better compared with yesterday. Continue with the same management. His left hand is still a little bit cold though. CRITICAL CARE TIME: 32 minutes. cc: Yury Zamora MD
[2020-01-05] MEDS ORDERED: LIPOSYN 20% 250 ML IV SCH (09:00)
[2020-01-05] MEDS: CLINIMIX E 4.25%-5% SOLUTION 1,000 ML IV SCH (09:15)
[2020-01-05] MEDS: HEPARIN SUBQ SCH (09:16)
[2020-01-05] MEDS: MAXIPIME 2 GM/NS 2 GM/100 ML IVPB IV SCH ×2 (09:16→20:12)
[2020-01-05] MEDS: D5 NS 1,000 ML IV SCH ×2 (09:17→17:38)
[2020-01-05 10:11] LABS: CALCIUM 8.2 mg/dL (8.8-10.2); CREATININE 1.7 mg/dL (0.7-1.2); MAGNESIUM 1.8 mg/dL (1.5-2.7); POTASSIUM 3.6 mmol/L (3.5-5.1)
[2020-01-05] MEDS: POTASSIUM CHLORIDE 20 MEQ/SWI 20 MEQ/100 ML IVPB IV PRN ×3 (11:00→21:31)
[2020-01-05 15:28] LABS: CALCIUM 8.1 mg/dL (8.8-10.2); CREATININE 1.6 mg/dL (0.7-1.2); MAGNESIUM 1.8 mg/dL (1.5-2.7); POTASSIUM 3.9 mmol/L (3.5-5.1)
[2020-01-05] MEDS: SODIUM CHLORIDE 0.9% INJ SCH (17:37)
[2020-01-05] MEDS: PROTONIX IV SCH (17:37)
[2020-01-05] MEDS ORDERED: ALBUMIN 25% IV ONE (18:00)
[2020-01-05] MEDS ORDERED: NS 1,000 ML IV ONE (18:00)
[2020-01-05 19:56] LABS: CALCIUM 7.8 mg/dL (8.8-10.2); CREATININE 1.5 mg/dL (0.7-1.2); MAGNESIUM 1.6 mg/dL (1.5-2.7); POTASSIUM 4.2 mmol/L (3.5-5.1)
--- NOTE | 2020-01-05 20:11 | PULMONOLOGY CONSULTATION ---
DATE: 01/05/2020 REQUESTING PROVIDER: Yury Zamora MD REASON FOR CONSULTATION: Intubated, diabetic ketoacidosis, encephalopathy. HISTORY OF PRESENT ILLNESS: This is a 54-year-old male with a medical history of uncontrolled diabetes mellitus type 2, hepatitis C, chronic kidney disease, dysphagia with esophageal stricture and esophagitis, history of probable left-sided DVT, IV drug abuse and tobacco abuse. His last admission was from 11/28/2019 to 12/09/2019 with uncontrolled diabetes, dysphagia, pulmonary embolism and altered mental status. He presented to the ER yesterday afternoon with shortness of breath, increased blood sugar and swallowing problem without eating or drinking for 3 days. Initial ABG showing severe metabolic acidosis with pH 7.13 and pCO2 at 11. The patient also became more and more agitated. He was eventually intubated for airway protection. Other lab work revealed leukocytosis, lactic acidosis, hyperglycemia, acute kidney injury and toxicology showed positive for amphetamine with moderate acetone level. The patient is currently still intubated and sedated with Diprivan drip. There is no family at the bedside. All other information is obtained from the E-chart. PAST MEDICAL AND SURGICAL HISTORY: 1. Diabetes mellitus type 2, uncontrolled 2. 2. Hepatitis C. 3. Chronic kidney disease, stage II. 4. Dysphagia with esophageal stricture and esophagitis status post EGD with dilation of esophagus over a guidewire and biopsy on 12/01/2019 and EGD on 08/18/2014. 5. History of probable left-sided DVT in August 2014. 6. IV drug abuse. 7. Tobacco abuse. 8. Tonsillectomy. SOCIAL HISTORY: Per the record from patient's last admission, he smokes 1 pack per day since age of 18, has been cutting down last October. He has history of alcohol use and quit drinking about 1 year ago. He smokes marijuana once a month. He used IV methamphetamines. He lives at home with a common-law . FAMILY HISTORY: Positive for COPD, diabetes mellitus type 2 and coronary artery disease. ALLERGIES: No known drug allergies. REVIEW OF SYSTEMS: Unable to be obtained. PHYSICAL EXAMINATION: Vital Signs: Temperature 98.0 degrees, blood pressure 101/62, pulse 83, respiratory rate 19, oxygen saturation 100% on mechanical ventilator with spontaneous rate of 12, FiO2 50%, tidal volume 400 and PEEP 5. General: Chronically ill-appearing, intubated, sedated. No acute distress noted. HEENT: Atraumatic, normocephalic. Trachea midline. ET tube in place. Mucosa pink and slightly dry. Respiratory: Mechanically ventilated. Symmetrical excursion. Auscultation revealed diminished breathing sounds bilaterally with right side worse than the left side. Cardiovascular: Regular rate and rhythm with S1 and S2 appreciated. Gastrointestinal: Soft, nondistended. Normoactive bowel sounds in all 4 quadrants. Extremities: No pedal edema. No cyanosis. No clubbing. Neurologic: Sedated. LABORATORY DATA: White blood cell 4.25, hemoglobin 10.0, hematocrit 32.3, platelets 176,000. Sodium 143, potassium 3.2, chloride 112, carbon dioxide 19, BUN 32, creatinine 1.7, glucose 205. ABG: pH 7.31, pCO2 35, pO2 195, HCO3 18.8, base excess -7.9, oxyhemoglobin 97.7, lactate 3.40 on AC ventilator with spontaneous rate of 12, FiO2 50%, tidal volume 400 and PEEP 5. IMAGING DATA: Chest x-ray today showed ill-defined opacity in perihilar portion of the right lung suggesting mild right bronchial pneumonia. ASSESSMENT: This is a 54-year-old male with a medical history of uncontrolled diabetes mellitus type 2, hepatitis C, chronic kidney disease, dysphagia, history of probable left-sided DVT, IV drug abuse, tobacco abuse, and recent pulmonary emboli. He has been admitted to the ICU with DKA, encephalopathy, acute kidney injury, hyperkalemia, and metabolic acidosis. 1. Acute respiratory failure, requiring intubation secondary to diabetic ketoacidosis and secondary to severe metabolic acidosis and altered mental status. 2. Bronchopneumonia. 3. Diabetic ketoacidosis, improving. 4. Encephalopathy. 5. Acute kidney injury, slight improvement this morning. 6. Metabolic acidosis secondary to diabetic ketoacidosis. 7. Anion gap metabolic acidosis, resolved based on the lab from this morning. The patient still has non-anion gap metabolic acidosis. 8. Recent pulmonary emboli, two apparent small pulmonary emboli at right lower lobe pulmonary arterial branches identified by CT thorax with contrast on 12/02/2019 but not identified by lung scan V/Q. 9. Tobacco and marijuana use. PLAN: 1. Continue AC mechanical ventilator. We checked ventilation and titrated to the patient's needs for clinical protocols. We will keep closely monitoring patient's clinical response. 2. We titrated Diprivan drip to the patient's needs per clinical protocols. We will keep closely monitoring patient's clinical response. 3. Antibiotics cefepime and linezolid have been ordered. 4. Continued GI and DVT prophylaxis. 5. We will start tobacco cessation education when appropriate. 6. Further recommendations pending hospital course. Thank you for the courtesy of this consult. Dr. Camp did the evaluation, examination, management and orders. COURTNEY did the dictation for Dr. Camp according to his direction. Total evaluation time in minutes: 34. Dictated by COURTNEY Werner for Wong Camp MD cc: COURTNEY Werner MD [facility]
[2020-01-05] MEDS: LOVENOX SUBQ SCH (20:12)
[2020-01-05 23:55] LABS: CREATININE 1.4 mg/dL (0.7-1.2); MAGNESIUM 1.9 mg/dL (1.5-2.7); POTASSIUM 4.1 mmol/L (3.5-5.1)
[2020-01-06] MEDS: DIPRIVAN 1% 1,000 MG/100 ML BOTTLE IV SCH ×6 (02:51→23:42)
[2020-01-06 02:58] LABS: CALCIUM 8.1 mg/dL (8.8-10.2); CREATININE 1.3 mg/dL (0.7-1.2); MAGNESIUM 2.1 mg/dL (1.5-2.7); POTASSIUM 4.7 mmol/L (3.5-5.1)
[2020-01-06 04:30] LABS: ALLEN TEST YES; BE -9.6 mmoll (-3.0-3.0); BLOOD TYPE ARTERIAL; HCO3-(ACT) 17.4 mmoll (20.0-26.0); METHB 1.4 % (0.0-1.5); O2(CT) 13.7 mL/dL (15.0-23.0); O2HB 96.8 % (95.0-99.0); PCO2(98.6) 36 mmHg (35-45); PO2(98.6) 135 mmHg (60-100); SAMPLE BLOOD; SAO2 99.8 % (95.0-100.0); SRATE 12 BPM; THB 9.9 g/dL (11.5-17.4); TVOL 400 mL; pH(98.6) 7.27 (7.35-7.45)
[2020-01-06 04:32] LABS: MODALITY VENTILATOR
[2020-01-06] MEDS: ZYVOX 600 MG/D5W 600 MG/300 ML IVPB IV SCH ×2 (05:39→18:36)
[2020-01-06] MEDS: D5 NS 1,000 ML IV SCH (05:39)
--- NOTE | 2020-01-06 05:48 | Diag Imaging Result Doc PS360 ---
EXAM: CHEST-PORTABLE HISTORY: dyspnea TECHNIQUE: Two views COMPARISON: 01/05/2020 FINDINGS: The lungs are well expanded. No change in the endotracheal tube. No cardiomegaly. Patchy infiltrates in the right lung persist. These are slightly more prominent in the lung base. The left lung remains clear. IMPRESSION: Mild interval worsening Electronically signed by Antonio Acevedo 01/06/2020 5:46 AM
[2020-01-06 06:34] LABS: AGAP 11; BUN 28 mg/dL (8-22); CALCIUM 7.9 mg/dL (8.8-10.2); CHLORIDE 115 mmol/L (98-107); COSMO 290; CREATININE 1.2 mg/dL (0.7-1.2); ESTIMATED GFR > 60; GLUCOSE 129 mg/dL (70-104); MAGNESIUM 2.1 mg/dL (1.5-2.7); POTASSIUM 4.4 mmol/L (3.5-5.1); SODIUM 142 mmol/L (136-145); TCO2 16 mmol/L (25-35)
[2020-01-06 06:38] LABS: BASO# 0.01 X1000 (0.0-0.2); BASO% 0.2 % (0.0-0.8); EOS# 0.14 X1000 (0.0-0.7); EOS% 3.3 % (0.0-10.0); HEMATOCRIT 28.7 % (42.0-52.0); HEMOGLOBIN 8.8 g/dL (14.0-18.0); IMM GRAN# 0.02 X1000 (0.0-0.04); IMM GRAN% 0.5 % (0.0-0.5); LYMPH# 0.49 X1000 (1.2-3.4); LYMPH% 11.6 % (20.5-51.1); MCH 24.3 PG (27-31); MCHC 30.7 g/dL (33-37); MCV 79.3 FL (81-99); MONO# 0.34 X1000 (0.11-0.59); MONO% 8.1 % (1.7-9.3); MPV 10.1 FL (7.4-10.4); NEUT# 3.21 X1000 (1.4-6.5); NEUT% 76.3 % (42.2-75.2); PLT 98 X1000 (130-400); RBC 3.62 XMIL (4.7-6.1); RDW 16.6 % (11.5-14.5); WBC 4.21 X1000 (4.8-10.8)
[2020-01-06] MEDS: 1/2 NS 1,000 ML IV SCH ×2 (09:15→18:36)
--- NOTE | 2020-01-06 09:23 | PROGRESS NOTE ---
DATE: 01/06/2020 SUBJECTIVE: This patient is still on mechanical ventilation and sedated. Vital signs are stable. I will stop the insulin drip, and I will put him on long-acting insulin. His kidney function is getting better even though his urine output is low, but I will monitor. I will continue with IV fluids. I will try to put an NG tube and start feeding this patient, I have requested an evaluation by the dietitian as well. Lipids have been stopped. OBJECTIVE: Vital Signs: Temperature 98 degrees, pulse 74, respiratory rate 17, blood pressure 103/59, and oxygen saturation 100% on mechanical ventilation. HEENT: Head normocephalic. No trauma. PERRLA. Neck: Supple. No JVD. No masses. Central trachea. Chest: Decreased breath sounds at the bases with some rhonchi and crepitus on the right base. Abdomen: Soft, not distended. Extremities: His hands are cold especially the left hand with a little bit of cyanotic changes, but better compared with admission. Lower extremities with no edema. No clubbing. No cyanosis. Neurological: The patient is on mechanical ventilation and sedated. LABORATORY: WBC 4.2, hemoglobin 9.8, hematocrit 28.7, and platelet count 98,000. Sodium 142, potassium 4.4, chloride 115, bicarbonate 16, BUN 28, creatinine 1.2, glucose 129, calcium 7.9, phosphorus 1.8, and magnesium 2.1. ASSESSMENT AND PLAN: 1. Diabetic ketoacidosis, resolved. I will stop the insulin drip and put him on long-acting insulin and sliding scale insulin as well. This patient is still on mechanical ventilation so we will monitor this patient closely. 2. Encephalopathy. He is on mechanical ventilation. Continue with same management. 3. Hyperkalemia resolved. 4. Severe dehydration. He seems to be more euvolemic at this moment. Continue with IV fluids. 5. Acute kidney injury. His creatinine is getting better. His BUN is better as well compared with admission, but the urine output is still low. I will continue with same management for now and keep an eye on him. 6. Positive urine toxicology that showed amphetamines, aware. 7. Dysphagia. I will try to place an NG tube because I need to start feeding this patient. Once this patient is more stable. I will get Gastroenterology Department to evaluate this patient, and probably do esophageal dilation. He has been recently dilated. 8. Severe protein calorie malnutrition, I will try to put an NG tube. He is on Clinimix right now. 9. Uncontrolled diabetes. Hemoglobin A1c is 9.8. He came in with DKA which has resolved. I will put this patient on long-acting and short-acting insulin. 10. History of hepatitis C. An ultrasound done on 12/07/2019 basically is normal. We will continue to monitor this closely. Gastroenterology Department will follow this patient as an outpatient. 11. History of pulmonary embolism. I will continue with anticoagulation for now. 12. Left-sided body cyanosis. This is much better, but he still has some mild hand cyanotic changes. Both hands are a little bit cold. TIME SPENT: Critical care time 35 minutes. cc: Yury Zamora MD
[2020-01-06] MEDS: LANTUS INSULIN SUBQ SCH (09:29)
[2020-01-06] MEDS: CLINIMIX E 4.25%-5% SOLUTION 1,000 ML IV SCH (09:30)
[2020-01-06] MEDS: LOVENOX SUBQ SCH ×2 (09:30→21:27)
[2020-01-06] MEDS: MAXIPIME 2 GM/NS 2 GM/100 ML IVPB IV SCH ×2 (09:32→21:27)
--- NOTE | 2020-01-06 10:59 | Diag Imaging Result Doc PS360 ---
EXAM: CHEST/ABD TUBE PLACEMENT HISTORY: OG tube placement verification TECHNIQUE: Chest abdomen COMPARISON: 5:14 AM FINDINGS: A nasogastric tube has been placed since the prior study. This overlies the esophagus and stomach. The tip is angled superiorly along the greater curvature. Electronically signed by Antonio Acevedo 01/06/2020 10:57 AM
[2020-01-06] MEDS: HUMULIN R SUBQ SCH ×3 (11:00→21:26)
--- NOTE | 2020-01-06 11:53 | VASCULAR LAB ---
PROCEDURE NAME: Arterial Bilateral Legs - 01/05/2020 REQUESTING PROVIDER: COURTNEY Gavin. INDICATIONS: Decreased flow. FINDINGS: Segmental pressures are as follows: Right brachial not measured, left 100; right proximal thigh 130, left 132; right distal thigh 116, left 120; right popliteal 102, left 105; right dorsalis pedis 101, left 101; right posterior tibial 100, left 101; right great toe not measured, left not measured; right MALCOLM 1.01, left 1.01. WAVEFORM ANALYSIS: Waveforms appear to be intact to the level of the ankles bilaterally. There is no waveforms essentially noted to any of the toes. INTERPRETATION: Perfusion noted bilaterally to the ankles, but there is no waveforms noted to either foot as far as the toes are concerned. This likely suggest distal small vessel disease. The patient will likely benefit from CT angiography. cc: Ld Ibrahim MD
--- NOTE | 2020-01-06 11:54 | VASCULAR LAB ---
PROCEDURE NAME: Arterial Bilateral Arms - 01/05/2020 UPPER EXTREMITY ARTERIAL STUDY: REQUESTING PHYSICIAN: Nicholas. DRAIN LAYER: Juno. INDICATION: Left hand cyanosis. FINDINGS: Segmental pressures are as follows. Right upper arm not measured, left 93. Right ulnar artery 99, left 104. Right radial artery 106, left 107. Right index finger not measured, left not measured. Waveform analysis: The proximal side on the right side is not measured secondary to a PICC line. There is pulsatility noted at the wrist, but no pulsatility noted at the right finger. On the left side, there is pulsatility noted to the wrist, but essentially no pulsatility noted to any of the fingers measured. The left side is very similar. There is pulsatility noted to the level of the wrist, but no flow or pulsatility noted distally. INTERPRETATION: Flow noted to the wrist, but no flow noted to the fingers bilaterally. This suggests at least distal peripheral small-vessel disease. The patient may benefit from CT angiography. cc: Ld Ibrahim MD
[2020-01-06] MEDS ORDERED: SODIUM PHOSPHATE 15 MMOL in NS 250 ML IV ONE (14:28)
[2020-01-06] MEDS ORDERED: REGLAN IV ONE (14:44)
[2020-01-06] MEDS: DULCOLAX PR SCH ×2 (15:45→21:26)
[2020-01-06] MEDS: D50W SYRINGE IV PRN (16:47)
[2020-01-06] MEDS: PROTONIX IV SCH (18:35)
[2020-01-06 18:46] LABS: AGAP 10; BUN 24 mg/dL (8-22); CALCIUM 7.9 mg/dL (8.8-10.2); CHLORIDE 109 mmol/L (98-107); COSMO 279; ESTIMATED GFR > 60; GLUCOSE 151 mg/dL (70-104); MAGNESIUM 2.1 mg/dL (1.5-2.7); PHOSPHORUS 2.6 mg/dL (2.7-4.5); POTASSIUM 4.4 mmol/L (3.5-5.1); SODIUM 136 mmol/L (136-145); TCO2 17 mmol/L (25-35)
--- NOTE | 2020-01-06 23:41 | PROVIDER PROGRESS NOTE ---
Progress Note Dr. Camp Progress Note/Pulmonary and or critical care Subjective: The patient stays intubated and sedated. He just had NG tube placed and NG tube suctioning is on now. There is over 500cc of green gastric content in the suctioning container noted. No family at the bedside. Input is appreciated from Dr. Shabazz and other teams on the case. Objective: Vital Signs: T 97.7 (no fever in last 24 hours), MI 71, RR 33, BP 100/59 and SaO2 100% on AC 12, 40%, 400, 5. I/O: +5498ml. Physical Examination: General: Intubated. No acute distress noted. HEENT: Normocephalic. Trachea midline. ET tube in place. Mucosa pink and slightly dry. Chest: Tachypnea. Mechanically ventilated. Symmetrical excursion. Good air entry coarse breathing sound bilaterally. CVS: S1 and S2 appreciated. Abdomen: Soft. Non-distended. Normoactive bowel sounds in all 4 quadrants. Extremities: No pedal edema. No clubbing. LUE on a heat pack with erythema. RUE mildly cyanotic. Neuro: Sedated. Labs and Radiology: Laboratory Results 01/05/20 01/05/20 01/06/20 23:00 23:00 00:04 WBC RBC Hgb Hct MCV MCH MCHC RDW Std Deviation Plt Count MPV Immature Gran % (Auto) Neut % (Auto) Lymph % (Auto) [place] % (Auto) Eos % (Auto) Baso % (Auto) Immature Gran # (Auto) Neut # (Auto) Lymph # (Auto) [place] # (Auto) Eos # (Auto) Baso # (Auto) Specimen Type Sample Site pH pCO2 pO2 HCO3 Base Excess Oxyhemoglobin ABG O2 Sat (Calculated) ABG O2 Saturation ABG Carboxyhemoglobin ABG Methemoglobin Edvin Test A-a O2 Difference Total Hemoglobin Lactate Blood Gas Modality Vent Mode Spontaneous Rate FiO2 % Tidal Volume PEEP Sodium 142 Potassium 4.1 Chloride 115 H Carbon Dioxide 16 L Anion Gap 11 BUN 28 H Creatinine 1.4 H Estimated GFR/1.73 m2 53 BUN/Creatinine Ratio 20 Glucose 127 H POC Glucose 56 L D Calculated Osmolality 290 Calcium 8.0 L Phosphorus 2.0 L Magnesium 1.9 01/06/20 01/06/20 01/06/20 00:08 00:39 00:40 WBC RBC Hgb Hct MCV MCH MCHC RDW Std Deviation Plt Count MPV Immature Gran % (Auto) Neut % (Auto) Lymph % (Auto) [place] % (Auto) Eos % (Auto) Baso % (Auto) Immature Gran # (Auto) Neut # (Auto) Lymph # (Auto) [place] # (Auto) Eos # (Auto) Baso # (Auto) Specimen Type Sample Site pH pCO2 pO2 HCO3 Base Excess Oxyhemoglobin ABG O2 Sat (Calculated) ABG O2 Saturation ABG Carboxyhemoglobin ABG Methemoglobin Edvin Test A-a O2 Difference Total Hemoglobin Lactate Blood Gas Modality Vent Mode Spontaneous Rate FiO2 % Tidal Volume PEEP Sodium Potassium Chloride Carbon Dioxide Anion Gap BUN Creatinine Estimated GFR/1.73 m2 BUN/Creatinine Ratio Glucose POC Glucose 70 50 L 69 L Calculated Osmolality Calcium Phosphorus Magnesium 01/06/20 01/06/20 01/06/20 00:57 01:00 01:19 WBC RBC Hgb Hct MCV MCH MCHC RDW Std Deviation Plt Count MPV Immature Gran % (Auto) Neut % (Auto) Lymph % (Auto) [place] % (Auto) Eos % (Auto) Baso % (Auto) Immature Gran # (Auto) Neut # (Auto) Lymph # (Auto) [place] # (Auto) Eos # (Auto) Baso # (Auto) Specimen Type Sample Site pH pCO2 pO2 HCO3 Base Excess Oxyhemoglobin ABG O2 Sat (Calculated) ABG O2 Saturation ABG Carboxyhemoglobin ABG Methemoglobin Edvin Test A-a O2 Difference Total Hemoglobin Lactate Blood Gas Modality Vent Mode Spontaneous Rate FiO2 % Tidal Volume PEEP Sodium Potassium Chloride Carbon Dioxide Anion Gap BUN Creatinine Estimated GFR/1.73 m2 BUN/Creatinine Ratio Glucose POC Glucose 29 L D 60 L D 74 Calculated Osmolality Calcium Phosphorus Magnesium 01/06/20 01/06/20 01/06/20 02:00 02:06 02:11 WBC RBC Hgb Hct MCV MCH MCHC RDW Std Deviation Plt Count MPV Immature Gran % (Auto) Neut % (Auto) Lymph % (Auto) [place] % (Auto) Eos % (Auto) Baso % (Auto) Immature Gran # (Auto) Neut # (Auto) Lymph # (Auto) [place] # (Auto) Eos # (Auto) Baso # (Auto) Specimen Type Sample Site pH pCO2 pO2 HCO3 Base Excess Oxyhemoglobin ABG O2 Sat (Calculated) ABG O2 Saturation ABG Carboxyhemoglobin ABG Methemoglobin Edvin Test A-a O2 Difference Total Hemoglobin Lactate Blood Gas Modality Vent Mode Spontaneous Rate FiO2 % Tidal Volume PEEP Sodium Potassium Chloride Carbon Dioxide Anion Gap BUN Creatinine Estimated GFR/1.73 m2 BUN/Creatinine Ratio Glucose POC Glucose 63 L 37 L 109 H D Calculated Osmolality Calcium Phosphorus Magnesium 01/06/20 01/06/20 01/06/20 02:15 02:15 03:13 WBC RBC Hgb Hct MCV MCH MCHC RDW Std Deviation Plt Count MPV Immature Gran % (Auto) Neut % (Auto) Lymph % (Auto) [place] % (Auto) Eos % (Auto) Baso % (Auto) Immature Gran # (Auto) Neut # (Auto) Lymph # (Auto) [place] # (Auto) Eos # (Auto) Baso # (Auto) Specimen Type Sample Site pH pCO2 pO2 HCO3 Base Excess Oxyhemoglobin ABG O2 Sat (Calculated) ABG O2 Saturation ABG Carboxyhemoglobin ABG Methemoglobin Edvin Test A-a O2 Difference Total Hemoglobin Lactate Blood Gas Modality Vent Mode Spontaneous Rate FiO2 % Tidal Volume PEEP Sodium 140 Potassium 4.7 Chloride 114 H Carbon Dioxide 17 L Anion Gap 9 BUN 27 H Creatinine 1.3 H Estimated GFR/1.73 m2 58 BUN/Creatinine Ratio 21 Glucose 128 H POC Glucose 131 H Calculated Osmolality 286 Calcium 8.1 L Phosphorus 1.9 L Magnesium 2.1 01/06/20 01/06/20 01/06/20 04:14 04:20 04:40 WBC 4.21 L RBC 3.62 L Hgb 8.8 L Hct 28.7 L MCV 79.3 L MCH 24.3 L MCHC 30.7 L RDW Std Deviation 16.6 H Plt Count 98 L D MPV 10.1 Immature Gran % (Auto) 0.5 Neut % (Auto) 76.3 H Lymph % (Auto) 11.6 L [place] % (Auto) 8.1 Eos % (Auto) 3.3 Baso % (Auto) 0.2 Immature Gran # (Auto) 0.02 Neut # (Auto) 3.21 Lymph # (Auto) 0.49 L [place] # (Auto) 0.34 Eos # (Auto) 0.14 Baso # (Auto) 0.01 Specimen Type ARTERIAL Sample Site R RADIAL pH 7.27 L pCO2 36 pO2 135 H HCO3 17.4 L Base Excess -9.6 L Oxyhemoglobin 96.8 ABG O2 Sat (Calculated) 13.7 L ABG O2 Saturation 99.8 ABG Carboxyhemoglobin 1.60 ABG Methemoglobin 1.4 Edvin Test YES A-a O2 Difference 105.0 Total Hemoglobin 9.9 L Lactate 0.90 Blood Gas Modality VENTILATOR Vent Mode A/C PC Spontaneous Rate 12 FiO2 % 40.0 Tidal Volume 400 PEEP 5.0 Sodium Potassium Chloride Carbon Dioxide Anion Gap BUN Creatinine Estimated GFR/1.73 m2 BUN/Creatinine Ratio Glucose POC Glucose 124 H Calculated Osmolality Calcium Phosphorus Magnesium 01/06/20 01/06/20 01/06/20 04:40 04:40 05:29 WBC RBC Hgb Hct MCV MCH MCHC RDW Std Deviation Plt Count MPV Immature Gran % (Auto) Neut % (Auto) Lymph % (Auto) [place] % (Auto) Eos % (Auto) Baso % (Auto) Immature Gran # (Auto) Neut # (Auto) Lymph # (Auto) [place] # (Auto) Eos # (Auto) Baso # (Auto) Specimen Type Sample Site pH pCO2 pO2 HCO3 Base Excess Oxyhemoglobin ABG O2 Sat (Calculated) ABG O2 Saturation ABG Carboxyhemoglobin ABG Methemoglobin Edvin Test A-a O2 Difference Total Hemoglobin Lactate Blood Gas Modality Vent Mode Spontaneous Rate FiO2 % Tidal Volume PEEP Sodium 142 Potassium 4.4 Chloride 115 H Carbon Dioxide 16 L Anion Gap 11 BUN 28 H Creatinine 1.2 Estimated GFR/1.73 m2 > 60 BUN/Creatinine Ratio 23 Glucose 129 H POC Glucose 104 Calculated Osmolality 290 Calcium 7.9 L Phosphorus 1.8 L Magnesium 2.1 01/06/20 01/06/20 01/06/20 06:09 08:29 09:59 WBC RBC Hgb Hct MCV MCH MCHC RDW Std Deviation Plt Count MPV Immature Gran % (Auto) Neut % (Auto) Lymph % (Auto) [place] % (Auto) Eos % (Auto) Baso % (Auto) Immature Gran # (Auto) Neut # (Auto) Lymph # (Auto) [place] # (Auto) Eos # (Auto) Baso # (Auto) Specimen Type Sample Site pH pCO2 pO2 HCO3 Base Excess Oxyhemoglobin ABG O2 Sat (Calculated) ABG O2 Saturation ABG Carboxyhemoglobin ABG Methemoglobin Edvin Test A-a O2 Difference Total Hemoglobin Lactate Blood Gas Modality Vent Mode Spontaneous Rate FiO2 % Tidal Volume PEEP Sodium Potassium Chloride Carbon Dioxide Anion Gap BUN Creatinine Estimated GFR/1.73 m2 BUN/Creatinine Ratio Glucose POC Glucose 102 113 H Calculated Osmolality Calcium Phosphorus 1.9 L Magnesium 01/06/20 01/06/20 01/06/20 10:40 16:41 17:30 WBC RBC Hgb Hct MCV MCH MCHC RDW Std Deviation Plt Count MPV Immature Gran % (Auto) Neut % (Auto) Lymph % (Auto) [place] % (Auto) Eos % (Auto) Baso % (Auto) Immature Gran # (Auto) Neut # (Auto) Lymph # (Auto) [place] # (Auto) Eos # (Auto) Baso # (Auto) Specimen Type Sample Site pH pCO2 pO2 HCO3 Base Excess Oxyhemoglobin ABG O2 Sat (Calculated) ABG O2 Saturation ABG Carboxyhemoglobin ABG Methemoglobin Edvin Test A-a O2 Difference Total Hemoglobin Lactate Blood Gas Modality Vent Mode Spontaneous Rate FiO2 % Tidal Volume PEEP Sodium Potassium Chloride Carbon Dioxide Anion Gap BUN Creatinine Estimated GFR/1.73 m2 BUN/Creatinine Ratio Glucose POC Glucose 95 43 L D 159 H D Calculated Osmolality Calcium Phosphorus Magnesium 01/06/20 01/06/20 18:13 19:49 WBC RBC Hgb Hct MCV MCH MCHC RDW Std Deviation Plt Count MPV Immature Gran % (Auto) Neut % (Auto) Lymph % (Auto) [place] % (Auto) Eos % (Auto) Baso % (Auto) Immature Gran # (Auto) Neut # (Auto) Lymph # (Auto) [place] # (Auto) Eos # (Auto) Baso # (Auto) Specimen Type Sample Site pH pCO2 pO2 HCO3 Base Excess Oxyhemoglobin ABG O2 Sat (Calculated) ABG O2 Saturation ABG Carboxyhemoglobin ABG Methemoglobin Edvin Test A-a O2 Difference Total Hemoglobin Lactate Blood Gas Modality Vent Mode Spontaneous Rate FiO2 % Tidal Volume PEEP Sodium 136 Potassium 4.4 Chloride 109 H Carbon Dioxide 17 L Anion Gap 10 BUN 24 H Creatinine 1.0 Estimated GFR/1.73 m2 > 60 BUN/Creatinine Ratio 24 Glucose 151 H POC Glucose 171 H Calculated Osmolality 279 Calcium 7.9 L Phosphorus 2.6 L Magnesium 2.1 Assessment: Acute respiratory failure, requiring intubation secondary to severe metabolic acidosis and altered mental status. Bronchopneumonia. CXR today shows mild interval worsening with more prominent patchy infiltrates in the right lung base. DKA. Improved. Metabolic encephalopathy. Acute kidney injury. Improved. Acidemia with Non-AG metabolic acidosis. Tobacco use, marijuana use and IV drug abuse. Prognosis guarded. Plan: We checked Ventilation and titrated to the patients needs for clinical protocols. We will keep closely monitoring patients clinical response. We titrated Sedative (Diprivan) to the patients needs per clinical protocols. We will keep closely monitoring patients clinical response. Continue antibiotics including Cefepime and Zyvox. Continue bronchodilators. Continue GI and DVT prophylaxis. NG tube feeding per dietitian. We follow up ABG tomorrow. If acidemia continuously improved, we will consider weaning trials. Evaluation time in minutes: 32 minutes
[2020-01-07] MEDS: DIPRIVAN 1% 1,000 MG/100 ML BOTTLE IV SCH ×2 (03:54→09:57)
[2020-01-07] MEDS: 1/2 NS 1,000 ML IV SCH ×2 (03:57→13:49)
[2020-01-07 05:02] LABS: ALLEN TEST YES; BE -8.9 mmoll (-3.0-3.0); BLOOD TYPE ARTERIAL; METHB 0.8 % (0.0-1.5); O2(CT) 16.8 mL/dL (15.0-23.0); O2HB 97.7 % (95.0-99.0); PCO2(98.6) 35 mmHg (35-45); PO2(98.6) 199 mmHg (60-100); SAMPLE BLOOD; SAO2 100.1 % (95.0-100.0); SRATE 12 BPM; THB 11.9 g/dL (11.5-17.4); TVOL 400 mL; pH(98.6) 7.29 (7.35-7.45)
[2020-01-07 05:03] LABS: MODALITY VENTILATOR
[2020-01-07] MEDS: ZYVOX 600 MG/D5W 600 MG/300 ML IVPB IV SCH ×2 (06:03→17:29)
[2020-01-07] MEDS: HUMULIN R SUBQ SCH ×4 (06:03→20:26)
[2020-01-07 06:15] LABS: BASO# 0.01 X1000 (0.0-0.2); BASO% 0.2 % (0.0-0.8); EOS# 0.19 X1000 (0.0-0.7); EOS% 4.1 % (0.0-10.0); HEMATOCRIT 31.5 % (42.0-52.0); HEMOGLOBIN 9.6 g/dL (14.0-18.0); LYMPH# 0.64 X1000 (1.2-3.4); MCH 24.1 PG (27-31); MCHC 30.5 g/dL (33-37); MCV 78.9 FL (81-99); MONO# 0.31 X1000 (0.11-0.59); MONO% 6.8 % (1.7-9.3); MPV 11.4 FL (7.4-10.4); NEUT# 3.43 X1000 (1.4-6.5); NEUT% 74.9 % (42.2-75.2); PLT 106 X1000 (130-400); RBC 3.99 XMIL (4.7-6.1); RDW 17.1 % (11.5-14.5); WBC 4.58 X1000 (4.8-10.8)
[2020-01-07 06:30] LABS: AGAP 12; BUN 21 mg/dL (8-22); CALCIUM 7.9 mg/dL (8.8-10.2); CHLORIDE 108 mmol/L (98-107); COSMO 278; ESTIMATED GFR > 60; GLUCOSE 116 mg/dL (70-104); MAGNESIUM 1.9 mg/dL (1.5-2.7); PHOSPHORUS 3.4 mg/dL (2.7-4.5); POTASSIUM 4.3 mmol/L (3.5-5.1); SODIUM 137 mmol/L (136-145); TCO2 17 mmol/L (25-35)
[2020-01-07] MEDS ORDERED: REGLAN IV ONE ×2 (07:30→16:00)
--- NOTE | 2020-01-07 08:38 | Diag Imaging Result Doc PS360 ---
EXAM: CHEST/ABD TUBE PLACEMENT 01/07/2020 HISTORY: OG tube adjustment TECHNIQUE: AP portable semiupright at 0829 COMMENT: There is a feeding tube with its tip in the gastric fundus. IMPRESSION: NG tube in the stomach. Electronically signed by Anil Gilliam 01/07/2020 8:35 AM
[2020-01-07] MEDS: CLINIMIX E 4.25%-5% SOLUTION 1,000 ML IV SCH (08:43)
[2020-01-07] MEDS: LANTUS INSULIN SUBQ SCH (08:49)
[2020-01-07] MEDS: MAXIPIME 2 GM/NS 2 GM/100 ML IVPB IV SCH ×2 (08:50→20:31)
[2020-01-07] MEDS: LOVENOX SUBQ SCH ×2 (08:50→20:31)
[2020-01-07] MEDS: DULCOLAX PR SCH ×2 (09:01→20:32)
--- NOTE | 2020-01-07 10:07 | PROGRESS NOTE ---
DATE: 01/07/2020 SUBJECTIVE: The patient is still on mechanical ventilation and sedated. Vital signs are stable. He is having high residuals with the nutrition through the NG tube. I will give him a couple doses of Reglan IV and I will start this patient on a low rate again to see if he can tolerate it, also I will continue with suppositories twice a day to stimulate his bowel movement, he had 1 bowel movement yesterday. OBJECTIVE: Vital Signs: Temperature 98.4 degrees, pulse 66, respiratory rate 19, blood pressure 139/77, oxygen saturation 100% on mechanical ventilation. HEENT: Head normocephalic, no trauma. PERRLA. Neck: Supple. No JVD. No masses. Central trachea. Chest: Decreased breath sounds at the bases with some rhonchi and crepitus at the right base. Abdomen: Soft, is not distended. Extremities: No edema, no clubbing, some coldness bilaterally at the hands. His left hand is slightly cyanotic compared with the right hand, but much better compared with admission and yesterday. Neurological examination: The patient is on mechanical ventilation and sedated. LABORATORY: WBC 4.5, hemoglobin 9.6, hematocrit 31.5, platelets 106,000. Sodium 137, potassium 4.3, chloride 108, bicarbonate 17, BUN 21, creatinine 1, glucose 116, calcium 7.9, phosphorus 3.4, magnesium 1.9. ASSESSMENT AND PLAN: 1. Diabetic ketoacidosis, resolved. Continue with long-acting insulin and sliding scale insulin as well. Continue with the same management. 2. Acute respiratory failure requiring intubation, continue with the same management. Pulmonary Department on board. 3. Encephalopathy, aware. 4. Hyperkalemia resolved. 5. Severe dehydration. He seems to be euvolemic at this time. 6. Acute kidney injury, resolved. Urine output is getting better. 7. Positive urine toxicology that showed amphetamines, aware. 8. Dysphagia, we placed an nasogastric tube with some difficulty, once this patient is more stable, I will get Gastroenterology Department to evaluate this patient to see if they can do an esophageal dilation, he was recently dilated. 9. Severe protein calorie malnutrition, continue with nutrition through the nasogastric tube but he seems to be having high residuals. I will start with a low rate and monitor. 10. Uncontrolled diabetes, hemoglobin A1c is 9.8. He came in with diabetic ketoacidosis, which resolved. I will continue with long-acting and short-acting insulin. 11. History of hepatitis C, ultrasound done on 12/07/2019 basically is normal. We will continue to monitor this closely. Gastroenterology Department will follow this patient as an outpatient. 12. History of pulmonary embolism. I will continue with anticoagulation for now. 13. Left-sided body cyanosis. This is much better. I will not do any changes. Both hands are a little bit cold, but much better compared with admission and has been getting better on a daily basis. CRITICAL CARE TIME: 32 minutes. cc: Yury Zamora MD
[2020-01-07 12:05] LABS: ALLEN TEST YES; BLOOD TYPE ARTERIAL; HCO3-(ACT) 19.5 mmoll (20.0-26.0); METHB 1.4 % (0.0-1.5); O2(CT) 14.3 mL/dL (15.0-23.0); O2HB 96.2 % (95.0-99.0); PCO2(98.6) 32 mmHg (35-45); PO2(98.6) 128 mmHg (60-100); SAMPLE BLOOD; SAO2 99.6 % (95.0-100.0); THB 10.4 g/dL (11.5-17.4); pH(98.6) 7.35 (7.35-7.45)
[2020-01-07 12:06] LABS: MODALITY VENTILATOR
[2020-01-07] MEDS: ATIVAN IV PRN ×4 (13:49→22:56)
[2020-01-07] MEDS: MYCOSTATIN SUSP PO SCH ×3 (13:49→20:31)
[2020-01-07] MEDS ORDERED: ATIVAN IV ONE (14:30)
[2020-01-07] MEDS: D50W SYRINGE IV PRN (16:16)
[2020-01-07] MEDS: PROTONIX IV SCH (17:29)
--- NOTE | 2020-01-07 18:11 | PROVIDER PROGRESS NOTE ---
Progress Note Dr. Camp Progress Note/Pulmonary and or critical care Subjective: The patient stays intubated and sedated. He is on NG tube feeding now. RN reports good cough effort during oral hygiene. No family at the bedside. Input is appreciated from Dr. Shabazz and other teams on the case. Objective: Vital Signs: (no fever in last 24 hours), TX 68, RR 24, BP 140/84 and SaO2 100% on AC 12, 30%, 400, 5. I/O: +2138ml. Physical Examination: General: Intubated. No acute distress noted. HEENT: Normocephalic. Trachea midline. ET tube in place. Mucosa pink and slightly dry. Chest: Mechanically ventilated. Symmetrical excursion. Decreased air entry in the right base. CVS: S1 and S2 appreciated. Abdomen: Soft. Non-distended. Normoactive bowel sounds in all 4 quadrants. Extremities: No pedal edema. No clubbing. BUE mildly cyanotic. Neuro: Sedated. Labs and Radiology: Laboratory Results 01/06/20 01/06/20 01/07/20 18:13 19:49 04:30 WBC 4.58 L RBC 3.99 L Hgb 9.6 L Hct 31.5 L MCV 78.9 L MCH 24.1 L MCHC 30.5 L RDW Std Deviation 17.1 H Plt Count 106 L MPV 11.4 H Immature Gran % (Auto) 0.0 Neut % (Auto) 74.9 Lymph % (Auto) 14.0 L [place] % (Auto) 6.8 Eos % (Auto) 4.1 Baso % (Auto) 0.2 Immature Gran # (Auto) 0.00 Neut # (Auto) 3.43 Lymph # (Auto) 0.64 L [place] # (Auto) 0.31 Eos # (Auto) 0.19 Baso # (Auto) 0.01 Specimen Type Sample Site pH pCO2 pO2 HCO3 Base Excess Oxyhemoglobin ABG O2 Sat (Calculated) ABG O2 Saturation ABG Carboxyhemoglobin ABG Methemoglobin Edvin Test A-a O2 Difference Total Hemoglobin Lactate Blood Gas Modality Vent Mode Spontaneous Rate FiO2 % Tidal Volume PEEP Pressure Support Sodium 136 Potassium 4.4 Chloride 109 H Carbon Dioxide 17 L Anion Gap 10 BUN 24 H Creatinine 1.0 Estimated GFR/1.73 m2 > 60 BUN/Creatinine Ratio 24 Glucose 151 H POC Glucose 171 H Calculated Osmolality 279 Calcium 7.9 L Phosphorus 2.6 L Magnesium 2.1 01/07/20 01/07/20 01/07/20 04:30 04:51 05:36 WBC RBC Hgb Hct MCV MCH MCHC RDW Std Deviation Plt Count MPV Immature Gran % (Auto) Neut % (Auto) Lymph % (Auto) [place] % (Auto) Eos % (Auto) Baso % (Auto) Immature Gran # (Auto) Neut # (Auto) Lymph # (Auto) [place] # (Auto) Eos # (Auto) Baso # (Auto) Specimen Type ARTERIAL Sample Site R RADIAL pH 7.29 L pCO2 35 pO2 199 H HCO3 18.0 L Base Excess -8.9 L Oxyhemoglobin 97.7 ABG O2 Sat (Calculated) 16.8 ABG O2 Saturation 100.1 H ABG Carboxyhemoglobin 1.70 ABG Methemoglobin 0.8 Edvin Test YES A-a O2 Difference 42.0 Total Hemoglobin 11.9 Lactate 0.90 Blood Gas Modality VENTILATOR Vent Mode A/C Spontaneous Rate 12 FiO2 % 40.0 Tidal Volume 400 PEEP 5.0 Pressure Support Sodium 137 Potassium 4.3 Chloride 108 H Carbon Dioxide 17 L Anion Gap 12 BUN 21 Creatinine 1.0 Estimated GFR/1.73 m2 > 60 BUN/Creatinine Ratio 21 Glucose 116 H POC Glucose 100 Calculated Osmolality 278 Calcium 7.9 L Phosphorus 3.4 Magnesium 1.9 01/07/20 01/07/20 01/07/20 08:48 10:31 11:56 WBC RBC Hgb Hct MCV MCH MCHC RDW Std Deviation Plt Count MPV Immature Gran % (Auto) Neut % (Auto) Lymph % (Auto) [place] % (Auto) Eos % (Auto) Baso % (Auto) Immature Gran # (Auto) Neut # (Auto) Lymph # (Auto) [place] # (Auto) Eos # (Auto) Baso # (Auto) Specimen Type ARTERIAL Sample Site R RADIAL pH 7.35 pCO2 32 L pO2 128 H HCO3 19.5 L Base Excess -7.0 L Oxyhemoglobin 96.2 ABG O2 Sat (Calculated) 14.3 L ABG O2 Saturation 99.6 ABG Carboxyhemoglobin 2.00 ABG Methemoglobin 1.4 Edvin Test YES A-a O2 Difference 46.0 Total Hemoglobin 10.4 L Lactate 0.80 Blood Gas Modality VENTILATOR Vent Mode CPAP Spontaneous Rate FiO2 % 30.0 Tidal Volume PEEP 5.0 Pressure Support 5.00 Sodium Potassium Chloride Carbon Dioxide Anion Gap BUN Creatinine Estimated GFR/1.73 m2 BUN/Creatinine Ratio Glucose POC Glucose 117 H 75 Calculated Osmolality Calcium Phosphorus Magnesium 01/07/20 01/07/20 16:04 16:48 WBC RBC Hgb Hct MCV MCH MCHC RDW Std Deviation Plt Count MPV Immature Gran % (Auto) Neut % (Auto) Lymph % (Auto) [place] % (Auto) Eos % (Auto) Baso % (Auto) Immature Gran # (Auto) Neut # (Auto) Lymph # (Auto) [place] # (Auto) Eos # (Auto) Baso # (Auto) Specimen Type Sample Site pH pCO2 pO2 HCO3 Base Excess Oxyhemoglobin ABG O2 Sat (Calculated) ABG O2 Saturation ABG Carboxyhemoglobin ABG Methemoglobin Edvin Test A-a O2 Difference Total Hemoglobin Lactate Blood Gas Modality Vent Mode Spontaneous Rate FiO2 % Tidal Volume PEEP Pressure Support Sodium Potassium Chloride Carbon Dioxide Anion Gap BUN Creatinine Estimated GFR/1.73 m2 BUN/Creatinine Ratio Glucose POC Glucose 56 L 102 D Calculated Osmolality Calcium Phosphorus Magnesium Assessment: Acute respiratory failure, requiring intubation secondary to severe metabolic acidosis and altered mental status. Improving. Bronchopneumonia. DKA. Improved. Metabolic encephalopathy. Acute kidney injury. Improved. Compensated Non-AG metabolic acidosis with respiratory alkalosis. Tobacco use, marijuana use and IV drug abuse. Prognosis guarded. Plan: We checked Ventilation and titrated to the patients needs per clinical protocols. We will keep closely monitoring patients clinical response. We titrated Sedative (Diprivan) to the patients needs per clinical protocols. We will keep closely monitoring patients clinical response. We start weaning trials today and will consider extubation if indicated. Continue antibiotics including Cefepime and Zyvox. Continue bronchodilators. Continue GI and DVT prophylaxis. Advance NG tube feeding per dietitian. We follow up ABG tomorrow. Evaluation time in minutes: 33 minutes
[2020-01-08] MEDS ORDERED: HALDOL IM ONE ×2 (00:17)
[2020-01-08] MEDS: 1/2 NS 1,000 ML IV SCH ×3 (01:06→22:42)
[2020-01-08] MEDS: ATIVAN IV PRN ×6 (04:36→22:36)
[2020-01-08 04:40] LABS: ALLEN TEST YES; BE -4.7 mmoll (-3.0-3.0); BLOOD TYPE ARTERIAL; HCO3-(ACT) 21.3 mmoll (20.0-26.0); METHB 0.4 % (0.0-1.5); O2HB 97.3 % (95.0-99.0); PCO2(98.6) 30 mmHg (35-45); PO2(98.6) 92 mmHg (60-100); SAMPLE BLOOD; THB 10.9 g/dL (11.5-17.4); pH(98.6) 7.41 (7.35-7.45)
[2020-01-08 04:42] LABS: MODALITY ROOM AIR
[2020-01-08] MEDS: ZYVOX 600 MG/D5W 600 MG/300 ML IVPB IV SCH ×2 (05:41→18:16)
[2020-01-08] MEDS: D50W SYRINGE IV PRN ×2 (05:59→16:55)
[2020-01-08] MEDS: HUMULIN R SUBQ SCH ×4 (06:07→20:28)
[2020-01-08 06:42] LABS: BASO# 0.01 X1000 (0.0-0.2); BASO% 0.2 % (0.0-0.8); EOS# 0.06 X1000 (0.0-0.7); HEMOGLOBIN 10.2 g/dL (14.0-18.0); LYMPH# 0.71 X1000 (1.2-3.4); LYMPH% 11.5 % (20.5-51.1); MCH 23.7 PG (27-31); MCHC 30.9 g/dL (33-37); MCV 76.7 FL (81-99); MONO# 0.39 X1000 (0.11-0.59); MONO% 6.3 % (1.7-9.3); MPV 11.4 FL (7.4-10.4); NEUT# 5.01 X1000 (1.4-6.5); PLT 129 X1000 (130-400); RDW 16.9 % (11.5-14.5); WBC 6.18 X1000 (4.8-10.8)
--- NOTE | 2020-01-08 07:11 | Diag Imaging Result Doc PS360 ---
EXAM: CHEST-PORTABLE 01/08/2020 HISTORY: dyspnea TECHNIQUE: AP portable at 0521 COMMENT: Compared to 01/06/2020 there is slightly increased alveolar opacity in the right lung particularly in the right upper lobe. The inspiration is slightly less optimal however. IMPRESSION: Pulmonary edema and/or pneumonia. Electronically signed by Anil Gilliam 01/08/2020 7:08 AM
[2020-01-08 07:26] LABS: LYMPHS 18 % (21-51); MONO 4 % (1-9); SEGS 76 % (42-75)
[2020-01-08 07:32] LABS: AGAP 15; ALB/GLOB RATIO 0.8; ALBUMIN 2.8 g/dL (3.5-5.0); ALKALINE PHOSPHATASE 94 U/L (32-122); BUN 15 mg/dL (8-22); CALCIUM 8.5 mg/dL (8.8-10.2); CHLORIDE 107 mmol/L (98-107); COSMO 275; CREATININE 0.9 mg/dL (0.7-1.2); ESTIMATED GFR > 60; GLUCOSE 44 mg/dL (70-104); GOT 36 U/L (10-34); GPT 21 U/L (10-44); MAGNESIUM 1.8 mg/dL (1.5-2.7); PHOSPHORUS 2.2 mg/dL (2.7-4.5); POTASSIUM 3.9 mmol/L (3.5-5.1); SODIUM 139 mmol/L (136-145); TCO2 17 mmol/L (25-35); TOTAL BILIRUBIN 0.26 mg/dL (0.20-1.00); TOTAL PROTEIN 6.3 g/dL (6.3-8.3)
[2020-01-08] MEDS ORDERED: LASIX IV ONE (08:19)
[2020-01-08] MEDS: DULCOLAX PR SCH ×2 (08:43→20:39)
[2020-01-08] MEDS: GEODON IM PRN ×3 (08:43→22:36)
[2020-01-08] MEDS: STERILE WATER INJ. INJ PRN ×3 (08:43→22:36)
[2020-01-08] MEDS: MYCOSTATIN SUSP PO SCH ×4 (08:43→20:39)
[2020-01-08] MEDS: LOVENOX SUBQ SCH ×2 (08:44→20:39)
[2020-01-08] MEDS: MAXIPIME 2 GM/NS 2 GM/100 ML IVPB IV SCH ×2 (08:44→20:38)
[2020-01-08] MEDS: CLINIMIX E 4.25%-5% SOLUTION 1,000 ML IV SCH ×2 (08:44→22:37)
[2020-01-08] MEDS: LIPOSYN 20% 500 ML IV SCH (08:47)
[2020-01-08] MEDS: LANTUS INSULIN SUBQ SCH (08:47)
--- NOTE | 2020-01-08 08:47 | PROGRESS NOTE ---
DATE: 01/08/2020 SUBJECTIVE: This patient had been extubated yesterday. He seems to be confused today. He is able to say his name and date of . He has been aggressive. He has been getting multiple medications during the night, like Haldol. He also received some Ativan. He is tachycardic. His blood pressure is a little bit high and I will put him on hydralazine as needed. The patient basically presented because of dysphagia. He was not able to keep anything down for at least 3 days. He came in with DKA, which resolved. I will continue with the same management for now. His blood sugar dropped this morning because he is not getting nutrition through the OG tube, which had been removed after extubation. I will decrease the dose of Lantus to avoid hypoglycemia from 30 units to 10 units and monitor. I will also increase the rate of the Clinimix. I will put him on lipids and I will consult the gastroenterology department to evaluate this patient because of his dysphagia. PHYSICAL EXAMINATION: Vital Signs: Temperature 98.3 degrees, pulse 101, respiratory rate 20, blood pressure 164/85, oxygen saturation 100% on room air. HEENT: Head normocephalic. No trauma. PERRLA. Neck: Supple. No JVD. No masses. Central trachea. Chest: Decreased breath sounds at the bases with some rhonchi and crepitus at the right base. Abdomen: Soft. It is not distended. Extremities: No edema, no clubbing, no cyanosis. Some coldness at the level of the hands. His left hand is slightly cyanotic compared with the right hand, but better compared with admission. Neurological Examination: The patient is awake. He is alert. He is not following commands consistently. He is oriented to person and he is able to say his date of . LABORATORY: WBCs 6.1, hemoglobin 10.2, hematocrit 33, platelets 129,000. Sodium 139, potassium 3.9, chloride 107, bicarbonate 17, BUN 15, creatinine 0.9, glucose 44, calcium 8.5, phosphorus 2.2. AST 36, ALT 21, alkaline phosphatase 94. ASSESSMENT AND PLAN: 1. Diabetic ketoacidosis, resolved. Continue with long-acting insulin and short-acting insulin as well. 2. Acute respiratory failure requiring intubation. He had been extubated yesterday. Pulmonary is on board. He seems to be stable. 3. Encephalopathy. Aware. He is still encephalopathic. He is oriented to person. He is able to say his date of . 4. Hyperkalemia, resolved. 5. Severe dehydration. He is euvolemic at this time. 6. Acute kidney injury, resolved. 7. Positive urine toxicology that showed amphetamines. Aware. I do believe he has a history of intravenous drug use. 8. Dysphagia. We placed an orogastric tube but this had been removed after extubating the patient. I will request gastroenterology department to evaluate this patient. 9. Severe protein calorie malnutrition. I will increase the rate of the Clinimix and I will put him on some lipids through his vein. 10. Uncontrolled diabetes, hemoglobin A1c 9.8. He came in with diabetic ketoacidosis which resolved. Continue with the same management for now. 11. History of hepatitis C. Ultrasound done on 12/07/2019 basically was normal. We will continue to monitor this closely. Gastroenterology department will follow this patient during this hospitalization and also upon discharge. 12. History of pulmonary embolism. Continue with anticoagulation for now. 13. Left-sided body cyanosis. This is better. I will not make any changes. cc: Yury Zamora MD
[2020-01-08] MEDS: APRESOLINE IV PRN ×2 (11:13→20:39)
--- NOTE | 2020-01-08 16:14 | GASTROENTEROLOGY CONSULTATION ---
DATE: 01/08/2020 REASON FOR CONSULT: Dysphagia. HISTORY OF PRESENT ILLNESS: Mr. Wallace is a 54-year-old, male who is currently in the ICU. He has been in the hospital since 01/04/2020. The patient has a history of uncontrolled diabetes, hepatitis C, chronic kidney disease. The patient recently had an EGD done with Dr. Joseph on 12/01/2019. He had a long stricture in the distal esophagus that was dilated, reflux esophagitis in the entire esophagus. Biopsies were taken. Mucosa of the stomach was normal. A single ulcer measuring 12 x 15 mm in size was found in the duodenum. Biopsy was taken. Duodenal inflammation was found in the second part of the duodenum. Pathology report showed that he had active duodenitis with gastric metaplasia and active esophagitis with ulceration. The patient was just extubated yesterday and he had an OG tube that got dislodged so the tube had to be taken out. The patient is unable to swallow. GI has been consulted for his dysphagia. The patient is currently confused, agitated, aggressive. He is in soft restraints both on the hands and legs. Unable to get any history from the patient. History gathered from the past medical records and from the nursing staff. PAST MEDICAL HISTORY: Diabetes-uncontrolled, hepatitis C, CKD, pulmonary embolism, dysphagia, altered mental status. PAST SURGICAL HISTORY: EGD with dilation ALLERGIES: No known drug allergies. SOCIAL HISTORY: As per records, positive for tobacco, alcohol use, marijuana, and IV drug use. The patient has 3 kids. HOME MEDICATIONS: Have not yet been reconciled. REVIEW OF SYSTEMS: Unable to obtain any information from the patient. PHYSICAL EXAMINATION: Vital Signs: Temperature 98.3 degrees, pulse 128, respirations 22, blood pressure 175/98, oxygen saturation 100% on room air. The patient's weight is 129 pounds. BMI is 19.0 kg/m2. General: Patient is confused. Unable to assess. HEENT: Pale conjunctivae. No icterus. PERRL. Neck: Supple. Lungs: Decreased breath sounds heard. Cardiovascular: Patient is tachycardic and tachypneic. Abdomen: Soft, nontender. Active bowel sounds heard in all 4 quadrants. Extremities: No edema. No clubbing. Cyanosis noted in the left hand and in the left lower extremity. Neurologic: The patient is confused. Unable to assess the patient. LABORATORY DATA: WBCs are 6.18, RBCs 4.30, hemoglobin 10.2, hematocrit is 33.0, platelet count is 129,000. Sodium is 139, potassium is 3.9, chloride 107, carbon dioxide 17, anion gap 15, BUN 15, creatinine is 0.9, glucose 44, calcium is 8.5, phosphorus 2.2, magnesium 1.8. Bilirubin is 0.26, AST 36, ALT 21, alkaline phosphatase 94, albumin 2.8. IMAGING: Chest x-ray had shown pulmonary edema and pneumonia. IMPRESSION AND PLAN: 1. Dysphagia. 2. Altered mental status. 3. Uncontrolled diabetes. 4. Diabetic ketoacidosis. 5. Hepatitis C. 6. Chronic kidney disease. 7. History of pulmonary embolism. PLAN: Mr. Wallace is a 52-year-old, male who is in the ICU. Currently, confused, in restraints. GI has been consulted for his dysphagia. The patient is currently unable to comprehend anything. We will continue to monitor the patient. The patient is currently on antibiotics, Zyvox and Maxipime. He is on PPIs daily. The patient is on a bowel regimen, Dulcolax 10 mg suppository twice a day. He is receiving Clinimix and lipids for his nutrition. We will continue to monitor the patient and follow the plan of care per PCP. This plan was discussed with Dr. Wiley. Please call us for any further questions or concerns. Dictated by COURTNEY Stafford for Aimee Wiley MD cc: Aimee Wiley MD [facility]
[2020-01-08] MEDS: PROTONIX IV SCH (18:15)
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
[2020-01-09] MEDS: ATIVAN IV PRN ×5 (05:00→21:00)
[2020-01-09] MEDS: ZYVOX 600 MG/D5W 600 MG/300 ML IVPB IV SCH ×2 (05:00→18:11)
[2020-01-09] MEDS: HUMULIN R SUBQ SCH ×4 (06:14→20:26)
[2020-01-09] MEDS: CLINIMIX E 4.25%-5% SOLUTION 1,000 ML IV SCH ×3 (06:14→23:43)
[2020-01-09 06:41] LABS: ALLEN TEST YES; BE 0.1 mmoll (-3.0-3.0); BLOOD TYPE ARTERIAL; METHB 0.7 % (0.0-1.5); O2(CT) 15.2 mL/dL (15.0-23.0); O2HB 96.2 % (95.0-99.0); PCO2(98.6) 33 mmHg (35-45); PO2(98.6) 83 mmHg (60-100); SAMPLE BLOOD; SAO2 99.8 % (95.0-100.0); THB 11.2 g/dL (11.5-17.4); pH(98.6) 7.46 (7.35-7.45)
[2020-01-09 06:42] LABS: MODALITY ROOM AIR
[2020-01-09 07:05] LABS: AGAP 14; ALB/GLOB RATIO 0.7; ALBUMIN 2.5 g/dL (3.5-5.0); ALKALINE PHOSPHATASE 97 U/L (32-122); BUN 21 mg/dL (8-22); CALCIUM 8.5 mg/dL (8.8-10.2); CHLORIDE 100 mmol/L (98-107); COSMO 281; CREATININE 0.9 mg/dL (0.7-1.2); ESTIMATED GFR > 60; GLUCOSE 337 mg/dL (70-104); GOT 27 U/L (10-34); GPT 18 U/L (10-44); MAGNESIUM 1.9 mg/dL (1.5-2.7); PHOSPHORUS 2.9 mg/dL (2.7-4.5); POTASSIUM 4.4 mmol/L (3.5-5.1); SODIUM 132 mmol/L (136-145); TCO2 18 mmol/L (25-35); TOTAL BILIRUBIN 0.23 mg/dL (0.20-1.00); TOTAL PROTEIN 6.3 g/dL (6.3-8.3)
--- NOTE | 2020-01-09 07:36 | Diag Imaging Result Doc PS360 ---
EXAM: CHEST-1 VIEW INDICATION: SOB TECHNIQUE: One view COMPARISON: 01/08/2020 FINDINGS: There has been interval improvement of the consolidation throughout the right lung. No new consolidation is identified. Cardiac silhouette is stable. IMPRESSION: Interval improvement. Electronically signed by Sedrick Neil 01/09/2020 7:34 AM
--- NOTE | 2020-01-09 08:21 | PROGRESS NOTE ---
DATE: 01/09/2020 SUBJECTIVE: This patient has been extubated 2 days ago. He seems to be less confused today and actually he is answering most of my questions. I will give him some ice chips since his mouth is dry. I already consulted the gastroenterology department to evaluate this patient for severe dysphagia that basically brought this patient here and also he has diabetic ketoacidosis diabetic ketoacidosis. OBJECTIVE: Vital Signs: Temperature 98.7 degrees, pulse 125, respiratory rate 20, blood pressure 151/96, oxygen saturation 100% on room air. HEENT: Head normocephalic, no trauma. PERRLA. Neck: Supple. No JVD. No masses. Central trachea. Chest: Decreased breath sounds mostly at the bases with some rhonchi and crepitus at the right base. Abdomen: Soft, nondistended. Extremities: No edema, no clubbing, no cyanosis. Neurologic: Patient is awake and alert. He is following commands for me. He is answering most of my questions. He is oriented to place. He knows his name, date of . He knew who is the customer quality specialist. For the year, he said that we are in the 1920s. LABORATORY: Sodium 132, potassium 4.4, chloride 100, bicarbonate 18, BUN 21, creatinine 0.9, glucose 337, calcium 8.5, albumin 2.5. ASSESSMENT AND PLAN: 1. Diabetic ketoacidosis, resolved. Continue with long-acting and short-acting insulin. 2. Encephalopathy. This is getting better. He is oriented x2. He is answering most of my questions. 3. Acute respiratory failure requiring intubation, status post extubation 2 days ago. 4. Hyperkalemia, resolved. 5. Severe dehydration, resolved. 6. Acute kidney injury, resolved. 7. Positive urine toxicology that showed amphetamines. As per the patient he is not an IV drug user at this moment. He has been snorting the amphetamines. 8. Dysphagia. GI has been consulted. Hopefully, he can get scoped in the near future. 9. Severe protein calorie malnutrition. Continue for now with Clinimix and lipids. 10. Uncontrolled diabetes. Hemoglobin A1c is 9.8. This has been discussed with the patient. 11. History of hepatitis C. Ultrasound done on 12/07/2019 basically was normal. We will continue to monitor this closely. GI on board. 12. History of pulmonary embolism. Continue with anticoagulation for now. 13. Left-sided body cyanosis, resolved. cc: Yury Zamora MD
[2020-01-09] MEDS: LANTUS INSULIN SUBQ SCH (09:20)
[2020-01-09] MEDS: LOVENOX SUBQ SCH (09:21)
[2020-01-09] MEDS: MAXIPIME 2 GM/NS 2 GM/100 ML IVPB IV SCH ×2 (09:21→20:26)
[2020-01-09] MEDS: MYCOSTATIN SUSP PO SCH ×4 (09:22→20:26)
[2020-01-09] MEDS: DULCOLAX PR SCH ×2 (09:22→20:26)
--- NOTE | 2020-01-09 12:31 | PROVIDER PROGRESS NOTE ---
Progress Note Pulmonary: Will see PRN. Pls reconsult if needed
--- NOTE | 2020-01-09 12:35 | GASTROENTEROLOGY PROGRESS NOTE ---
DATE: 01/09/2020 SUBJECTIVE: Mr. Wallace is a 54-year-old, male resting in bed. The patient was much more alert and oriented today. He was answering questions appropriately and he was apologizing for not behaving well yesterday. The patient has denied having any bowel movements today. He is currently NPO since he is not able to swallow anything. He is complaining that his throat is hurting. OBJECTIVE: Vital Signs: Temperature 97.8 degrees, pulse 105, respirations 15, blood pressure 127/79, oxygen saturation 100% on room air. The patient's weight is 129 pounds. BMI is 19.0 kg/m2. General: He is alert, oriented x2, and in no acute distress. HEENT: Pale conjunctivae. No icterus. PERRL. Neck: Supple. Lungs: Diminished breath sounds in the anterior lobes with rhonchi heard in the anterior lobes. Cardiovascular: Patient is tachycardic. Abdomen: Soft, nontender, nondistended. Active bowel sounds heard in all 4 quadrants. Extremities: No edema, no clubbing. Mild cyanosis in the lower extremities. Neurologic: The patient is alert, oriented x2. Labs: Patient has no new hematology. Chemistry are sodium of 132, potassium 4.4, chloride 100, carbon dioxide 18, anion gap 14, BUN 21, creatinine is 0.9, glucose 337, calcium 8.5, phosphorus 2.9, magnesium 1.9. Total bilirubin 0.23, AST 27, ALT 18, alkaline phosphatase is 97, albumin is 2.5. Imaging: Patient's chest x-ray today showed interval improvement. IMPRESSION AND PLAN 1. Encephalopathy. 2. Diabetic ketoacidosis. 3. Nausea and vomiting. 4. History of alcoholism. 5. Dysphagia. PLAN: Mr. Wallace is a 54-year-old, male, currently in the ICU. The patient is much more alert and oriented today. GI has been following him for his dysphagia. We plan to do an EGD tomorrow to find out the cause of his dysphagia. The patient is currently n.p.o. and has difficulty swallowing. He is currently on antibiotics, Zyvox and Maxipime. He is receiving antiemetic, Zofran, for his nausea and vomiting. The patient is also on PPIs daily. We have discussed the risks, benefits, and alternatives of the procedure to the patient. Further plan of care will be based on the EGD findings. This plan was discussed with Dr. Santana. Please call us for any further questions or concerns. Dictated by COURTNEY Stafford for Donaldo Santana MD cc: Donaldo Santana MD I have seen and examined the patient myself and I agree with the above plan of care. Please call us with any further questions or concerns. MTDD
[2020-01-09] MEDS: PROTONIX IV SCH (18:13)
[2020-01-09] MEDS: SODIUM CHLORIDE 0.9% INJ SCH (18:13)
[2020-01-09] MEDS: LIPOSYN 20% 500 ML IV SCH (19:19)
[2020-01-09] MEDS: 1/2 NS 1,000 ML IV SCH (19:19)
[2020-01-10] MEDS: ATIVAN IV PRN ×3 (04:01→12:25)
[2020-01-10] MEDS: ZYVOX 600 MG/D5W 600 MG/300 ML IVPB IV SCH (05:08)
[2020-01-10] MEDS: HUMULIN R SUBQ SCH ×2 (06:01→10:17)
[2020-01-10 07:13] LABS: HEMATOCRIT 35.5 % (42.0-52.0); HEMOGLOBIN 11.5 g/dL (14.0-18.0); MCH 24.4 PG (27-31); MCHC 32.4 g/dL (33-37); MCV 75.2 FL (81-99); PLT 64 X1000 (130-400); RBC 4.72 XMIL (4.7-6.1); RDW 16.7 % (11.5-14.5); WBC 3.78 X1000 (4.8-10.8)
[2020-01-10] MEDS: 1/2 NS 1,000 ML IV SCH (08:33)
[2020-01-10] MEDS: LIPOSYN 20% 500 ML IV SCH (08:33)
[2020-01-10] MEDS: DULCOLAX PR SCH (08:34)
--- NOTE | 2020-01-10 08:35 | PROGRESS NOTE ---
DATE: 01/10/2020 SUBJECTIVE: The patient seems to be more stable. He will have esophagogastroduodenoscopy done today. He has a previous history of esophageal stricture. I held the Lovenox yesterday. We will monitor this patient closely. OBJECTIVE: Vital Signs: Temperature 98 degrees, pulse 100, respiratory rate 16, blood pressure 136/87, oxygen saturation 97% on room air. HEENT: Head normocephalic, no trauma. PERRLA. Neck: Supple. No JVD. No masses. Central trachea. Chest: Decreased breath sounds, mostly at the bases with some rhonchi and crepitus at the right base. Abdomen: Soft, nondistended. Extremities: No edema, no clubbing, no cyanosis. Neurological: The patient is awake and alert. He is following commands for me. He is answering my questions. LABORATORY DATA: WBC 3.7, hemoglobin 11.5, hematocrit 35.5, platelets 64,000. Pending BMP. ASSESSMENT AND PLAN: 1. Diabetic ketoacidosis, resolved. Continue with long-acting and short-acting insulin. 2. Encephalopathy, much better, resolved. 3. Acute respiratory failure requiring intubation, resolved. 4. Hyperkalemia, resolved. 5. Severe dehydration, resolved. 6. Acute kidney injury, resolved pending lab work today. 7. Positive urine toxicology that showed amphetamine. As per the patient, he is not using IV drugs, but he is snorting the amphetamines. 8. Dysphagia. He will go for an esophagogastroduodenoscopy today. He has he has a previous history of esophageal stricture. 9. Severe protein calorie malnutrition. Continue for now with Clinimix and lipids. 10. Uncontrolled type 2 diabetes. Hemoglobin A1c is 9.8. This has been discussed with the patient. I told him that he needs to use his medications as prescribed. 11. History of hepatitis C. Ultrasound done on 12/07/2019 basically was normal. We will continue to monitor this closely. Gastroenterology on board. 12. History of pulmonary embolism. Continue with anticoagulation for now, this has been stopped due to the procedure. 13. Some left-sided body cyanosis, resolved. cc: Yury Zamora MD
[2020-01-10 08:44] LABS: AGAP 10; BUN 22 mg/dL (8-22); CALCIUM 8.4 mg/dL (8.8-10.2); CHLORIDE 99 mmol/L (98-107); COSMO 281; CREATININE 0.7 mg/dL (0.7-1.2); ESTIMATED GFR > 60; GLUCOSE 272 mg/dL (70-104); POTASSIUM 3.8 mmol/L (3.5-5.1); SODIUM 134 mmol/L (136-145); TCO2 25 mmol/L (25-35)
[2020-01-10] MEDS ORDERED: DIPRIVAN 1% ONE (09:35)
--- NOTE | 2020-01-10 09:55 | ENDOSCOPY OPERATIVE NOTE ---
[facility] ENDOSCOPY OPERATIVE NOTE , EGD PROCEDURE REPORT EXAM DATE: 01/10/2020 PATIENT NAME: Alen Wallace MR#: [id number] BIRTHDATE: 1965 ATTENDING: Alen Calderon MD STATUS: inpatient ADJUNCT PROFESSOR OF [employer] HISTORY: Jean Fernandez and Gia Tucker INDICATIONS: The patient is a 54 yr old male here for an EGD due to dysphagia, pharyngeal-esophageal , nausea, vomiting, and history of PUD. PROCEDURE PERFORMED: EGD, diagnostic MEDICATIONS: Per Anesthesia ESTIMATED BLOOD LOSS: None CONSENT: The patient understands the risks and benefits of the procedure and understands that these r isks include, but are not limited to: sedation, allergic reaction, infection, perforation and/or bleeding. Alternative means of evaluation and treatment include, among others: physical exam, x-rays, and/or surgical intervention. The patient elects to proceed with this endoscopic procedure. DESCRIPTION OF PROCEDURE: During pre-op preparation period all mechanical and medical equipment was c hecked for proper function. Hand hygiene and appropriate measures for infection prevention was taken. After the risks, benefits and alternatives of the procedure were thoroughly explained, Informed consent was verified, confirmed and timeout was successfully executed by the treatment team. The patient was anesthetized with topical anesthesia and the [id number]-[id number] ([id number]) endoscope was introduced through the mouth and advanced to the esophagus mid. Retroflexion of the stomach was not performed. The gastroscope was then slowly withdrawn and removed. The patient's toleration of the procedure was excellent. ESOPHAGUS: Esophagitis was found in the lower third of the esophagus and middle third esophagus. Eso phagitis was LA Class D: Mucosal breaks involving more than 75% of esophageal circumference. There was a long taper ing stricture with inner diameter measuring 7-8mm. The stricture was not traversable. Fluid-filled esophagus aspirated. ADVERSE EVENTS: There were no complications. IMPRESSIONS: ESOPHAGUS: Esophagitis was found in the lower third of the esophagus and middle third esophagus. Eso phagitis was LA Class D: Mucosal breaks involving more than 75% of esophageal circumference. There was a long taper ing stricture with inner diameter measuring 7-8mm. The stricture was not traversable. RECOMMENDATIONS: Clear liquid diet. Advance to full liquids as tolerated PPI PO BID Carafate 1gm liquid QID Repeat outpatient EGD in 6-8 weeks to assess healing and possible dilation. May need dilation under fluoroscopy. REPEAT EXAM: Return in 8 weeks for EGD. Alen Calderon MD eSigned: Alen Calderon MD 01/10/2020 9:54 AM CC: CPT CODES: 99321 Upper gastrointestinal endoscopy including esophagus, stomach, and either the du odenum and/or jejunum as appropriate; diagnostic, with or without collection of specimen(s) by brushing or washing (separate procedure) ICD CODES: 787.20 Dysphagia,unspecified 787.02 Nausea 787.03 Vomiting,unspecified The ICD and CPT codes recommended by this software are interpretations from the data that the [facility] staff has captured with the software. The verification of the translation of this report to the ICD and CPT co arben and modifiers is the sole responsibility of the health care institution and practicing physician where this report was generated. [employer] will not be held responsible for the validity of the ICD and CPT codes i ncluded on this report. AMA assumes no liability for data contained or not contained herein. CPT is a registered tra demark of the [employer]. PATIENT NAME: Alen Wallace MR#: [id number]
[2020-01-10] MEDS: MYCOSTATIN SUSP PO SCH ×2 (10:17→13:42)
[2020-01-10] MEDS: MAXIPIME 2 GM/NS 2 GM/100 ML IVPB IV SCH (10:17)
[2020-01-10] MEDS: LANTUS INSULIN SUBQ SCH (10:18)
[2020-01-10] MEDS ORDERED: SODIUM CHLORIDE 0.9% INJ SCH (13:30)
[2020-01-10] MEDS ORDERED: PROTONIX IV SCH (13:30)
[2020-01-10] MEDS: CLINIMIX E 4.25%-5% SOLUTION 1,000 ML IV SCH (13:42)
[2020-01-10] MEDS ORDERED: CARAFATE LIQUID PO SCH (14:00)
[2020-01-10 15:08] VITALS: BP 150/97
--- NOTE | 2020-01-11 10:21 | DISCHARGE SUMMARY ---
ADMISSION DATE: 01/04/2020 DISCHARGE DATE: 01/10/2020 PRIMARY CARE PHYSICIAN: Listed as none. ADMISSION DIAGNOSES: 1. Diabetic ketoacidosis. 2. Encephalopathy. 3. Hyperkalemia. 4. Metabolic acidosis, likely due to diabetic ketoacidosis. 5. Severe dehydration. 6. Acute kidney injury. 7. Positive urine toxicology that showed amphetamines. 8. Dysphagia. 9. Uncontrolled diabetes. 10. History of hepatitis C. 11. History of pulmonary embolism. 12. Left-sided body discoloration and cyanosis. DISCHARGE DIAGNOSES: 1. Diabetic ketoacidosis, resolved. 2. Encephalopathy, resolved. 3. Acute respiratory failure requiring intubation, resolved. 4. Hyperkalemia, resolved. 5. Severe dehydration, resolved. 6. Acute kidney injury, resolved. 7. Positive urine toxicology that showed amphetamine. 8. Dysphagia. 9. Severe protein calorie malnutrition. 10. Uncontrolled diabetes type 2 with hemoglobin A1c of 9.8. 11. History of hepatitis C. 12. History of pulmonary embolism. 13. Some left-sided body cyanosis, resolved. SUMMARY: Please note, this is an AGAINST MEDICAL ADVICE discharge of this patient, who initially presented to the emergency department complaining of shortness of breath, confusion, and swallowing problems, became agitated and more encephalopathic. Labs showed severe acidosis with a pH low at 7.1, and a bicarbonate of 6.9. He was intubated in the emergency room and sedated, and was found to be in DKA with a moderate acetone level. Anion gap was 38. He was admitted to the intensive care unit, placed on our DKA protocol, given hydration. We had consults with Pulmonology and Gastroenterology. Yesterday, he had an EGD that found that he had esophagitis in the lower third of the esophagus and middle third of the esophagus. Recommended PPIs b.i.d., Carafate 1 gram 4 times daily. Repeat the EGD on an outpatient basis in 6 to 8 weeks. Had been extubated and doing well. His DKA had resolved, but again, he left AGAINST MEDICAL ADVICE after he got out of bed, yelling, attempting to pull out his Padilla. Gait was unsteady. Stated "I'm going home now. I'm good and I don't need to be here anymore. I'm going home." Was alert and oriented x4. Staff explained the importance of him staying, but he refused to stay. His family could not pick him up, so a cab was called, and he was discharged home via that cab at 1640 yesterday. Dictated by COURTNEY Ibarra for Yury Zamora MD cc: COURTNEY Ibarra MD
== END 2020-01-10 16:40 | disposition left against medical advice (07) | DRG 208 ==
LOC: SUPCPDRO → ED 13:51 → EDIPHOLD 18:41 → ICU 23:38
PROVIDERS: ATTEND Internal Medicine

== ENCOUNTER 2020-01-14 22:20 | Inpatient (IN) ==
[2020-01-14] MEDS ORDERED: NS 1,000 ML IV ONE ×2 (23:10→23:50)
[2020-01-14 23:20] LABS: BASO# 0.02 X1000 (0.0-0.2); BASO% 0.1 % (0.0-0.8); EOS# 0.02 X1000 (0.0-0.7); EOS% 0.1 % (0.0-10.0); HEMATOCRIT 36.5 % (42.0-52.0); HEMOGLOBIN 11.5 g/dL (14.0-18.0); IMM GRAN# 0.03 X1000 (0.0-0.04); IMM GRAN% 0.2 % (0.0-0.5); MCH 23.8 PG (27-31); MCHC 31.5 g/dL (33-37); MCV 75.6 FL (81-99); MONO# 0.73 X1000 (0.11-0.59); MONO% 4.4 % (1.7-9.3); MPV 9.5 FL (7.4-10.4); NEUT# 14.91 X1000 (1.4-6.5); NEUT% 89.2 % (42.2-75.2); PLT 305 X1000 (130-400); RBC 4.83 XMIL (4.7-6.1); RDW 16.4 % (11.5-14.5); WBC 16.71 X1000 (4.8-10.8)
--- NOTE | 2020-01-14 23:26 | PROVIDER DOCUMENTATION ---
This chart was entered by Diya Fall Scribkayla, acting as scribe for Blake Chappell MD. HPI-Neurological Disorder - General Source: EMS ([facility] / [facility]) Unable to obtain history due to:: altered - History of Present Illness-Neuro Severity: reports: severe Onset/Duration: reports: this evening Timing: reports: still present Context: reports: found unresponsive by family Character of Altered Mental Status: reports: combative (when pt rouses), unresponsive <Blake Chappell - Last Filed: 01/15/20 06:38> <VinodAlen - Last Filed: 01/15/20 08:05> - General Chief Complaint: Altered Mental Status Stated Complaint: AMS FEVER Time Seen by Provider: 01/14/20 22:55 - History of Present Illness-Neuro Nature of Presenting Problem: Pt is a white male,Alen Wallace, :65, with history of diabetes,DKA and respiratory failure requiring ICU admission to [facility] last week, hepatitis C, methamphetamine abuse, renal insufficiency, and dysphagia due to esophagitis who presents by [facility] with altered mental status and reported fever. Per EMS pt was picked up at his daughter's house but she did not have ID for him. Per EMS pt's daughter stated that pt left the hospital AMA earlier in the week. Pt is unresponsive to normal questioning and combative with firmer questioning. Pt is thin and pale in appearance. (Blake Chappell) Review of Systems - Adult - REVIEW OF SYSTEMS - ADULT ROS:: unobtainable per condition Constitutional: reports: no symptoms reported Eyes: reports: no symptoms reported Ears, Nose, Mouth & Throat: reports: no symptoms reported Cardiovascular: reports: no symptoms reported Respiratory: reports: no symptoms reported Gastrointestinal: reports: no symptoms reported Genitourinary: reports: no symptoms reported Musculoskeletal: reports: no symptoms reported Integumentary: reports: no symptoms reported Neurological: reports: no symptoms reported Psychiatric: reports: no symptoms reported Endocrine: reports: no symptoms reported Hematologic/Lymphatic: reports: no symptoms reported Allergic/Immunologic: reports: no symptoms reported All Other Systems: Reviewed and Negative <Blake Chappell - Last Filed: 01/15/20 06:38> Past History - Adult - PAST MEDICAL HISTORY-ADULT Review of Records: reports: Nursing Assessment Review, Medications Reviewed <Blake Chappell - Last Filed: 01/15/20 06:38> Physical Exam- Neurological - Physical Exam-Neuro Exam Limited by: Altered Mental Status Initial Vital Signs Reviewed: Yes (HR 103) General Appearance: thin, combative (when roused), other (unresponsive) Eye Exam: bilateral eye: PERRL HENMT: moist mucous membranes Head Injury: other (healing abrasion over forehead) Respiratory: lungs clear, no respiratory distress, no accessory muscle use Cardiovascular: normal peripheral pulses, tachycardia Abdominal Exam: non tender, soft Lymphatic: no adenopathy Extremity: normal range of motion, non-tender Motor/Sensory: no motor deficit, no sensory deficit Neurologic: grossly normal Integumentary: warm/dry Psych/Mental Status: disheveled - Glascow Coma Scale Best Eye Response: (4) open spontaneously Best Verbal Response: (5) oriented Best Motor Response: (6) obeys commands Total Glascow Score: 15 <Blake Chappell - Last Filed: 01/15/20 06:38> Progress - PLAN OF CARE/RESULTS Result Diagrams: 01/14/20 23:08 01/14/20 23:08 - REASSESSMENT Reassessment #1 Time Reassessed: 06:00 Status: improving Reassessment Comment: patient is now awake and states he is Alen Wallace,:65 - XRAY 1 XRAY Study: Chest XRAY Interpretation: NAD - CT/MRI 1 CT Study: Head CT Results: NAD - CHANGE OF SHIFT REPORT (ED Provider) 1 Report Given and Care Transferred to:: Dr Brock Time of Transfer: 07:00 Items Pending: Physician Consult/Arrival (call report to hospitalist environmental engineering technician, Dr. Parrish) <Blake Chappell - Last Filed: 01/15/20 06:38> - PLAN OF CARE/RESULTS Result Diagrams: 01/14/20 23:08 01/14/20 23:08 - EKG 1 Time of EKG reading by physician:: 08:04 EKG Read and Signed by:: Alen Brock EKG Interpretation (*Must complete 3 of following elements*): Abnormal Rate: 101 Rhythm: sinus tac [place]: normal QRS: LVH LA Interval: shortened ST Wave: normal Prior EKG Comparison: no prior EKG <Alen BrockMarkie - Last Filed: 01/15/20 08:05> - PLAN OF CARE/RESULTS Progress/Plan/Lab Results: Vital Signs - 8 hr 01/15/20 06:15 01/15/20 07:38 Temperature 98.2 F Pulse Rate 84 100 H Respiratory Rate 19 20 Blood Pressure 178/91 193/106 O2 Sat by Pulse Oximetry 98 97 Laboratory Results - last 24 hr 01/14/20 01/14/20 01/14/20 23:08 23:08 23:50 WBC 16.71 H RBC 4.83 Hgb 11.5 L Hct 36.5 L MCV 75.6 L MCH 23.8 L MCHC 31.5 L RDW Std Deviation 16.4 H Plt Count 305 MPV 9.5 Immature Gran % (Auto) 0.2 Neut % (Auto) 89.2 H Lymph % (Auto) 6.0 L [place] % (Auto) 4.4 Eos % (Auto) 0.1 Baso % (Auto) 0.1 Immature Gran # (Auto) 0.03 Neut # (Auto) 14.91 H Lymph # (Auto) 1.00 L [place] # (Auto) 0.73 H Eos # (Auto) 0.02 Baso # (Auto) 0.02 Specimen Type ARTERIAL Sample Site L RADIAL pH 7.36 pCO2 26 L pO2 85 HCO3 17.7 L Base Excess -9.2 L Oxyhemoglobin 94.5 L ABG O2 Sat (Calculated) 16.2 ABG O2 Saturation 98.2 ABG Carboxyhemoglobin 2.50 ABG Methemoglobin 1.3 Edvin Test YES A-a O2 Difference 32.0 Total Hemoglobin 12.1 Lactate 1.40 Blood Gas Modality ROOM AIR FiO2 % 21.0 Sodium 131 L Potassium 4.6 Chloride 88 L Carbon Dioxide 15 L Anion Gap 28 BUN 31 H Creatinine 1.0 Estimated GFR/1.73 m2 > 60 BUN/Creatinine Ratio 31 Glucose 443 H* POC Glucose Calculated Osmolality 288 Calcium 9.0 Total Bilirubin 0.30 AST 17 ALT 18 Alkaline Phosphatase 104 Total Protein 7.0 Albumin 3.6 Globulin 3.0 Albumin/Globulin Ratio 1.0 Plasma Lactate Urine Source Urine Color Urine Turbidity Urine pH Ur Specific [place] Urine Protein Ur Glucose (Stick) Ur Ketones (Stick) Urine Blood Urine Nitrite Urine Bilirubin Urobilinogen Dipstick Urine Leukocytes Urine WBC (Auto) Urine RBC (Auto) U Epithel Cells (Auto) Urine Bacteria (Auto) Urine Opiates Screen Ur Oxycodone Screen Urine Methadone Screen U Propoxyphene Qual Ur Barbituates Screen Ur Tricyclics Screen Ur Phencyclidine Scrn Ur Amphetamines Screen U Methamphetamines Scrn U Benzodiazepines Scrn Urine Cocaine Screen U Cannabinoids Screen 01/15/20 01/15/20 01/15/20 00:10 00:33 00:33 WBC RBC Hgb Hct MCV MCH MCHC RDW Std Deviation Plt Count MPV Immature Gran % (Auto) Neut % (Auto) Lymph % (Auto) [place] % (Auto) Eos % (Auto) Baso % (Auto) Immature Gran # (Auto) Neut # (Auto) Lymph # (Auto) [place] # (Auto) Eos # (Auto) Baso # (Auto) Specimen Type Sample Site pH pCO2 pO2 HCO3 Base Excess Oxyhemoglobin ABG O2 Sat (Calculated) ABG O2 Saturation ABG Carboxyhemoglobin ABG Methemoglobin Edvin Test A-a O2 Difference Total Hemoglobin Lactate Blood Gas Modality FiO2 % Sodium Potassium Chloride Carbon Dioxide Anion Gap BUN Creatinine Estimated GFR/1.73 m2 BUN/Creatinine Ratio Glucose POC Glucose Calculated Osmolality Calcium Total Bilirubin AST ALT Alkaline Phosphatase Total Protein Albumin Globulin Albumin/Globulin Ratio Plasma Lactate 1.1 Urine Source CLEAN CATCH Urine Color STRAW Urine Turbidity CLEAR Urine pH 6.0 Ur Specific [place] 1.026 Urine Protein 50 A Ur Glucose (Stick) >1000 A Ur Ketones (Stick) 100 A Urine Blood TRACE A Urine Nitrite NEGATIVE Urine Bilirubin NEGATIVE Urobilinogen Dipstick NORMAL Urine Leukocytes NEGATIVE Urine WBC (Auto) <10 Urine RBC (Auto) <10 U Epithel Cells (Auto) <10 Urine Bacteria (Auto) NEGATIVE Urine Opiates Screen NONE DETECTED Ur Oxycodone Screen NONE DETECTED Urine Methadone Screen NONE DETECTED U Propoxyphene Qual NONE DETECTED Ur Barbituates Screen NONE DETECTED Ur Tricyclics Screen NONE DETECTED Ur Phencyclidine Scrn NONE DETECTED Ur Amphetamines Screen PRESUMPTIVE POSITIVE A U Methamphetamines Scrn PRESUMPTIVE POSITIVE A U Benzodiazepines Scrn NONE DETECTED Urine Cocaine Screen NONE DETECTED U Cannabinoids Screen NONE DETECTED 01/15/20 01/15/20 01:23 07:48 WBC RBC Hgb Hct MCV MCH MCHC RDW Std Deviation Plt Count MPV Immature Gran % (Auto) Neut % (Auto) Lymph % (Auto) [place] % (Auto) Eos % (Auto) Baso % (Auto) Immature Gran # (Auto) Neut # (Auto) Lymph # (Auto) [place] # (Auto) Eos # (Auto) Baso # (Auto) Specimen Type Sample Site pH pCO2 pO2 HCO3 Base Excess Oxyhemoglobin ABG O2 Sat (Calculated) ABG O2 Saturation ABG Carboxyhemoglobin ABG Methemoglobin Edvin Test A-a O2 Difference Total Hemoglobin Lactate Blood Gas Modality FiO2 % Sodium Potassium Chloride Carbon Dioxide Anion Gap BUN Creatinine Estimated GFR/1.73 m2 BUN/Creatinine Ratio Glucose POC Glucose 279 H 337 H Calculated Osmolality Calcium Total Bilirubin AST ALT Alkaline Phosphatase Total Protein Albumin Globulin Albumin/Globulin Ratio Plasma Lactate Urine Source Urine Color Urine Turbidity Urine pH Ur Specific [place] Urine Protein Ur Glucose (Stick) Ur Ketones (Stick) Urine Blood Urine Nitrite Urine Bilirubin Urobilinogen Dipstick Urine Leukocytes Urine WBC (Auto) Urine RBC (Auto) U Epithel Cells (Auto) Urine Bacteria (Auto) Urine Opiates Screen Ur Oxycodone Screen Urine Methadone Screen U Propoxyphene Qual Ur Barbituates Screen Ur Tricyclics Screen Ur Phencyclidine Scrn Ur Amphetamines Screen U Methamphetamines Scrn U Benzodiazepines Scrn Urine Cocaine Screen U Cannabinoids Screen Orders Category Date Time Status Cardiac Monitoring DIRECTED Care 01/15/20 07:59 Active ED: Urine Bedside NOW Care 01/15/20 07:59 Active FSBS/Accucheck Result Q15M Care 01/15/20 08:02 Active FSBS/Accucheck Result Q1H Care 01/14/20 23:54 Active Hypoglycemia/FSBS <50 or Range of 50-70 PRN Care 01/15/20 08:02 Active Notify Physician ORDERED Care 01/15/20 08:02 Active Saline Loc DIRECTED Care 01/15/20 08:02 Active Saline Loc NOW Care 01/15/20 07:59 Active Vital Signs Order Q1H Care 01/15/20 07:59 Active CHEST-PORTABLE [RAD] Stat Exams 01/14/20 23:[address] HEAD W/O CONTRAST [CT] Stat Exams 01/14/20 23:07 Taken ABG [RESP] Routine Lab 01/14/20 23:50 Completed BLOOD CULTURE [BLDCUL] Stat Lab 01/15/20 01:01 Ordered CBC WITH ELECTRONIC DIFF [HEME] Stat Lab 01/14/20 23:08 Completed CK PROFILE [SP CHEM] Stat Lab 01/15/20 07:59 Uncollected CMP [COMPREHENSIVE METABOLIC PANEL] [CHEM] Stat Lab 01/14/20 23:08 Completed CMP [COMPREHENSIVE METABOLIC PANEL] [CHEM] Stat Lab 01/15/20 07:58 Uncollected COMPREHENSIVE METABOLIC PANEL [CHEM] Stat Lab 01/15/20 07:56 Ordered COMPREHENSIVE METABOLIC PANEL [CHEM] Stat Lab 01/15/20 07:59 Uncollected LACTATE, PLASMA [CHEM] Stat Lab 01/15/20 00:10 Completed LACTATE, PLASMA [CHEM] Stat Lab 01/15/20 07:59 Uncollected MAGNESIUM [CHEM] Stat Lab 01/15/20 07:56 Uncollected PHOSPHORUS [CHEM] Stat Lab 01/15/20 07:59 Ordered POTASSIUM [CHEM] Timed Lab 01/15/20 07:59 Uncollected TROPONIN T HIGH SENSITIVITY Stat Lab 01/15/20 07:59 Uncollected URINALYSIS W/POSS RFLX CULT [URINALYSIS] Stat Lab 01/15/20 00:33 Completed URINE DRUG SCREEN PL Urgent Lab 01/15/20 00:33 Completed 0.9% Sodium Chloride Inj [Ns] 1,000 ml Med 01/15/20 08:00 Ordered IV 500 mls/hr 0.9% Sodium Chloride Inj [Ns] 1,000 ml Med 01/14/20 23:10 Discontinued IV 999 mls/hr 0.9% Sodium Chloride Inj [Ns] 1,000 ml Med 01/14/20 23:50 Discontinued IV 999 mls/hr CefTRIAXONE [Rocephin] 1 gm Med 01/14/20 23:53 Discontinued 0.9% Sodium Chloride Inj [Ns] 50 ml IV NOW Dextrose 50% Syringe [D50w Syringe] Med 01/15/20 07:58 Ordered 25 ml IV PRN PRN Dextrose 50% Syringe [D50w Syringe] Med 01/15/20 07:58 Ordered 50 ml IV PRN PRN Insulin 1 Unit/ml Drip (Dka Protocol) Med 01/15/20 08:00 Ordered 0.9% Sodium Chloride Inj [Ns] 100 ml Insulin Human Regular [Humulin R] 100 unit IV Per Protocol Insulin Human Regular ([place] [Humulin R ([place])] Med 01/14/20 23:56 Dis continued 12 units .ROUTE .STK-MED ONE Insulin Human Regular [Humulin R] Med 01/14/20 23:49 Discontinued 12 unit IV NOW ONE Magnesium Sulfate 2 gm/S.w.i. Med 01/15/20 07:58 Ordered 2 gm in 50 ml IV ONCE PRN Potassium Chloride 10% Liquid Med 01/15/20 07:58 Ordered 20 meq PO ONCE PRN PRN Potassium Chloride 20 Meq/Swi Med 01/15/20 07:58 Ordered 20 meq in 100 ml IV ONCE PRN Potassium Chloride 20 Meq/Swi Med 01/15/20 07:58 Ordered 20 meq in 100 ml IV ONCE PRN Potassium Chloride 20% Liquid Med 01/15/20 07:58 Ordered 40 meq PO ONCE PRN PRN Sodium Bicarbonate 8.4% 100 meq Med 01/15/20 07:58 Ordered Water, Sterile Inj [Sterile Water Inj] 500 ml IV ONCE PRN Sodium Phosphate 30 mmol Med 01/15/20 07:58 Ordered Dextrose 5%-Water Inj [D5w] 250 ml IV ONCE PRN Hypoglycemia Stat Oth 01/15/20 07:59 Ordered paged hospitalist environmental engineering technician 2 hours ago, no response so far. (Blake Chappell) Departure - Departure Date of Disposition Decision: 01/15/20 Time of Disposition Decision: 05:17 Certified Medical Emergency: Emergent - Critical Care Note This patient required my direct & personal management of CC.: No <Blake Chappell - Last Filed: 01/15/20 06:38> <Alen Brock - Last Filed: 01/15/20 08:05> - Departure DIAGNOSIS: Methamphetamine abuse AMS (altered mental status) Qualifiers: Altered mental status type: unspecified Qualified Code(s): R41.82 - Altered mental status, unspecified Leukocytosis Qualifiers: Leukocytosis type: unspecified Qualified Code(s): D72.829 - Elevated white blood cell count, unspecified Uncontrolled diabetes mellitus Qualifiers: Diabetes mellitus type: type 2 Glycemic state: with hyperglycemia Qualified Code(s): E11.65 - Type 2 diabetes mellitus with hyperglycemia Disposition: ADMITTED INPATIENT 09 Condition: Stable Referrals and Follow-Ups: None,PCP [Primary Care Provider] - Attestation - Physician/ SUSI Attestation Patient care was provided by Advanced Practice Provider:: No The physician spent face to face time with patient:: Yes Advanced Practice Provider documentation review:: Supervising physician onsite and consulted in the evaluation and care of this patient. The physician did have a face to face encounter with the patient. <Blake Chappell - Last Filed: 01/15/20 06:38> - NIH Stroke Scale Level of Consciousness: 1-Drowsy, but arousable with minimal stimulation LOC Questions (ask month and age): 1-Answers One Correctly Best Gaze (horizontal eye movement): 0-Normal Visual (use finger movement, counting or visual threat): 0-No Visual Loss Facial Palsy (show teeth or raise eyebrows & close eyes tght: 0-Symmetrical Movement Motor Function-left arm: 0-Normal Motor Function-right arm: 0-Normal Motor Function-left le-Normal Limb Ataxia([id number], or heel to sánchez): 0-Untestable Dysarthria(Pt read words or say words Ex.Mama,Tip-Top,Thanks: 1-Mild-Mod Slurring Words NIH Total Score: 3 NIH Scale Untestable Comment: patient is uncooperative <Blake Chappell - Last Filed: 01/15/20 06:38> This chart was documented by the indicated scribe, (Diya Fall, Scribe) and accurately reflects the services I performed and decisions made by me, Blake Chappell MD, as attested by the provider's signature.
[2020-01-14 23:37] LABS: ESTIMATED GFR > 60
[2020-01-14 23:42] LABS: AGAP 28; ALBUMIN 3.6 g/dL (3.5-5.0); ALKALINE PHOSPHATASE 104 U/L (32-122); BUN 31 mg/dL (8-22); CHLORIDE 88 mmol/L (98-107); COSMO 288; GOT 17 U/L (10-34); GPT 18 U/L (10-44); POTASSIUM 4.6 mmol/L (3.5-5.1); SODIUM 131 mmol/L (136-145); TCO2 15 mmol/L (25-35)
[2020-01-14 23:45] LABS: GLUCOSE 443 mg/dL (70-104)
[2020-01-14] MEDS ORDERED: HUMULIN R IV ONE (23:49)
[2020-01-14] MEDS ORDERED: ROCEPHIN 1 GM in NS 50 ML IV ONE (23:53)
[2020-01-14] MEDS ORDERED: HUMULIN R (PARKWAY) ONE (23:56)
[2020-01-15 00:05] LABS: BE -9.2 mmoll (-3.0-3.0); BLOOD TYPE ARTERIAL; HCO3-(ACT) 17.7 mmoll (20.0-26.0); METHB 1.3 % (0.0-1.5); O2(CT) 16.2 mL/dL (15.0-23.0); O2HB 94.5 % (95.0-99.0); PCO2(98.6) 26 mmHg (35-45); PO2(98.6) 85 mmHg (60-100); SAMPLE BLOOD; SAO2 98.2 % (95.0-100.0); THB 12.1 g/dL (11.5-17.4); pH(98.6) 7.36 (7.35-7.45)
[2020-01-15 00:07] LABS: MODALITY ROOM AIR
[2020-01-15 00:08] LABS: ALLEN TEST YES
[2020-01-15 00:41] LABS: URINE SOURCE CLEAN CATCH
[2020-01-15 00:44] LABS: BILIRUBIN URINE NEGATIVE (NEGATIVE); BLOOD URINE TRACE (NEGATIVE); COLOR STRAW; GLUCOSE URINE >1000 mg/dL (NEGATIVE); KETONE URINE 100 mg/dL (NEGATIVE); LEUKOCYTES URINE NEGATIVE (NEGATIVE); NITRITE URINE NEGATIVE (NEGATIVE); PROTEIN URINE 50 mg/dL (NEGATIVE); SP GRAVITY URINE 1.026; TURBIDITY URINE CLEAR (CLEAR); UROBILINOGEN URINE NORMAL (NORMAL)
[2020-01-15 00:45] LABS: UR EPITHELIAL CELLS <10 /HPF (<10); URINE BACTERIA NEGATIVE /HPF; URINE RBC <10 /HPF (<10); URINE WBC <10 /HPF (<10)
[2020-01-15 00:52] LABS: UR AMPHETAMINES QUAL PRESUMPTIVE POSITIVE (NONE DETECT); UR BARBITUATES QUAL NONE DETECTED (NONE DETECT); UR BENZODIAZEPIN QUAL NONE DETECTED (NONE DETECT); UR CANNABINOIDS QUAL NONE DETECTED (NONE DETECT); UR COCAINE QUAL NONE DETECTED (NONE DETECT); UR METHADONE QUAL NONE DETECTED (NONE DETECT); UR METHAMPHETAMINE QUAL PRESUMPTIVE POSITIVE (NONE DETECT); UR OPIATES QUAL NONE DETECTED (NONE DETECT); UR OXYCODONE QUAL NONE DETECTED (NONE DETECT); UR PCP QUAL NONE DETECTED (NONE DETECT); UR PROPOXYPHENE QUAL NONE DETECTED (NONE DETECT); UR TCA QUAL NONE DETECTED (NONE DETECT)
[2020-01-15] MEDS ORDERED: SODIUM BICARBONATE 8.4% 100 MEQ in STERILE WATER INJ. 500 ML IV PRN ×2 (07:58→09:38)
[2020-01-15] MEDS ORDERED: POTASSIUM CHLORIDE 10% LIQUID PO PRN ×2 (07:58→09:38)
[2020-01-15] MEDS ORDERED: MAGNESIUM SULFATE 2 GM/S.W.I. 2 GM/50 ML IVPB IV PRN ×2 (07:58→09:38)
[2020-01-15] MEDS ORDERED: POTASSIUM CHLORIDE 20 MEQ/SWI 20 MEQ/100 ML IVPB IV PRN ×3 (07:58→09:38)
[2020-01-15] MEDS ORDERED: SODIUM PHOSPHATE 30 MMOL in D5W 250 ML IV PRN ×2 (07:58→09:38)
[2020-01-15] MEDS ORDERED: POTASSIUM CHLORIDE 20% LIQUID PO PRN ×2 (07:58→09:38)
[2020-01-15] MEDS ORDERED: D50W SYRINGE IV PRN ×2 (07:58→09:38)
[2020-01-15] MEDS ORDERED: HUMULIN R 100 UNIT in NS 100 ML IV SCH ×2 (08:00→09:45)
[2020-01-15] MEDS ORDERED: NS 1,000 ML IV SCH (08:00)
--- NOTE | 2020-01-15 08:44 | Diag Imaging Result Doc PS360 ---
EXAM: CHEST-PORTABLE INDICATION: AMS TECHNIQUE: One view COMPARISON: None. FINDINGS: There are a couple of calcified granulomata bilaterally. The lungs are grossly clear. There is no discrete pleural fluid collection or pneumothorax. The cardiomediastinal silhouette and central vasculature are grossly unremarkable. IMPRESSION: No evidence of acute pathology by plain radiograph. Electronically signed by Sedrick Neil 01/15/2020 8:42 AM
[2020-01-15 08:53] LABS: ESTIMATED GFR > 60
[2020-01-15 08:55] LABS: AGAP 31; ALBUMIN 3.7 g/dL (3.5-5.0); ALKALINE PHOSPHATASE 112 U/L (32-122); BUN 26 mg/dL (8-22); CALCIUM 8.6 mg/dL (8.8-10.2); CHLORIDE 93 mmol/L (98-107); CK PROFILE 66 U/L (24-204); COSMO 288; CREATININE 0.9 mg/dL (0.7-1.2); GLUCOSE 334 mg/dL (70-104); GOT 15 U/L (10-34); GPT 17 U/L (10-44); MAGNESIUM 2.1 mg/dL (1.5-2.7); POTASSIUM 5.1 mmol/L (3.5-5.1); SODIUM 135 mmol/L (136-145); TCO2 11 mmol/L (25-35); TOTAL PROTEIN 7.3 g/dL (6.3-8.3)
--- NOTE | 2020-01-15 09:26 | Diag Imaging Result Doc PS360 ---
EXAM: CT HEAD W/O CONTRAST INDICATION: AMS TECHNIQUE: This exam was performed using automated exposure control, adjustment of mA or kV according to patient size, and/or use of iterative reconstruction technique. COMPARISON: None. FINDINGS: There is mild motion artifact at the uppermost slices. There is no definite acute infarct given the limited sensitivity of CT versus MRI. There is no discrete intracranial mass, mass effect, or intracranial hemorrhage. The surrounding soft tissues and bony structures are essentially unremarkable. IMPRESSION: No evidence of acute intracranial pathology. Electronically signed by Sedrick Neil 01/15/2020 9:24 AM
[2020-01-15] MEDS ORDERED: POTASSIUM CHLORIDE 40 MEQ/SWI 40 MEQ/100 ML IVPB IV PRN (09:38)
[2020-01-15] MEDS ORDERED: D5 NS 1,000 ML IV PRN (09:38)
[2020-01-15] MEDS ORDERED: TYLENOL PO PRN (09:46)
[2020-01-15] MEDS ORDERED: VANCOMYCIN IV PER PHARMACY MISC SCH (10:00)
[2020-01-15 10:09] LABS: HEMOGLOBIN A1C 10.1 % (4.8-6.0)
[2020-01-15] MEDS ORDERED: APRESOLINE IV PRN (10:15)
[2020-01-15] MEDS: ZOSYN 3.375 GM in NS 50 ML IV SCH ×3 (10:20→21:51)
[2020-01-15 10:36] LABS: AGAP 25; BUN 24 mg/dL (8-22); CALCIUM 8.2 mg/dL (8.8-10.2); CHLORIDE 98 mmol/L (98-107); COSMO 286; CREATININE 0.9 mg/dL (0.7-1.2); ESTIMATED GFR > 60; GLUCOSE 276 mg/dL (70-104); PHOSPHORUS 2.2 mg/dL (2.7-4.5); POTASSIUM 3.9 mmol/L (3.5-5.1); SODIUM 136 mmol/L (136-145); TCO2 13 mmol/L (25-35)
[2020-01-15] MEDS: NS 1,000 ML IV SCH ×2 (10:50→18:37)
[2020-01-15 10:56] LABS: AMYLASE 33 U/L (20-200); LIPASE 48 U/L (13-60)
--- NOTE | 2020-01-15 11:04 | HISTORY AND PHYSICAL ---
PRIMARY CARE PROVIDER: No one. CHIEF COMPLAINT: Unresponsive or lethargic. HISTORY OF PRESENT ILLNESS: Mr. Alen Wallace is a 54-year-old, male with a medical history of frequent bouts of DKA, respiratory failure, hepatitis C, amphetamine/methamphetamine abuse, dysphagia due to esophagitis, who actually had a recent admission here just this month. He was in the ICU at that time. He left against medical advice. He was at his daughter's house. EMS picked him up from there. She called due to his altered mental status and fever. Originally, he was unresponsive to normal questioning, combative to firmer questioning. He is emaciated. He is pale. Laboratory data reveals that he still has some continued mild diabetic ketoacidosis, mild acetones in his toxicology, amphetamines and methamphetamines in his toxicology as well. Very lethargic. Takes a lot of stimulation to make him wake up and answer questions, so we are going to transfer him to [facility] to [facility], get him started on DKA protocol. He also looks like he might possibly have some cellulitis in the left hand. It is red but it has good capillary refill. PAST MEDICAL HISTORY: 1. DKA with uncontrolled diabetes. 2. Encephalopathy. 3. History of acute kidney injury. 4. Dysphagia. 5. Hepatitis C. 6. Pulmonary emboli. 7. Last discharge summary showed left-sided body discoloration and cyanosis. 8. Severe protein calorie malnutrition. 9. Recent acute respiratory failure requiring intubation. 10. Esophageal stricture. SURGICAL HISTORY: 1. On 01/09/2029, he had an EGD, had esophagitis, had a stricture. They were unable to do anything with the stricture. The recommendation was to do an EGD as an outpatient in 6 to 8 weeks to allow for healing and then maybe even do a dilatation then. 2. History of esophageal dilatation. 3. Left second finger digit looks like partial amputation possibly. SOCIAL HISTORY: Amphetamine abuse. Otherwise unable to obtain any history on that. He is too lethargic. FAMILY HISTORY: Old records show mother from COPD and his father when the patient was young, but was not sure why. ALLERGIES: Unknown. HOME MEDICATIONS: Unknown. REVIEW OF SYSTEMS: Unable to obtain. PHYSICAL EXAMINATION: VITAL SIGNS: Temperature 98.2 degrees, heart rate 100, respiratory rate 20, blood pressure 193/106, O2 saturation 97% on room air, 5 feet 7 inches tall, 125 pounds, BMI is 19.6. GENERAL: Mr. Alen Wallace is a 54-year-old, male. He is in no acute distress but he is very lethargic. It takes a lot of stimulation to make him respond to questions. HEENT: Atraumatic, normocephalic. Pupils are equal and reactive. Mucous membranes are moist. NECK: Trachea midline. CARDIOVASCULAR: S1, S2. Tachycardic rate and rhythm. No rubs, gallops, or murmurs. He has got 2+ lower extremity pitting edema. There are +2 radial pulses and +2 dorsalis pedal pulses. Negative for JVD or carotid bruits. PULMONARY: Mild expiratory wheezes noted throughout and rhonchi in the bases. Tolerating room air. No accessory muscle use or work of breathing noted. GI: Soft, concave. Hypoactive bowel sounds x4. EXTREMITIES: He will move them to pain. Otherwise, he is very lethargic and just sleeping. He is not moving his extremities. NEUROLOGIC: Lethargic. With a lot of stimuli, he will wake up and answer some questions but he is confused. He does not wake up enough to follow commands. SKIN: Warm, dry, intact except for left hand appears to be red in color, maybe even cellulitic but it may be a circulation problem. LABORATORY DATA: White blood cells 16,000, hemoglobin 11, hematocrit 36, platelet count 305,000. ABGs on room air, pH 7.36, pCO2 of 26, PO2 of 85, bicarb 17, base excess -9, saturation 94%, lactate 1.4. Sodium 135, potassium 5.1, BUN 26, creatinine 0.9, glucose 286, hemoglobin A1c is 10.1, calcium 8.6, magnesium 2.1. Bilirubin 0.30, AST 15, ALT 17. CK 66, troponin 34. Albumin 3.7, lactate 1.1 and 0.7. Urinalysis, 50 protein, greater than 1000 glucose, 100 ketones, trace blood, otherwise negative. Urine drug screen positive for amphetamines and methamphetamine. Acetone level small. IMAGING: Chest x-ray, no evidence of acute pathology. Head CT, no evidence of acute intracranial pathology. ASSESSMENT AND PLAN: 1. Uncontrolled diabetes mellitus type 2 with mild diabetic ketoacidosis. Hemoglobin A1c is at 10.1, glucose is now less than 300. Not extremely acidotic but bicarb 17 and base excess is - 9 with a pH of 7.36, some acetone positive. The anion gap originally was 28. Now it is up to 31 and so he has been started on diabetic ketoacidosis protocol. He will monitored in the PVC. 2. Metabolic encephalopathy, toxic encephalopathy secondary to diabetic ketoacidosis and also due to methamphetamine abuse. 3. Leukocytosis. It could all be inflammatory but at home, they reported a fever. He is afebrile here. Left hand may be cellulitis. It is red and I am not sure how he consumes his methamphetamine so we will start him on broad-spectrum antibiotics. 4. Hypertension. We can add as-needed hydralazine. 5. Recent history of dysphagia. He is currently nothing per oral. 6. History of hepatitis C. 7. History of pulmonary embolism, so we will do at least deep venous thrombosis prophylaxis. 8. Deep venous thrombosis prophylaxis. Lovenox. 9. Recent acute respiratory failure requiring intubation earlier this month. Currently, he is stable, maintaining his airway and oxygenation. Arterial blood gases are stable as far as respiratory is concerned. Either way, he still has albuterol and Atrovent nebulizers every 6 hours. 10. Methamphetamine abuse. Dictated by COURTNEY Hassan for Sherwin Vargas MD cc: COURTNEY Hassan MD
--- NOTE | 2020-01-15 11:29 | EKG Report ---
Test Performed on : 01/15/2020 07:20:15 AM Test Reason : cp Blood Pressure : / mmHG Vent. Rate : 101 BPM Atrial Rate : 101 BPM P-R Int : 114 ms QRS Dur : 078 ms QT Int : 314 ms P-R-T Axes : 059 051 046 degrees QTc Int : 407 ms Sinus tachycardia. Possible Left atrial enlargement Nonspecific T wave abnormality Abnormal ECG No previous ECGs available Unconfirmed Result
[2020-01-15] MEDS ORDERED: VANCOMYCIN 1,700 MG in NS 250 ML IV ONE (12:30)
[2020-01-15 14:48] LABS: AGAP 13; BUN 21 mg/dL (8-22); CALCIUM 8.3 mg/dL (8.8-10.2); CHLORIDE 105 mmol/L (98-107); COSMO 282; CREATININE 0.9 mg/dL (0.7-1.2); ESTIMATED GFR > 60; GLUCOSE 161 mg/dL (70-104); PHOSPHORUS 2.1 mg/dL (2.7-4.5); POTASSIUM 3.8 mmol/L (3.5-5.1); SODIUM 138 mmol/L (136-145); TCO2 20 mmol/L (25-35)
[2020-01-15] MEDS: DUONEB (A & A) INH SCH ×2 (15:25→21:00)
[2020-01-15] MEDS: LANTUS INSULIN SUBQ SCH (15:41)
[2020-01-15] MEDS: HUMULIN R SUBQ SCH ×2 (16:51→20:02)
--- NOTE | 2020-01-15 18:04 | HISTORY AND PHYSICAL ---
Patient presented to the hospital. He was just in [facility] a week ago. Does have a history of diabetes. He has been in DKA before. Has a history of methamphetamine abuse. This time his urine drug screen again is positive for methamphetamines. He appears to be in early DKA. We are going to admit him to the hospital, place him on insulin drip and will follow. cc: Sherwin Vargas MD
[2020-01-15] MEDS: ZOFRAN IV PRN (20:14)
[2020-01-15] MEDS: D50W SYRINGE IV PRN (21:51)
[2020-01-16] MEDS: DUONEB (A & A) INH SCH ×4 (03:43→21:15)
[2020-01-16] MEDS: ZOSYN 3.375 GM in NS 50 ML IV SCH ×2 (04:57→09:52)
[2020-01-16] MEDS: LOVENOX SUBQ SCH (05:03)
--- NOTE | 2020-01-16 06:39 | Diag Imaging Result Doc PS360 ---
CHEST-PORTABLE - 01/16/2020 INDICATION: sob COMPARISON: 01/14/2020 FINDINGS: The lungs are normally expanded and clear. Heart size and mediastinal contours are normal. No pneumothorax or pleural effusion. IMPRESSION: Negative exam. Electronically signed by Alejandro Izquierdo 01/16/2020 6:37 AM
[2020-01-16] MEDS: HUMULIN R SUBQ SCH ×4 (06:43→22:27)
[2020-01-16] MEDS: D50W SYRINGE IV PRN (06:44)
--- NOTE | 2020-01-16 06:48 | EKG Report ---
Test Performed on : 01/16/2020 06:35:23 AM Test Reason : chest pain Blood Pressure : / mmHG Vent. Rate : 096 BPM Atrial Rate : 096 BPM P-R Int : 110 ms QRS Dur : 080 ms QT Int : 360 ms P-R-T Axes : 070 069 071 degrees QTc Int : 454 ms Sinus rhythm. with short SD Possible Left atrial enlargement Nonspecific T wave abnormality Abnormal ECG When compared with ECG of 05-JAN-2020 07:38, Nonspecific T wave abnormality now evident in Anterior leads Confirmed by Harley Fernandez MD ([id number]) on 01/17/2020 7:33:27 PM
[2020-01-16 06:50] LABS: BASO# 0.03 X1000 (0.0-0.2); BASO% 0.4 % (0.0-0.8); EOS# 0.05 X1000 (0.0-0.7); EOS% 0.7 % (0.0-10.0); HEMOGLOBIN 11.9 g/dL (14.0-18.0); LYMPH# 0.98 X1000 (1.2-3.4); MCH 23.5 PG (27-31); MCHC 31.3 g/dL (33-37); MCV 75.1 FL (81-99); MONO# 0.28 X1000 (0.11-0.59); MONO% 3.7 % (1.7-9.3); MPV 9.5 FL (7.4-10.4); NEUT# 6.21 X1000 (1.4-6.5); NEUT% 82.2 % (42.2-75.2); PLT 347 X1000 (130-400); RBC 5.06 XMIL (4.7-6.1); RDW 16.8 % (11.5-14.5); WBC 7.55 X1000 (4.8-10.8)
[2020-01-16 07:13] LABS: AGAP 13; ALB/GLOB RATIO 0.7; ALBUMIN 2.6 g/dL (3.5-5.0); ALKALINE PHOSPHATASE 91 U/L (32-122); BUN 16 mg/dL (8-22); CALCIUM 8.2 mg/dL (8.8-10.2); CHLORIDE 108 mmol/L (98-107); COSMO 280; ESTIMATED GFR > 60; GLUCOSE 59 mg/dL (70-104); GOT 17 U/L (10-34); GPT 13 U/L (10-44); MAGNESIUM 1.9 mg/dL (1.5-2.7); POTASSIUM 3.4 mmol/L (3.5-5.1); SODIUM 141 mmol/L (136-145); TCO2 20 mmol/L (25-35); TOTAL BILIRUBIN 0.27 mg/dL (0.20-1.00); TOTAL PROTEIN 6.2 g/dL (6.3-8.3)
[2020-01-16] MEDS: LANTUS INSULIN SUBQ SCH (08:10)
[2020-01-16] MEDS: SODIUM CHLORIDE 0.9% INJ SCH (09:56)
[2020-01-16] MEDS: PROTONIX IV SCH ×2 (09:56→22:37)
[2020-01-16] MEDS ORDERED: VANCOMYCIN 1,500 MG in NS 250 ML IV SCH (12:30)
--- NOTE | 2020-01-16 14:28 | GASTROENTEROLOGY CONSULTATION ---
DATE: 01/16/2020 REASON FOR CONSULT: Nausea and vomiting. HISTORY OF PRESENT ILLNESS: Mr. Wallace is a 54-year-old, male. He came in yesterday to the hospital with complaints of nausea and vomiting. He has denied noticing any blood in his vomit. He does mention that his esophagus hurts when he tries to take a bite and swallow it. The patient does have a history of DKA, respiratory failure, hepatitis C, amphetamine and methamphetamine abuse, dysphagia due to esophagitis. He was here in the hospital a month back and was in the ICU. He left against medical advice. This time, he was at his daughter's house and ambulance had to come and pick him up because he was having altered mental status and fever. The patient now complains that anything that he puts in the mouth makes him feel like he is nauseated and he wants to throw it up. The patient did have an EGD done on 01/10/[address] Calderon. He had esophagitis in the lower third of the esophagus and middle third esophagus, mucosal breaks involving 75% of the esophageal circumference. There was a long tapering stricture with inner diameter measuring 7 to 8 mm. The stricture was not traversable. Recommendation was that the patient would need an EGD in 6 to 8 weeks with dilation under fluoroscopy. PAST MEDICAL HISTORY: DKA with uncontrolled diabetes, encephalopathy, history of acute kidney injury, dysphagia, hepatitis C, pulmonary emboli. Last admission, he had left-sided body discoloration and cyanosis, severe protein calorie malnutrition, recurrent acute respiratory failure requiring intubation, and esophageal stricture. PAST SURGICAL HISTORY: His left second finger is partially amputated due to joint deterioration. The patient had an EGD with dilation. SOCIAL HISTORY: The patient is single. He smokes half a pack of cigarettes daily. Uses amphetamine on a regular basis. FAMILY HISTORY: Significant for COPD. ALLERGIES: No known drug allergies. HOME MEDICATIONS: Not reconciled. REVIEW OF SYSTEMS: As per HPI. Otherwise, 12 point review of system is negative. PHYSICAL EXAMINATION: Vital Signs: Temperature 97.5 degrees, pulse 99, respirations 17, blood pressure 182/85, oxygen saturation 100% on room air. The patient's weight is 124 pounds. BMI is 19.5 kg/m2. General: He is alert, oriented x3, answering questions appropriately, and in no acute distress. HEENT: Pale conjunctivae. No icterus. PERRL. Neck: Supple. Lungs: Wheezing heard in the anterior magallanes. Cardiovascular: Patient is tachycardic. Abdomen: Soft, nontender, nondistended. Active bowel sounds heard in all 4 quadrants. Extremities: No clubbing, no cyanosis. Generalized edema in the lower extremities and he has edema on his hands bilaterally. Neurologic: Alert and oriented x3. Nonfocal. Cranial nerves 2-12 grossly intact. LABS: WBCs are 7.55, RBCs 5.06, hemoglobin 11.9, hematocrit is 38.0, platelet count is 347,000. Sodium 141, potassium 3.4, chloride 108, carbon dioxide 20, anion gap 13, BUN 16, creatinine is 1.0, glucose 59, calcium 8.2, magnesium is 1.9. Total bilirubin 0.27, AST 17, ALT 13, alkaline phosphatase 91, albumin is 2.6. Urinalysis yesterday showed protein of 50, glucose of greater than 1000, ketones of 100, and trace of blood. Toxicology report has shown presumptive positive for amphetamines and presumptive positive for methamphetamines, and a small amount of acetone level. IMAGING: Patient's head CT has shown no evidence of acute intracranial pathology. Chest x-ray showed no evidence of acute pathology by plain radiology. Chest x-ray today showed negative exam. IMPRESSION AND PLAN: Diabetes Encephalopathy Meth abuse Hepatitis C Esophagitis H/o esophageal strictures PLAN: Mr. Wallace is a 54-year-old, male with a history of diabetes and hepatitis C. GI has been consulted for his nausea and vomiting. We plan to do an EGD tomorrow to find out the cause of his nausea and vomiting. The patient had an EGD recently done where he had esophageal strictures. The patient is currently receiving antibiotics, Zosyn and vancomycin. He is on PPIs twice a day. For his nausea and vomiting, he is on Zofran. We have discussed the risks, benefits, and alternatives of the procedure to the patient. Further plan of care will be based on the EGD findings. This plan was discussed with Dr. Santana. Thank you for your consult. Please call us for any further questions or concerns. Dictated by COURTNEY Stafford for Donaldo Santana MD cc: Donaldo Santana MD I have seen and examined the patient myself and I agree with the above plan of care. Please call us with any further questions or concerns. NED
--- NOTE | 2020-01-16 14:44 | PROGRESS NOTE ---
DATE: 01/16/2020 SUBJECTIVE: The patient has no major complaints. OBJECTIVE: Blood pressure 182/85, heart rate of 99, respiratory rate of 17, temperature 97.5 degrees. Cardiovascular: Regular rate and rhythm. Pulmonary: Bilateral breath sounds clear to auscultation. GI: Soft, nontender, nondistended. Bowel sounds were positive. White count is 7.5, hemoglobin and hematocrit 11 and 38, platelets 347,000. Potassium 3.4. Sugar of 59 but he has been kind of hanging around. He has been actually fairly low. I am going to tone down his Lantus, especially since he is not eating very much. ASSESSMENT AND PLAN: 1. Diabetic ketoacidosis, which was mild, has resolved. We will continue to monitor. 2. Intractable nausea and vomiting. He has a history of dysphagia. He was here, I think, back in November. I had seen him before. He received an esophagogastroduodenoscopy and I think he had a dilation. That was in November. I think he has hepatitis C too. He has active hepatitis C but in any case, plan for repeat esophagogastroduodenoscopy tomorrow and we will continue to follow. Continue proton pump inhibitor. 3. Hepatitis C. Continue to monitor his liver enzymes. 4. History of pulmonary embolism. He is supposed to be on anticoagulation, presumably with Coumadin, but I do not think he is on anything at the moment, but we do not have a list of his medicines. We will continue deep venous thrombosis prophylaxis and follow. cc: Felix Parrish MD
--- NOTE | 2020-01-16 15:20 | ECHO REPORT ---
ORDER DATE: 01/15/2020 INTERPRETING PHYSICIAN: Dr. Benoit Davis. ECHOCARDIOGRAPHIC MEASUREMENTS: 1. Interventricular septum: 1.4 cm. 2. Left ventricular posterior wall: 1.4 cm. 3. Diastolic diameter: 2.8 cm. 4. Left atrium: 3.6 cm. 5. Aorta: 3.3 cm. SUMMARY OF THE 2-DIMENSIONAL IMAGIN. Aortic valve leaflets were trileaflet. 2. Pulmonic valve was normal. 3. Tricuspid valve was normal. 4. Mitral valve was normal. 5. There is mild pulmonary regurgitation. 6. Normal left ventricular cavity size. Concentric left ventricular hypertrophy. Estimated ejection fraction of 70 to 75 percent. There is hyperdynamic LV systolic function. 7. There is grade 1 diastolic dysfunction. 8. There is mild mitral regurgitation. 9. Mild tricuspid regurgitation. Peak velocity across the tricuspid valve was 2.5 m/sec. 10. Pulmonary artery systolic pressure of 35 mmHg. 11. Peak velocity across the aortic valve less than 2 m/sec. There is no aortic stenosis or regurgitation. 12. There is no pericardial effusion or obvious intracardiac mass or thrombus seen. cc: MD Amy Keyes CRNP
[2020-01-16] MEDS: ZOFRAN IV PRN (18:31)
[2020-01-16] MEDS: ATIVAN IV PRN ×2 (18:31→22:38)
[2020-01-16] MEDS: MORPHINE IV PRN ×2 (18:31→22:38)
[2020-01-17] MEDS: DUONEB (A & A) INH SCH ×5 (03:10→23:17)
[2020-01-17] MEDS: LOVENOX SUBQ SCH (05:10)
[2020-01-17 05:23] LABS: BASO# 0.03 X1000 (0.0-0.2); BASO% 0.3 % (0.0-0.8); EOS# 0.08 X1000 (0.0-0.7); EOS% 0.7 % (0.0-10.0); HEMATOCRIT 33.2 % (42.0-52.0); HEMOGLOBIN 10.2 g/dL (14.0-18.0); LYMPH# 0.87 X1000 (1.2-3.4); LYMPH% 8.1 % (20.5-51.1); MCH 23.5 PG (27-31); MCHC 30.7 g/dL (33-37); MCV 76.5 FL (81-99); MONO# 0.36 X1000 (0.11-0.59); MONO% 3.3 % (1.7-9.3); MPV 9.2 FL (7.4-10.4); NEUT# 9.42 X1000 (1.4-6.5); NEUT% 87.6 % (42.2-75.2); PLT 253 X1000 (130-400); RBC 4.34 XMIL (4.7-6.1); RDW 16.9 % (11.5-14.5); WBC 10.76 X1000 (4.8-10.8)
[2020-01-17 05:59] LABS: AGAP 12; ALBUMIN 2.7 g/dL (3.5-5.0); ALKALINE PHOSPHATASE 69 U/L (32-122); BUN 13 mg/dL (8-22); CALCIUM 8.3 mg/dL (8.8-10.2); CHLORIDE 107 mmol/L (98-107); COSMO 288; CREATININE 0.8 mg/dL (0.7-1.2); ESTIMATED GFR > 60; GLUCOSE 152 mg/dL (70-104); GOT 11 U/L (10-34); GPT 11 U/L (10-44); MAGNESIUM 1.7 mg/dL (1.5-2.7); POTASSIUM 3.4 mmol/L (3.5-5.1); SODIUM 143 mmol/L (136-145); TCO2 24 mmol/L (25-35); TOTAL BILIRUBIN 0.19 mg/dL (0.20-1.00); TOTAL PROTEIN 5.3 g/dL (6.3-8.3)
[2020-01-17 06:58] LABS: LYMPHS 7 % (21-51); MONO 3 % (1-9); SEGS 90 % (42-75)
[2020-01-17] MEDS: PROTONIX IV SCH ×2 (10:00→20:54)
[2020-01-17] MEDS: LANTUS INSULIN SUBQ SCH (10:00)
[2020-01-17] MEDS: ATIVAN IV PRN ×2 (10:12→16:30)
[2020-01-17] MEDS: MORPHINE IV PRN ×2 (10:13→16:30)
[2020-01-17] MEDS: HUMULIN R SUBQ SCH ×5 (12:00→20:52)
[2020-01-17 13:06] LABS: IRON SATURATION 4 %; TIBC 212 ug/dL
[2020-01-17 13:22] LABS: FERRITIN 109 ng/mL (30-400)
[2020-01-17 13:28] LABS: TOTAL IRON 9 ug/dL (53-167); UNBOUND IRON 203 ug/dL (112-346)
--- NOTE | 2020-01-17 14:13 | GASTROENTEROLOGY PROGRESS NOTE ---
DATE: 01/17/2020 SUBJECTIVE: Mr. Wallace is a 54-year-old male resting in bed. The patient is still complaining of swallowing problems with pain in the esophagus. The plan was to do an EGD today but had to cancel it as patient ate and drank when he had to be NPO. OBJECTIVE: Vital Signs: Temperature 97.7 degrees, pulse 90, respirations 21, blood pressure 140/82, oxygen saturation 98% on room air. The patient's weight is 119 pounds. BMI is 18.7 kg/m2. General: He is alert, oriented x3, and in no acute distress. HEENT: Pale conjunctivae. No icterus. PERRL. Neck: Supple. Lungs: Wheezing heard in the anterior magallanes. Cardiovascular: Regular rate and rhythm. Abdomen: Soft, nontender, nondistended. Active bowel sounds heard in all 4 quadrants. Extremities: No clubbing, no cyanosis. Generalized edema in the lower extremities and in the upper extremities bilaterally. Neurologic: Alert and oriented x3. LABS: WBCs 10.76, RBCs 4.34, hemoglobin is 10.2, hematocrit is 33.2, platelet count is 253,000. Sodium 143, potassium 3.4, chloride is 107, carbon dioxide is 24, anion gap is 12, BUN is 13, creatinine is 0.8, glucose is 152, calcium is 8.3, magnesium is 1.7, total bilirubin is 0.19, AST is 11, ALT is 11, alkaline phosphatase is 69, albumin is 2.7. IMPRESSION AND PLAN: - Dysphagia - Esophageal stricture - Esophagitis - N/V - Encephalopathy - Substance abuse - Hepatitis C PLAN: Mr. Wallace is a 54-year-old male with a history of diabetes and hepatitis C. GI has been following him for his nausea and vomiting. An EGD was done on 01/09 and the patient had esophageal strictures. Plan was to do an EGD today but had to cancel it. The patient ate and drank liquids when he was supposed to be NPO. Patient is still complaining of nausea and vomiting and complaining of his esophagus. He is currently on antiemetics, Zofran 4 mg every 4 hours. The patient is on PPIs twice a day. The patient might need a surgery consult. We will continue to monitor the patient and follow the plan of care per PCP. This plan was discussed with Dr. Calderon. Please call us for any further questions or concerns. Dictated by COURTNEY Stafford for Alen Calderon MD Physician Attestation I have seen and examined the patient. I have discussed and reviewed the note by Alma VALDEZ and agree with findings and plan as documented. [facility]
[2020-01-17] MEDS: ZOFRAN IV PRN (16:30)
--- NOTE | 2020-01-17 16:36 | PROGRESS NOTE ---
DATE: 01/17/2020 SUBJECTIVE: Patient has no major complaints. OBJECTIVE: Vital Signs: Blood pressure is 140/82, heart rate of 90, respiratory rate of 21, temperature 97.7 degrees, 98% on room air. Cardiovascular: Regular rate and rhythm. Pulmonary: Bilateral breath sounds clear to auscultation. Gastrointestinal: Soft, nontender, nondistended. Bowel sounds are positive. LABORATORY DATA: White count 10, hemoglobin and hematocrit 10 and 33, platelets 253,000. Potassium 3.4, glucose 213. Vitamin B12 1023. PROBLEM LIST: 1. Dysphagia with intractable nausea and vomiting. He has severe esophagitis with stricture. Esophagogastroduodenoscopy was planned for today then the patient took in orals, which he said he just forgot that he was supposed to be NPO. In any case, Dr. Calderon feels with the degree of esophagitis will not be able to dilate the stricture safely without increasing risk of perforation. He thinks we need to do an alternative form of feeding, either I guess Dobbhoff or possibly a jejunostomy tube. I have consulted Dr. Treviño to evaluate. 2. Diabetic ketoacidosis. Again, his blood sugars now are under control. He is on Lantus. Seems to be doing okay. 3. History of hepatitis. Aware of diagnosis. We are going to continue to follow. DISPOSITION: Pending clinical status. cc: Felix Parrish MD
--- NOTE | 2020-01-17 19:30 | GENERAL SURGERY CONSULTATION ---
DATE: 01/17/2020 REASON FOR CONSULTATION: Distal esophageal stricture, refractory nausea and vomiting and severe esophagitis. CHIEF COMPLAINT: Nausea and vomiting. HISTORY OF PRESENT ILLNESS: This 54-year-old gentleman has hepatitis C, medical noncompliance, diabetes, who has had persistent refractory nausea, vomiting. He also has history of methamphetamine abuse and DKA. He came in in DKA. He has had refractory nausea, vomiting. He has been scoped by Dr. Jain and Dr. Calderon. He was found to have a inflamed ulcerated distal esophageal stricture, but pathology did not show malignancy. He has been intolerant to p.o. He continues to vomit. Apparently, he has been worked up for gastroparesis in the past and this showed normal gastric emptying. He had a barium swallow on the that showed granular appearing esophageal mucosa, poor dilation of long segment in mid distal esophagus and thickened gastric folds in the greater curve. I was consulted to evaluate for enteral access. He has been noncompliant. Despite NPO orders, he continues to drink. In fact, he ate today, and his EGD had to be canceled. MEDICAL HISTORY: As noted in HPI. SURGICAL HISTORY: He has had no abdominal surgery. SOCIAL HISTORY: History of multiple drug abuse. He smokes. FAMILY HISTORY: Reviewed and noncontributory. REVIEW OF SYSTEMS: A 10 point review of systems negative other than what is mentioned HPI. PHYSICAL EXAMINATION: He is afebrile, pulse 90, blood pressure 140/82. Oxygen saturation is 98%. General: He is alert, in no acute distress, but there was is emesis on the floor, in a garbage can and in an emesis basin. HEENT: There are no cervical masses. No scleral icterus. He has poor dentition and temporal wasting. Cardiovascular: Normal rate. Pulmonary: No increased work of breathing. Abdomen: Is soft, nontender, nondistended. I do not see any scars. Integument: Warm dry with no jaundice. Psychiatric: Appropriate affect. Neurologic: No gross deficits. Extremities: Peripheral vascular no lower extremity edema. White count 10 hematocrit 33. His creatinine is 0.8. His hemoglobin A1c is 10.1. Bilirubin is normal. AST, ALT, and alkaline phosphatase are normal. Lipase was normal a couple days ago. He is positive for amphetamines on the . He has not had any abdominal imaging since here. ASSESSMENT AND PLAN: This gentleman has multiple issues, including ongoing methamphetamine abuse. He has esophageal stricture related most likely to reflux. Biopsies showed benign findings. Given his entire clinical picture, a jejunostomy tube would be wrought with complications. These are problematic even in the most diligent of patients. I worry of dislodgement of the tube, not to mention I am not sure that we can arrange outpatient enteral feeds. I suspect that he may ultimately require distal esophagectomy, which would be very problematic and this would need to be done in an academic center. In the meantime, TPN will be complicated by his poorly-controlled diabetes. Dobbhoff tube would be reasonable as well, and this would be somewhat of a test run to see his tolerance of enteral feeding. We will follow along but very apprehensive to pursue surgical feeding tube placement. cc: Darlin Treviño MD
[2020-01-18 05:39] LABS: BASO# 0.02 X1000 (0.0-0.2); BASO% 0.1 % (0.0-0.8); HEMATOCRIT 36.8 % (42.0-52.0); HEMOGLOBIN 11.3 g/dL (14.0-18.0); IMM GRAN# 0.04 X1000 (0.0-0.04); IMM GRAN% 0.2 % (0.0-0.5); LYMPH# 0.92 X1000 (1.2-3.4); LYMPH% 4.5 % (20.5-51.1); MCH 23.7 PG (27-31); MCHC 30.7 g/dL (33-37); MCV 77.1 FL (81-99); MONO# 0.33 X1000 (0.11-0.59); MONO% 1.6 % (1.7-9.3); MPV 9.5 FL (7.4-10.4); NEUT# 19.03 X1000 (1.4-6.5); NEUT% 93.6 % (42.2-75.2); PLT 269 X1000 (130-400); RBC 4.77 XMIL (4.7-6.1); RDW 17.6 % (11.5-14.5); WBC 20.34 X1000 (4.8-10.8)
[2020-01-18] MEDS: DUONEB (A & A) INH SCH ×2 (05:40→09:56)
[2020-01-18 06:05] LABS: AGAP 25; ALB/GLOB RATIO 0.9; ALBUMIN 2.8 g/dL (3.5-5.0); ALKALINE PHOSPHATASE 89 U/L (32-122); BUN 16 mg/dL (8-22); CALCIUM 8.9 mg/dL (8.8-10.2); CHLORIDE 102 mmol/L (98-107); COSMO 297; CREATININE 1.2 mg/dL (0.7-1.2); ESTIMATED GFR > 60; GLUCOSE 320 mg/dL (70-104); GOT 10 U/L (10-34); GPT 10 U/L (10-44); MAGNESIUM 1.7 mg/dL (1.5-2.7); POTASSIUM 4.3 mmol/L (3.5-5.1); SODIUM 142 mmol/L (136-145); TCO2 15 mmol/L (25-35); TOTAL BILIRUBIN 0.33 mg/dL (0.20-1.00); TOTAL PROTEIN 5.8 g/dL (6.3-8.3)
[2020-01-18] MEDS: LOVENOX SUBQ SCH (06:27)
[2020-01-18 07:09] LABS: BANDS 2 % (0-1); LYMPHS 8 % (21-51); SEGS 90 % (42-75)
[2020-01-18] MEDS: ZOFRAN IV PRN ×2 (08:45→18:39)
[2020-01-18] MEDS: ATIVAN IV PRN ×4 (08:45→23:59)
[2020-01-18] MEDS: PROTONIX IV SCH ×2 (08:46→22:38)
[2020-01-18] MEDS: MORPHINE IV PRN ×3 (08:46→23:59)
[2020-01-18] MEDS: LANTUS INSULIN SUBQ SCH (08:48)
[2020-01-18] MEDS: HUMULIN R SUBQ SCH ×4 (08:48→22:42)
[2020-01-18] MEDS ORDERED: DUONEB (A & A) INH PRN (10:00)
--- NOTE | 2020-01-18 10:19 | Extremity Venous Study ---
PROCEDURE NAME: Venous U/S Bilateral Legs - 01/16/2020 REQUESTING PROVIDER: Denzel. FASHION SHOW DIRECTOR: Daniel. INDICATIONS: 1. PE. 2. Swelling. PREVIOUS COMPARISON: From 12/03/2019. EQUIPMENT: [employer] E9 ultrasound system with a 9 L-D transducer. FINDINGS: Images of the bilateral lower extremity venous systems were obtained in both sagittal and transverse planes. Doppler was used to evaluate veins for spontaneity, phasicity, respiratory excursion, and digital augmentation. RESULTS: Soft tissue swelling noted, but no obvious superficial or deep venous thrombosis noted to bilateral lower extremities. INTERPRETATION: Essentially normal bilateral lower extremity venous study. There is some soft tissue swelling noted. cc: MD Amy Mace CRNP
--- NOTE | 2020-01-18 12:22 | GASTROENTEROLOGY PROGRESS NOTE ---
DATE: 01/18/2020 SUBJECTIVE: Mr. Wallace is a 54-year-old male. He was sleeping, agitated, and did not want to talk much but complained of nausea and vomiting. OBJECTIVE: Vital Signs: Temperature 97.6 degrees, pulse 114, respirations 20, blood pressure 145/66, oxygen saturation 96% on room air. The patient's weight is 116 pounds. BMI is 18.2 kg/m2. General: He is alert and oriented x3. Agitated. Refusing to talk. HEENT: Pale conjunctivae. No icterus. PERRL. Neck: Supple. Lungs: Wheezing heard in the anterior magallanes. Cardiovascular: The patient is tachycardic. Abdomen: Soft, nontender, and nondistended. Active bowel sounds heard in all 4 quadrants. Extremities: No clubbing. No cyanosis. Generalized edema in the lower extremities and in the upper extremities bilaterally. Neurological: Alert and oriented x3. LABORATORY: WBCs are 20.34, RBCs 4.77, hemoglobin is 11.3, hematocrit is 36.8, and platelet count is 269,000. Sodium 142, potassium 4.3, chloride 102, carbon dioxide 15, anion gap is 25, BUN is 16, creatinine 1.2, calcium 8.9, and albumin is 2.8. IMPRESSION AND PLAN: - Dysphagia - Esophageal stricture - Esophagitis - N/V - Encephalopathy - Meth abuse - Hepatitis C PLAN: Mr. Wallace is a 54-year-old male with a history of diabetes and hepatitis C. The patient is very noncompliant. He is complaining of nausea and vomiting. We have ordered placement of NG tube and dietitian consult. The patient is currently on antiemetics Zofran for his nausea and vomiting. He is also on PPI twice a day. For his diabetes, he is on Lantus insulin 10 units subcutaneous daily. We will continue to monitor the patient, and follow the plan of care per PCP. This plan was discussed with Dr. Calderon. Please call us for any further questions or concerns. Dictated by COURTNEY Stafford for Alen Calderon MD Physician Attestation I have seen and examined the patient. I have discussed and reviewed the note by Alma VALDEZ and agree with findings and plan as documented. Recommend evaluation for surgical J-tube vs DHT placement for enteral feeding. Patient will need 6-8 of PPI therapy before considering esophageal dilation given severe inflammation. MTDD
--- NOTE | 2020-01-18 15:05 | Diag Imaging Result Doc PS360 ---
EXAM: CHEST-PORTABLE INDICATION: NGT PLACEMENT VERIFICATION TECHNIQUE: One view COMPARISON: 01/16/2020 FINDINGS: There is a newly placed NG tube. The tip projects well below the diaphragm and is assumed to be in the lumen of the stomach in expected position. The lungs are overexposed due to focus on the NG tube. Although it could be artifactual, there is increased opacity throughout the right lung. Developing infiltrate is possible. Cardiac silhouette is stable. IMPRESSION: 1.Interval placement of NG tube in the expected position as described. 2.Vague increased opacity throughout the right lung as compared to previous study. This could be an artifact as the lungs are overexposed due to focus on the NG tube. Follow-up chest radiograph is suggested. Electronically signed by Sedrick Neil 01/18/2020 3:03 PM
--- NOTE | 2020-01-18 17:28 | PROGRESS NOTE ---
DATE: 01/18/2020 SUBJECTIVE: Patient was pretty somnolent, not sure if he had recently had some medications, but he has an NG tube in place now. OBJECTIVE: Blood pressure 174/76, heart rate of 123, respiratory rate of 22, temperature was afebrile 98.5.Cardiovascular: Regular rate and rhythm. Pulmonary: Bilateral breath sounds clear to auscultation. GI: Soft, nontender, nondistended. Bowel sounds were positive. LABORATORY DATA: White count is 20 today, hemoglobin 11 and hematocrit 36, platelets 269,000. Basic was okay. Sugar is up to 320. Bicarb has come down to about 15 with a gap of 25. PROBLEM LIST: 1. Severe dysphagia. It looks like it is related to esophagitis. We had discussions with surgery about possible tube placements, J-tube placements, but because of concern over compliance and outpatient resources, I guess we are going to do a feeding tube instead. Hopefully, this will be the short term until the inflammation in his esophagus dies down and he has an NG-tube in place. 2. Diabetic ketoacidosis. I am concerned he may be going back into DKA based on his numbers today. We will check his values today and see how he goes. We may have to resume an insulin drip. We are starting tube feeds on him as well. 3. Leukocytosis. It is not really clear what that is related to, but he is certainly at risk for aspiration type pneumonia. I think we may resume Zosyn until we get some more information. cc: Felix Parrish MD
[2020-01-18] MEDS: ZOSYN 3.375 GM in NS 50 ML IV SCH ×2 (18:39→22:50)
[2020-01-18 21:16] LABS: AGAP 11; BUN 20 mg/dL (8-22); CALCIUM 8.9 mg/dL (8.8-10.2); CHLORIDE 110 mmol/L (98-107); COSMO 300; CREATININE 1.1 mg/dL (0.7-1.2); ESTIMATED GFR > 60; GLUCOSE 225 mg/dL (70-104); POTASSIUM 3.9 mmol/L (3.5-5.1); SODIUM 146 mmol/L (136-145); TCO2 25 mmol/L (25-35)
[2020-01-19] MEDS: ATIVAN IV PRN ×4 (04:11→20:52)
[2020-01-19] MEDS: MORPHINE IV PRN ×2 (04:12→17:12)
[2020-01-19] MEDS: ZOSYN 3.375 GM in NS 50 ML IV SCH ×3 (04:30→17:03)
[2020-01-19 05:30] LABS: BASO# 0.02 X1000 (0.0-0.2); BASO% 0.2 % (0.0-0.8); EOS# 0.01 X1000 (0.0-0.7); EOS% 0.1 % (0.0-10.0); HEMOGLOBIN 10.1 g/dL (14.0-18.0); MCH 23.4 PG (27-31); MCHC 30.6 g/dL (33-37); MCV 76.4 FL (81-99); MONO# 0.21 X1000 (0.11-0.59); MONO% 2.4 % (1.7-9.3); MPV 9.4 FL (7.4-10.4); NEUT# 7.88 X1000 (1.4-6.5); NEUT% 88.3 % (42.2-75.2); PLT 275 X1000 (130-400); RBC 4.32 XMIL (4.7-6.1); RDW 17.6 % (11.5-14.5); WBC 8.92 X1000 (4.8-10.8)
[2020-01-19 05:40] LABS: AGAP 11; ALB/GLOB RATIO 0.7; ALBUMIN 2.3 g/dL (3.5-5.0); ALKALINE PHOSPHATASE 82 U/L (32-122); BUN 21 mg/dL (8-22); CALCIUM 8.9 mg/dL (8.8-10.2); CHLORIDE 110 mmol/L (98-107); COSMO 299; CREATININE 1.2 mg/dL (0.7-1.2); ESTIMATED GFR > 60; GLUCOSE 194 mg/dL (70-104); GOT 7 U/L (10-34); GPT 7 U/L (10-44); MAGNESIUM 1.9 mg/dL (1.5-2.7); POTASSIUM 3.8 mmol/L (3.5-5.1); SODIUM 146 mmol/L (136-145); TCO2 25 mmol/L (25-35); TOTAL BILIRUBIN 0.33 mg/dL (0.20-1.00); TOTAL PROTEIN 5.8 g/dL (6.3-8.3)
[2020-01-19 05:41] LABS: PHOSPHORUS 2.3 mg/dL (2.7-4.5); PREALBUMIN 7.7 mg/dL (20-40)
[2020-01-19] MEDS: LOVENOX SUBQ SCH (06:15)
[2020-01-19] MEDS: HUMULIN R SUBQ SCH ×4 (06:34→20:55)
--- NOTE | 2020-01-19 08:51 | Diag Imaging Result Doc PS360 ---
EXAM: CHEST-2 VIEWS 01/19/2020 HISTORY: hypoxia TECHNIQUE: PA and lateral chest COMMENT: There is ill-defined opacity throughout the right lung and in the upper and lower portions of the left lung. This is worse than on 01/16/2020. IMPRESSION: Pulmonary edema and/or pneumonia. Electronically signed by Anil Gilliam 01/19/2020 8:49 AM
[2020-01-19 09:26] LABS: BASO# 0.03 X1000 (0.0-0.2); BASO% 0.4 % (0.0-0.8); EOS# 0.02 X1000 (0.0-0.7); EOS% 0.2 % (0.0-10.0); HEMOGLOBIN 11.8 g/dL (14.0-18.0); IMM GRAN# 0.02 X1000 (0.0-0.04); IMM GRAN% 0.2 % (0.0-0.5); LYMPH# 0.93 X1000 (1.2-3.4); LYMPH% 11.1 % (20.5-51.1); MCH 23.6 PG (27-31); MCHC 31.1 g/dL (33-37); MCV 76.2 FL (81-99); MONO# 0.19 X1000 (0.11-0.59); MONO% 2.3 % (1.7-9.3); MPV 9.2 FL (7.4-10.4); NEUT# 7.21 X1000 (1.4-6.5); NEUT% 85.8 % (42.2-75.2); PLT 275 X1000 (130-400); RBC 4.99 XMIL (4.7-6.1); RDW 18.2 % (11.5-14.5)
[2020-01-19 09:32] LABS: INR 1.07
[2020-01-19 09:33] LABS: PTT 35.9 Seconds (22.3-41.8)
[2020-01-19 09:38] LABS: LYMPHS 22 % (21-51); MONO 6 % (1-9); SEGS 72 % (42-75)
[2020-01-19 09:41] LABS: AGAP 9; ALB/GLOB RATIO 1.2; ALBUMIN 3.2 g/dL (3.5-5.0); ALKALINE PHOSPHATASE 90 U/L (32-122); BUN 22 mg/dL (8-22); CALCIUM 8.7 mg/dL (8.8-10.2); CHLORIDE 106 mmol/L (98-107); CK PROFILE 17 U/L (24-204); COSMO 292; CREATININE 1.2 mg/dL (0.7-1.2); ESTIMATED GFR > 60; GLUCOSE 194 mg/dL (70-104); GOT 8 U/L (10-34); GPT 9 U/L (10-44); POTASSIUM 3.7 mmol/L (3.5-5.1); SODIUM 142 mmol/L (136-145); TCO2 27 mmol/L (25-35); TOTAL BILIRUBIN 0.36 mg/dL (0.20-1.00); TOTAL PROTEIN 5.8 g/dL (6.3-8.3)
[2020-01-19] MEDS: MIRALAX PO SCH (10:13)
[2020-01-19] MEDS: DULCOLAX PR SCH ×2 (10:16→20:57)
[2020-01-19] MEDS: PROTONIX IV SCH ×2 (10:16→20:50)
[2020-01-19] MEDS: SODIUM CHLORIDE 0.9% INJ SCH ×2 (10:17→20:50)
[2020-01-19] MEDS ORDERED: HALDOL IV ONE (11:09)
[2020-01-19] MEDS: LANTUS INSULIN SUBQ SCH (11:31)
--- NOTE | 2020-01-19 14:47 | GASTROENTEROLOGY PROGRESS NOTE ---
DATE: 01/19/2020 PATIENT PROFILE: A 54-year-old male. SUBJECTIVE: Mr. Wallace is a 54-year-old male resting in bed. The patient seems to be confused. He was able to tell his name, but not able to tell his birthday or where he was. The patient had an NG tube placed yesterday and patient dislodged it last night. OBJECTIVE: Vitals: Temperature 97.8, pulse is 61, respirations 19, blood pressure 125/48, oxygen saturation 97% on room air. Patient's weight is 115 pounds, BMI is 18.1 kg/m2. General: He is confused. HEENT: Pale conjunctivae, no icterus. PERRL. Neck: Supple. Lungs: Clear to auscultation. Cardiovascular: Regular rate and rhythm. Abdomen: Soft, nontender, nondistended. Active bowel sounds heard in all four quadrants. Extremities: No clubbing. No cyanosis. Generalized edema in the lower extremities and in the upper extremities bilaterally. Neurologic: He is alert, oriented x1. LABORATORY DATA: WBCs 8.40, RBCs 4.99, hemoglobin is 11.8, hematocrit is 38.0, platelet count is 275. PT is 14.0, INR is 1.07. Sodium is 142, potassium is 3.7, chloride is 106, carbon dioxide 27, anion gap 9. BUN 22, creatinine is 1.2, glucose is 194, calcium is 8.7. Total bilirubin is 0.36, AST 8, ALT 9, alkaline phosphatase 90, plasma lactate is 0.9, albumin is 3.2. IMAGING: Chest x-ray today showed pulmonary edema and/or pneumonia. IMPRESSION: AND PLAN: 1. Nausea and vomiting. 2. Diabetes. 3. Hepatitis C. 4. History of esophageal stricture, 5. Esophagitis. PLAN: Mr. Wallace is a 54-year-old male, who is currently in the hospital with nausea, vomiting. The patient's NG tube has been dislodged. Started the patient on Clinimix for his nutrition. He is on a bowel rest, MiraLAX 17 grams daily and Dulcolax 10 mg p.o. twice a day. We will continue patient with PPIs twice a day. The patient is receiving antibiotic, Zosyn. We will continue to monitor the patient and follow the plan of care per PCP. This plan is discussed with Dr. Santana. Please call us for any further questions or concerns. Dictated by COURTNEY Stafford for Donaldo Santana MD cc: Donaldo Santana MD I have seen and examined the patient myself and I agree with the above plan of care. Please call us with any further questions or concerns. MTDD
[2020-01-19] MEDS ORDERED: SODIUM PHOSPHATE 40 MEQ in NS 250 ML IV ONE (15:53)
--- NOTE | 2020-01-19 16:12 | PROGRESS NOTE ---
DATE: 01/19/2020 SUBJECTIVE: Patient has no major complaints. OBJECTIVE: Blood pressure is 125/48, heart rate 61, respiratory rate 19, temperature 97.8 degrees, 97% on room air.Cardiovascular: Regular rate and rhythm. Pulmonary: Bilateral breath sounds, clear to auscultation. GI: Soft, nontender, nondistended. Bowel sounds are positive. LABORATORY DATA: White count is 8, hemoglobin and hematocrit 11 and 38, platelets 275,000. Basic was normal. ASSESSMENT AND PLAN: 1. His chest x-ray does show some interstitial infiltrates which may be pneumonia, most likely aspiration type. He is not really tolerating anything else. He does not have fever. I do not think this is a viral process. In any case, we will replace his nasogastric tube and plan for tube feeds because he cannot tolerate anything orally. He was audibly gurgling. He has been placed on Clinimix and we will continue to follow that. It does not look like he is in diabetic ketoacidosis. 2. Uncontrolled diabetes. Again, he is not in diabetic ketoacidosis. We will continue insulin and follow. 3. Leukocytosis, possible aspiration type pneumonia. He is on Zosyn. DISPOSITION: We will have to set up tube feeds at home and get some associated help there. cc: Felix Parrish MD
[2020-01-19] MEDS: CLINIMIX E 4.25%-5% SOLUTION 1,000 ML IV SCH (16:46)
--- NOTE | 2020-01-19 17:28 | Diag Imaging Result Doc PS360 ---
EXAM: CHEST-1 VIEW 01/19/2020 HISTORY: confirm NG tube placement TECHNIQUE: AP portable semiupright at 1701 COMMENT: There is a feeding tube with its tip in the fundus of the stomach. There are patchy opacities present in both lungs similar in appearance to the previous studies of 01/18/2020 and 01/19/2020 at 0841. IMPRESSION: Pneumonia. The possibility of aspiration pneumonia cannot be excluded. Electronically signed by Anil Gilliam 01/19/2020 5:26 PM
[2020-01-19 19:06] LABS: BILIRUBIN URINE NEGATIVE (NEGATIVE); BLOOD URINE NEGATIVE (NEGATIVE); COLOR YELLOW; GLUCOSE URINE 200 mg/dL (NEGATIVE); KETONE URINE TRACE mg/dL (NEGATIVE); LEUKOCYTES URINE NEGATIVE (NEGATIVE); NITRITE URINE NEGATIVE (NEGATIVE); PROTEIN URINE 100 mg/dL (NEGATIVE); TURBIDITY URINE HAZY (CLEAR); URINE SOURCE CLEAN CATCH; UROBILINOGEN URINE NORMAL (NORMAL)
[2020-01-19 19:10] LABS: UR EPITHELIAL CELLS <10 /HPF (<10); URINE BACTERIA NEGATIVE /HPF; URINE RBC <10 /HPF (<10); URINE WBC <10 /HPF (<10)
--- NOTE | 2020-01-19 19:12 | Diag Imaging Result Doc PS360 ---
EXAM: CHEST-PORTABLE 01/19/2020 HISTORY: ng tube placement verification TECHNIQUE: AP portable at 1829 COMMENT: There are patchy alveolar opacities bilaterally particularly in the left upper lobe. There is a feeding tube in the distal stomach. The lungs are better expanded. Otherwise are has been no significant change since 01/19/2020 at 1701. IMPRESSION: Bilateral bronchopneumonia plus minus pulmonary edema. Electronically signed by Anil Gilliam 01/19/2020 7:10 PM
[2020-01-19] MEDS ORDERED: HALDOL IM ONE (21:25)
[2020-01-20] MEDS ORDERED: ATIVAN IV PRN (01:00)
[2020-01-20] MEDS: ZOSYN 3.375 GM in NS 50 ML IV SCH ×4 (01:43→17:45)
[2020-01-20 05:26] LABS: BASO# 0.04 X1000 (0.0-0.2); BASO% 0.8 % (0.0-0.8); EOS# 0.09 X1000 (0.0-0.7); EOS% 1.9 % (0.0-10.0); HEMOGLOBIN 9.4 g/dL (14.0-18.0); LYMPH# 0.94 X1000 (1.2-3.4); LYMPH% 19.9 % (20.5-51.1); MCH 23.2 PG (27-31); MCHC 30.3 g/dL (33-37); MCV 76.5 FL (81-99); MONO# 0.12 X1000 (0.11-0.59); MONO% 2.5 % (1.7-9.3); MPV 9.6 FL (7.4-10.4); NEUT# 3.54 X1000 (1.4-6.5); NEUT% 74.9 % (42.2-75.2); PLT 238 X1000 (130-400); RBC 4.05 XMIL (4.7-6.1); RDW 17.7 % (11.5-14.5); WBC 4.73 X1000 (4.8-10.8)
[2020-01-20 05:27] LABS: AGAP 12; ALB/GLOB RATIO 0.6; ALBUMIN 2.1 g/dL (3.5-5.0); ALKALINE PHOSPHATASE 71 U/L (32-122); BUN 20 mg/dL (8-22); CALCIUM 8.3 mg/dL (8.8-10.2); CHLORIDE 103 mmol/L (98-107); COSMO 286; CREATININE 0.9 mg/dL (0.7-1.2); ESTIMATED GFR > 60; GLUCOSE 205 mg/dL (70-104); GOT 10 U/L (10-34); GPT 7 U/L (10-44); MAGNESIUM 1.7 mg/dL (1.5-2.7); PHOSPHORUS 3.7 mg/dL (2.7-4.5); POTASSIUM 3.3 mmol/L (3.5-5.1); SODIUM 139 mmol/L (136-145); TCO2 24 mmol/L (25-35); TOTAL BILIRUBIN 0.26 mg/dL (0.20-1.00); TOTAL PROTEIN 5.4 g/dL (6.3-8.3)
[2020-01-20] MEDS: LOVENOX SUBQ SCH (06:49)
[2020-01-20] MEDS: HUMULIN R SUBQ SCH ×4 (06:59→21:02)
[2020-01-20] MEDS: CLINIMIX E 4.25%-5% SOLUTION 1,000 ML IV SCH ×2 (07:49→15:57)
[2020-01-20] MEDS ORDERED: HALDOL IV PRN (09:22)
[2020-01-20] MEDS ORDERED: GEODON IM PRN (09:23)
[2020-01-20] MEDS ORDERED: STERILE WATER INJ. INJ PRN (09:23)
[2020-01-20] MEDS: LANTUS INSULIN SUBQ SCH (10:53)
[2020-01-20] MEDS: MIRALAX PO SCH (10:55)
[2020-01-20] MEDS: DULCOLAX PR SCH (10:55)
--- NOTE | 2020-01-20 11:39 | GASTROENTEROLOGY PROGRESS NOTE ---
DATE: 01/20/2020 SUBJECTIVE: Mr. Wallace is a 54-year-old male resting in bed. The patient complained about feeling nauseated. The patient was not willing to talk. He said he wanted to sleep. OBJECTIVE: Vital Signs: The patient has no new vital signs. He did not allow the geriatric nursing assistant to take his vital signs. General: He is alert, oriented x3, and in no acute distress. His weight is 120 pounds. BMI is 18.8 kg/m2. HEENT: Pale conjunctivae. No icterus. PERRL. Neck: Supple. Lungs: Mild wheezing heard in the anterior magallanes. Cardiovascular: Regular rate and rhythm. Abdomen: Soft, nontender, nondistended. Active bowel sounds heard in all 4 quadrants. Extremities: No clubbing, no cyanosis. Generalized edema in the lower extremities. Neurologic: Alert, oriented x3. LABORATORY DATA: WBCs are 4.73, RBCs 4.05, hemoglobin is 9.4, hematocrit is 31.0, platelet count is 238. Sodium is 139, potassium 3.3, chloride 103, carbon dioxide 24, anion gap 12. BUN 20, creatinine is 0.9, glucose is 205, calcium is 8.3, phosphorus is 3.7, magnesium is 1.7. Total bilirubin 0.26, AST 10, ALT 7, alkaline phosphatase 71, albumin is 2.1. Urinalysis yesterday showed protein of 100, glucose of 203, trace of ketones. IMAGING STUDIES: Chest x-ray yesterday showed bilateral bronchopneumonia plus/minus pulmonary edema. IMPRESSION AND PLAN: 1. Nausea and vomiting. 2. Dysphagia. 3. Hypokalemia. 4. Esophageal stricture. 5. Esophagitis. 6. Encephalopathy. 7. Methamphetamine abuse. 8. Hepatitis C. 9. Pneumonia. PLAN: Mr. Wallace is a 54-year-old male, who is in the hospital for nausea and vomiting. The patient has been very noncompliant. He dislodged his NG tube, which was placed for the second time yesterday. The patient is currently n.p.o., except ice chips. He is on antiemetic Zofran for his nausea and vomiting and PPIs twice a day. For his diabetes he is on insulin Lantus and Humulin as per sliding scale. The patient is receiving antibiotic Zosyn. For his bowel regimen he is Dulcolax twice a day and MiraLAX daily. The patient is on Clinimix at 80 mL for his nutrition. The patient is receiving potassium chloride IV per PCP for his hypokalemia.. We will continue to monitor the patient and follow the plan of care per PCP. This plan was discussed with Dr. Calderon. Please call us for any further questions or concerns. Dictated by COURTNEY Stafford for Alen Calderon MD [facility]
--- NOTE | 2020-01-20 15:11 | Diag Imaging Result Doc PS360 ---
EXAM: CHEST-1 VIEW 01/20/2020 HISTORY: check tube placement TECHNIQUE: Erect AP portable at 1502 COMMENT: There is an NG tube with its tip in the distal stomach. There is patchy ill-defined opacity bilaterally. This has diminished slightly since the previous studies of 01/19/2020. There is still a fairly dense opacity in the parahilar left apex. IMPRESSION: NG tube in the stomach. Slightly improved pulmonary edema versus pneumonia. Electronically signed by Anil Gilliam 01/20/2020 3:09 PM
--- NOTE | 2020-01-20 15:19 | PROGRESS NOTE ---
DATE: 01/20/2020 INTERVAL HISTORY: The patient again pulled out his NG tube overnight. He also pulled out his IV. Questioned patient on why he did this, and he shrugged and said I do not know. No confusion noted. The patient has been instructed multiple times on the importance of getting him nutrition, and being able to give him medication. He does express understanding currently. He is currently amenable to placing nasogastric tube and IV. Discussed with nursing. We will attempt to restart tube feeds. Discussed with patient that if his intermittent noncompliance continues, it could lead to significant illness and possibly even . REVIEW OF SYSTEMS: Twelve point review of systems negative except as per interval history. LABORATORY: WBC 4.7, hemoglobin 9.4, hematocrit 31.0, and platelets 238,000. Sodium 139, potassium 3.3, BUN 20, creatinine 0.9, glucose 190 to 242. OBJECTIVE: Vitals: T-max 98.5 degrees, pulse 61, respirations 19, blood pressure 125/48, and O2 saturation 97% on room air. General: No acute distress. Vitals: As above. HEENT: Normocephalic, atraumatic. No cervical adenopathy. Cardiovascular: Regular rate and rhythm. No murmurs noted. Pulmonary: Largely clear to auscultation bilaterally at this point. Abdomen: Soft, nontender, and nondistended. Bowel sounds positive. Extremities: Peripheral pulses intact. No clubbing or cyanosis. Mild pitting edema bilaterally. Neurologic: Cranial nerves grossly intact. No focal deficits identified. Psychiatric: Asleep but easily arousable, cooperative, conversant, and oriented x3. ASSESSMENT AND PLAN: 1. Dysphagia, esophageal stricture, and esophagitis. Patient remains on PPI. The plan has been to try to give him tube feeds and if tolerates those, possibly consider surgical feeding tube placement, but patient has been wildly noncompliant with feeding tube so far. He has removed it twice. No confusion or encephalopathy has been noted over the last 2 to 3 days. Again, discussed this with the patient. He is currently amenable, but if he continues to be noncompliant, options may be quite limited. 2. Likely aspiration pneumonia. The patient is saturating well on room air at this point. No fever or tachycardia. On antibiotics with Zosyn which we would continue for now, but likely stable transition to oral antibiotic at discharge at this point. 3. Diabetes mellitus. There are some mild elevations but, overall acceptable control on current regimen. Monitor. 4. Amphetamine and methamphetamine abuse. Patient has been counseled on cessation. 5. Hypokalemia. We will replete and monitor. 6. DKA resolved. 7. Medical noncompliance. This represents a significant barrier to caring for the patient. If he continues to be noncompliant with feeding access and IV access, then his manager intermediate prognosis will likely be quite poor. 8. History of hepatitis C noted.
[2020-01-20] MEDS: PROTONIX IV SCH ×2 (16:02→21:02)
[2020-01-20] MEDS: POTASSIUM CHLORIDE 20 MEQ/SWI 20 MEQ/100 ML IVPB IV SCH ×2 (16:28→21:09)
[2020-01-21] MEDS: DULCOLAX PR SCH ×2 (03:59→10:41)
[2020-01-21] MEDS: CLINIMIX E 4.25%-5% SOLUTION 1,000 ML IV SCH (03:59)
[2020-01-21] MEDS: ZOSYN 3.375 GM in NS 50 ML IV SCH (03:59)
[2020-01-21 04:37] VITALS: BP 128/69
[2020-01-21] MEDS: LOVENOX SUBQ SCH (05:18)
[2020-01-21 05:42] LABS: BASO# 0.04 X1000 (0.0-0.2); EOS# 0.02 X1000 (0.0-0.7); EOS% 0.5 % (0.0-10.0); HEMOGLOBIN 9.4 g/dL (14.0-18.0); LYMPH# 1.03 X1000 (1.2-3.4); LYMPH% 24.6 % (20.5-51.1); MCH 23.4 PG (27-31); MCHC 31.3 g/dL (33-37); MCV 74.8 FL (81-99); MONO# 0.18 X1000 (0.11-0.59); MONO% 4.3 % (1.7-9.3); MPV 9.6 FL (7.4-10.4); NEUT# 2.91 X1000 (1.4-6.5); NEUT% 69.6 % (42.2-75.2); PLT 241 X1000 (130-400); RBC 4.01 XMIL (4.7-6.1); WBC 4.18 X1000 (4.8-10.8)
[2020-01-21 06:08] LABS: AGAP 17; ALB/GLOB RATIO 0.7; ALBUMIN 2.2 g/dL (3.5-5.0); ALKALINE PHOSPHATASE 84 U/L (32-122); BUN 20 mg/dL (8-22); CHLORIDE 95 mmol/L (98-107); COSMO 274; CREATININE 0.9 mg/dL (0.7-1.2); ESTIMATED GFR > 60; GLUCOSE 284 mg/dL (70-104); GOT 10 U/L (10-34); GPT 7 U/L (10-44); MAGNESIUM 1.6 mg/dL (1.5-2.7); POTASSIUM 3.9 mmol/L (3.5-5.1); SODIUM 130 mmol/L (136-145); TCO2 18 mmol/L (25-35); TOTAL BILIRUBIN 0.25 mg/dL (0.20-1.00); TOTAL PROTEIN 5.4 g/dL (6.3-8.3)
[2020-01-21] MEDS: HUMULIN R SUBQ SCH (06:23)
[2020-01-21] MEDS: MIRALAX PO SCH (10:42)
[2020-01-21] MEDS: LANTUS INSULIN SUBQ SCH (10:42)
[2020-01-21] MEDS: PROTONIX IV SCH (10:43)
--- NOTE | 2020-01-21 13:23 | DISCHARGE SUMMARY ---
ADMISSION DATE: 01/15/2020 DISCHARGE DATE: 01/21/2020 DISPOSITION: Discharged against medical advice. CONSULTATIONS: 1. GI, Dr. Calderon. 2. Surgery, Dr. Treviño DISCHARGE DIAGNOSES: 1. Dysphagia. 2. Esophageal stricture. 3. Esophagitis. 4. Aspiration pneumonia. 5. Medical noncompliance. 6. Amphetamine and methamphetamine abuse. 7. Diabetes mellitus. 8. Hypokalemia. 9. Diabetic ketoacidosis, resolved. 10. History of hepatitis C. HOSPITAL COURSE: The patient presented initially with mild DKA and ongoing dysphagia due to esophagitis. He had been in the hospital approximately a month prior and left AMA. The patient was initially put on insulin drip with rapid correction of his DKA. He was also found to have most likely an aspiration pneumonia and placed on empiric antibiotics. The pneumonia also improved fairly rapidly. The patient had a fairly known severe esophageal stricture. Last EEG was on 01/09. They had planned to do repeat, but had to cancel it because the patient ate despite being n.p.o. and no hospital staff bringing him food. NG tube was placed, but patient kept pulling out his NG tube and IV's. The patient was never noted to be confused, and every time that I personally saw him, he was fully oriented. The patient also refused to be n.p.o., even when he was having issues with vomiting, going to the point of taking his urinal and filling it up at the sink so he could drink water. Discussed this behavior with the patient. He said that he was thirsty, so he drank, that he did not like the tube and the IV, so he pulled them out. We had multiple discussions with the patient about how this was limiting our ability to do anything for him. He did eventually finish a 7-day course of antibiotics for his pneumonia. He was satting well on room air. He continued to have issues with dysphagia, but was adamant in refusing to keep in NG tubes or IV's, and eventually after an extensive discussion, elected to leave against medical advice again. DISCHARGE VITAL SIGNS: Temperature 98.4 degrees, pulse 98, respirations 18, blood pressure 128/69, O2 saturation 98% on room air. DISCHARGE MEDICATIONS: No changes as patient left against medical advice. FOLLOWUP AND PLAN: The patient left against medical advice. TIME SPENT: Greater than 30 minutes spent arranging discharge and counseling patient.
--- NOTE | 2020-01-21 13:57 | PROVIDER PROGRESS NOTE ---
Progress Note S: Patient pulled out DHT and IV overnight after being replaced. He refuses to remain NPO and continues to refuse care. O: Last Vital Signs Temp 98.4 F 01/21/20 04:00 Pulse 98 H 01/21/20 08:17 Resp 18 01/21/20 08:17 BP 128/69 01/21/20 04:00 Pulse Ox 98 01/21/20 08:17 Height 5 ft 7 in Weight 117 lb 2 oz GEN: cachetic, NAD HEENT: anicteric, MMM NECK: supple, no JVD PULM: normal WOB CV: RRR, no murmurs ABD: soft NT/ND EXT: no cce NEURO: nonfocal, sitting in chair LABS: 01/21/20 01/21/20 05:16 05:16 WBC 4.18 L Hgb 9.4 L Plt Count 241 Sodium 130 L Potassium 3.9 D Chloride 95 L Carbon Dioxide 18 L Anion Gap 17 BUN 20 Creatinine 0.9 Glucose 284 H Total Bilirubin 0.25 AST 10 ALT 7 L Alkaline Phosphatase 84 Total Protein 5.4 L Albumin 2.2 L A/P: Mr. Alne Wallace is a 54 year old man with history of HCV, uncontrolled type 2 diabetes, severe protein calorie malnutrition, polysubstance abuse, esophageal stricture, LA Grade D esophagitis who was admitted with altered mental status and treated for aspiration pneumonia. GI consult for intractable N/V and dysphagia. He was not a candidate for EGD for esophageal dilation given his recent EGD showed LA grade D esophagitis, which poses increased risk for esophageal perforation if dilation were attempted. Surgery said he was poor candidate for surgical PEG or J tube placement. The patient pulled out his DHT and IV twice, and has repeatedly refused care. He also refused to remain NPO despite the explained risks. He is not a candidate for home parenteral nutrition given his substance abuse history. He is signing out AMA today. - Dysphagia - Nausea and vomiting - Esophagitis - Esophageal stricture - Blood loss anemia - Severe protein calorie malnutrition - Polysubstance abuse - Hepatitis C Will sign off. Please call with questions
== END 2020-01-21 10:55 | disposition left against medical advice (07) | DRG 637 ==
LOC: EDBD → P.ED 22:20 → SUATTDRO 01-15 10:15 → 2N 01-15 10:15 → MERGE 01-15 10:15 → 1N 01-16 17:15
PROVIDERS: ATTEND Internal Medicine